=== PATIENT | male | born 1960 | race Hispanic/Latino ===

== ENCOUNTER 2017-11-09 09:59 | Inpatient (IN) | payer BC, MEDICARE ==
[2017-11-09] MEDS: Albuterol-Ipratrop 3 mg / 0.5 (3 ml) UD IH SCH ×3 (10:22→11:00)
--- NOTE | 2017-11-09 10:23 | ED PDOC ---
Arrival/HPI - General Chief Complaint: Shortness Of Breath Time Seen by Provider: 11/09/17 10:11 Historian: Patient, Family (brother) - History of Present Illness Narrative History of Present Illness (Text): 11/09/17 10:18 pt p/w + sob x 4-5 days, worse with exertion, currently sob at rest; + coughing without sputum production over the last few days; pt also noted worsening weight gain and increasing abd girth as well as lower ext swelling; pt states swelling to lower legs has been ongoing since 2 weeks ago; pt states his last alcohol drink was last week; pt states he is not making any noises with breathing, no wheezing; pt states no fever/chills/sweats, no cp/palpitations, mild diffuse abd pain, no n/v, no numbness/tingling, + b/l upper thigh burning/ pain; pt states no urinary/bowel changes, no rashes; no altered behavior is noted by brother; no fall/trauma/sick contact, no travel; pt is here for further eval; pt's without other complaints. 11/09/17 10:26 Time/Duration: < week Symptom Onset: Gradual Symptom Course: Worsening Quality: Tightness Severity Level: 8 Activities at Onset: Rest Context: Sitting, Walking Past Medical History - Provider Review Nursing Documentation Reviewed: Yes - Travel History Have you recently traveled outside [place] w/in the past 3 mons?: No - Infectious Disease Hx of Infectious Diseases: None - Tetanus Immunization Tetanus Immunization: Unknown - Cardiac Hx Cardiac Disorders: Yes Hx Peripheral Edema: Yes (ble +2) - Pulmonary Hx Respiratory Disorders: Yes Hx Asthma: Yes Hx Chronic Obstructive Pulmonary Disease (COPD): Yes Other/Comment: current smoker - Neurological Hx Neurological Disorder: Yes Other/Comment: nueropathy - HEENT Hx HEENT Disorder: Yes (wears eyeglassees) - Hematological/Oncological Hx Anemia: Yes Hx Cirrhosis: Yes - Integumentary Other/Comment: muiltiple healed leg wounds ble - Musculoskeletal/Rheumatological Hx Arthritis: Yes Hx Back Pain: Yes Hx Falls: No Hx Herniated Disk: Yes Hx Spinal Stenosis: Yes Hx Unsteady Gait: Yes (cane) - Gastrointestinal Hx Gastrointestinal Disorders: Yes (ascites; no paracentesis in the past) Hx Liver Failure: Yes - Genitourinary/Gynecological Hx Genitourinary Disorders: (swollen testicles) - Psychiatric Hx Anxiety: Yes Hx Depression: Yes Hx Physical Abuse: No Hx Substance Use: Yes (alcohol) Other/Comment: ETOH - Past Surgical History Past Surgical History: Non-Contributing - Anesthesia Hx Anesthesia: No - Suicidal Assessment Suicidal Thoughts: No Feels Threatened In Home Enviroment: No Family/Social History - Physician Review Nursing Documentation Reviewed: Yes Family/Social History: Unknown Family HX Smoking Status: Current Some Days Smoker Hx Alcohol Use: Yes Amount per day: 6 Hx Substance Use: No Allergies/Home Meds Allergies/Adverse Reactions: Allergies No Known Allergies Allergy (Verified 11/09/17 10:02) Home Medications: Home Meds Medication Instructions Recorded Confirmed Albuterol Sulfate [Proair 1 puff IH DAILY 11/09/17 11/09/17 Respiclick] Clonazepam [Klonopin] 0.5 mg PO BID 11/09/17 11/09/17 Fluticasone/Vilanterol [Breo 1 puff IH DAILY 11/09/17 11/09/17 Ellipta 100-25 Mcg INH] Folic Acid [Folic Acid] 1 mg PO DAILY 11/09/17 11/09/17 Furosemide [Lasix] 20 mg PO DAILY 11/09/17 11/09/17 Gabapentin [Neurontin] 600 mg PO BID 11/09/17 11/09/17 QUEtiapine [SEROquel] 200 mg PO DAILY 11/09/17 11/09/17 Tiotropium [place] [Spiriva 1 puff IH DAILY 11/09/17 11/09/17 Respimat] Review of Systems - Review of Systems Constitutional: Weight Change Eyes: Normal ENT: Normal Respiratory: SOB, Cough. absent: Sputum, Wheezing Cardiovascular: Normal Gastrointestinal: Abdominal Pain Genitourinary Male: Normal Musculoskeletal: Joint Swelling Skin: Normal Neurological: Dizziness Endocrine: Normal Hemo/Lymphatic: Normal Psychiatric: Normal Physical Exam Vital Signs Reviewed: Yes Vital Signs Temp Pulse Resp BP Pulse Ox 11/09/17 11:51 95 H 17 136/86 97 11/09/17 10:31 16 97 11/09/17 10:22 161/94 H 11/09/17 10:05 98.6 F 95 H 21 161/94 H 97 Temperature: Afebrile Blood Pressure: Hypertensive Pulse: Regular Respiratory Rate: Tachypneic Appearance: Positive for: Well-Appearing, Non-Toxic, Other (uncomfortable, moderate distress due to sob, alert/awake, resting in bed, cooperative) Pain Distress: None Mental Status: Positive for: Alert and Oriented X 3 - Systems Exam Head: Present: Atraumatic, Normocephalic Pupils: Present: PERRL, Other (no nystagmus, no photophobia, sclera slightly icteric, visual field intact b/l) Extroacular Muscles: Present: EOMI Ears: Present: Normal Mouth: Present: Dry, Other (fair dentitions, no drooling/stridor, no dysphonia, no exudate/lesions) Nose (External): Present: Atraumatic Neck: Present: Normal Range of Motion, Trachea Midline, Other (no meningeal signs noted). No: MIDLINE TENDERNESS Respiratory/Chest: Present: Other (no asymmetric breath sounds, decr breath sounds noted, mild tachypenia, no accessory muscle use noted, basiliar crackles noted, no gross wheezing/rales/rhonchi b/l). No: Respiratory Distress, Accessory Muscle Use Cardiovascular: Present: Regular Rate and Rhythm, Normal S1, S2, Tachycardic, Other (distant heart sound, +S1, +S2, + tachy, no murmur, no regurg). No: Murmurs Abdomen: Present: Normal Bowel Sounds, Other (well nourished/obese male, + distended abd, no focal tenderness, no fluid wave noted, no martínez's sign, no mcburney's point tenderness, no masses/rebound/guarding/rigidity). No: Tenderness, Distention, Peritoneal Signs Back: Present: Normal Inspection Upper Extremity: Present: Normal Inspection, Normal ROM, NORMAL PULSES, Neurovascularly Intact, Capillary Refill < 2s. No: Cyanosis, Edema Lower Extremity: Present: NORMAL PULSES, Swelling, Other (b/l lower ext swelling /pitting edema ~ +3-4/5 up to proximal knee region; dry skin, no ulcerations noted, no harsha's sign noted b/l, strength 5/5 grossly intact in all limbs, +2/ 2 distal pulses noted; slight dusky appearance of b/l foot/toes, warm to touch however). No: Edema, Harsha's Sign Neurological: Present: GCS=15, CN II-XII Intact, Speech Normal, Other (no facial asymmetries) Skin: Present: Warm, Dry. No: Rashes, Erythematous, Pale Psychiatric: Present: Alert, Oriented x 3, Normal Insight, Normal Concentration Medical Decision Making ED Course and Treatment: 11/09/17 10:27 Impression: sob/weight gain/leg swelling, abd distention i have consider all the differential diagnosis regarding pt's chief medical complaints/clinical findings, including but are not limited to: Differential Diagnosis included but are not limited to: likely worsening ascites , r/o cardiogenic cause, r/o pulm cause, r/o infection; unlikely encephalopathy A/P: weakness/weight changes/leg swelling/abd distention/sob - labs - iv - xray - u/s - ekg - observe - supportive care 11/09/17 13:15 12:30pm - I spoke with Dr Mackey, PCP [facility], made aware, agrees with ED mgt/ txt/dx and agrees with admission, would like Dr Sebastien Johnston consulted for possible IR procedure tomorrow and agrees with consult with PSYCH for alcohol detoxification pt is feeling improved, less sob pt is able to speak in full sentences i have addressed pt's concern/questions regarding his diagnosis/medical findings and possibility of paracentesis pt is made aware pt agrees with admission Re-evaluation Time: 10:29 Reassessment Condition: Improving,but remains with symptoms - Critical Care Critical Care Minutes: 45 minutes Critical Care Time: Excluding Proc Time Narrative Critical Care (Text): 11/09/17 10:36 critical care time: 45min, excluding procedure time, excluding time teaching residents/students/mid-level providers; including initial eval/diagnosis, diagnostic interpretation, re-eval, consultations, final disposition - Lab Interpretations Lab Results: 11/09/17 10:10 11/09/17 10:10 Lab Results 11/09/17 11:20: Urine Color Yellow, Urine Appearance Clear, Urine pH 7.0, Ur Specific [place] 1.010, Urine Protein Negative, Urine Glucose (UA) Negative, Urine Ketones Negative, Urine Blood Negative, Urine Nitrate Negative, Urine Bilirubin Negative, Urine Urobilinogen 0.2, Ur Leukocyte Esterase Negative 11/09/17 10:35: pO2 23 L, VBG pH 7.36, VBG pCO2 55.0, VBG HCO3 31.1 H, VBG Total CO2 32.8 H, VBG O2 Sat (Calc) 46.7, VBG Base Excess 4.2 H, VBG Potassium 4.0, Glucose 120 H, Lactate 1.8, FiO2 21.0, Sodium 140.0, Chloride 99.0, Venous Blood Potassium 4.0 11/09/17 10:10: Alcohol, Quantitative < 10 11/09/17 10:10: Ammonia < 9 L 11/09/17 10:10: Sodium 142, Potassium 3.8, Chloride 100, Carbon Dioxide 29, Anion Gap 17, BUN 9, Creatinine 0.9, Est GFR ( Amer) > 60, Est GFR (Non- Af Amer) > 60, Random Glucose 116 H, Calcium 9.7, Phosphorus 4.1, Magnesium 2.1 , Total Bilirubin 2.0 H, AST 38, ALT 32, Alkaline Phosphatase 115, Lactate Dehydrogenase 477, Total Creatine Kinase 95, Troponin I < 0.01, NT-Pro-B Natriuret Pep 1020 H, Total Protein 8.5 H, Albumin 4.5, Globulin 4.0, Albumin/ Globulin Ratio 1.1 11/09/17 10:10: PT 16.5 H, INR 1.49 H, APTT 33.6 11/09/17 10:10: WBC 6.1, RBC 5.30, Hgb 14.9, Hct 47.1, MCV 88.9, MCH 28.1, MCHC 31.6, RDW 14.5, Plt Count 151, MPV 10.8, Gran % 67.3, Lymph % (Auto) 16.3 L, [place] % (Auto) 13.2 H, Eos % (Auto) 2.5, Baso % (Auto) 0.7, Gran # 4.12, Lymph # 1.0 L, [place] # 0.8 H, Eos # 0.2, Baso # 0.04 elevated BNP, mildly elevated bili I have reviewed the lab results: Yes (elevated BNP) Interpretation: Abnormal lab values - RAD Interpretation Radiology Orders: 11/09/17 10:13 CHEST TWO VIEWS (PA/LAT) [RAD] Stat 11/09/17 10:14 DUPLEX LOWER EXTRM VEIN BILAT [US] Stat 11/09/17 10:16 ABDOMEN COMPLETE [US] Stat Cxr - poor insp effort right pleural atelectasis linear opacity noted to right lower lung horn vascular congestion noted 11/09/17 11:50 chest xray Creator : Chalino Tobar MD IMPRESSION: Right lower lobe infiltrate, atelectasis. These represent new findings compared to the prior study. Concordant results with the preliminary interpretation rendered by the emergency department physician\RADHA at the conclusion of the procedure. 11/09/17 11:57 US abdomen Creator : Chalino Tobar MD IMPRESSION: Hepatosplenomegaly without focal abnormality. Intra-abdominal ascites. Duplex u/s: prelim reading, NO DVT b/l Boilermaker Loftsman: ED Physician, Radiologist - EKG Interpretation EKG Interpretation (Text): 11/09/17 11:09 Sinus tach at 100 bpm, with PACs, normal axis, diffuse low voltage, non- specific st-t changes, ABNL EKG; unchanged compare with old ekg 03/201511/09/17 11:11 Interpreted by ED Physician: Yes Type: 12 lead EKG - Medication Orders Current Medication Orders: Discontinued Medications Albuterol/Ipratropium (Duoneb 3 Mg/0.5 Mg (3 Ml) Ud) 3 ml IH Q15M ITALIA Stop: 11/09/17 10:46 Last Admin: 11/09/17 11:00 Dose: 3 ml Furosemide (Lasix) 100 mg IVP STAT STA Stop: 11/09/17 10:15 Last Admin: 11/09/17 10:22 Dose: 100 mg MAR Blood Pressure Document 11/09/17 10:22 [facility] (Rec: 11/09/17 10:23 [facility] [id number]) Blood Pressure Blood Pressure (100/60-150/90) 161/94 IVP Administration Document 11/09/17 10:22 [facility] (Rec: 11/09/17 10:23 [facility] [id number]) Charges for Administration # of IVP Administrations 1 Disposition/Present on Arrival - Present on Arrival Any Indicators Present on Arrival: No History of DVT/PE: No History of Uncontrolled Diabetes: No Urinary Catheter: No History of Decub. Ulcer: No History Surgical Site Infection Following: None - Disposition Have Diagnosis and Disposition been Completed?: Yes Diagnosis: Ascites due to alcoholic cirrhosis, Shortness of breath, Leg edema Disposition: HOSPITALIZED Disposition Time: 11:18 Patient Plan: Admission Condition: STABLE
[2017-11-09 10:37] LABS: BASO # 0.04 K/mm3 (0.0-2.0); BASO % 0.7 % (0.0-3.0); EOS # 0.2 (0.0-0.7); EOS % 2.5 % (1.5-5.0); GRAN # 4.12 (1.4-6.5); GRAN % 67.3 % (50.0-68.0); HEMOGLOBIN 14.9 g/dL (14.0-18.0); LYMPH % 16.3 % (22.0-35.0); MEAN CELL VOLUME 88.9 fl (80.0-105.0); MEAN CORPUSCULAR HEMOGLOBIN 28.1 pg (25.0-35.0); MEAN CORPUSCULAR HGB CONC 31.6 g/dl (31.0-37.0); MEAN PLATELET VOLUME 10.8 fl (7.0-11.0); MONO # 0.8 (0.1-0.6); MONO % 13.2 % (1.0-6.0); RBC 5.3 10^6/uL (3.5-6.1); RED CELL DISTRIBUTION WIDTH 14.5 % (11.5-14.5); WHITE BLOOD COUNT 6.1 10^3/ul (4.5-11.0)
[2017-11-09 10:40] LABS: VENOUS BLOOD GAS BASE EXCESS 4.2 mmol/L (0.0-2.0); VENOUS BLOOD GAS PO2 23 mm/Hg (30-55); VENOUS BLOOD PH 7.36 (7.32-7.43)
[2017-11-09 10:43] LABS: ALB/GLOB RATIO 1.1 (1.1-1.8); ALBUMIN 4.5 g/dL (3.0-4.8); ALT/SGPT 32 U/L (7-56); AST/SGOT 38 U/L (17-59); BLOOD UREA NITROGEN 9 mg/dL (7-21); CALCIUM 9.7 mg/dL (8.4-10.5); GFR AFRICAN-AMERICAN > 60; GFR NON-AFRICAN AMERICAN > 60; MAGNESIUM 2.1 mg/dL (1.7-2.2)
[2017-11-09 10:47] LABS: INR 1.49 (0.93-1.08); PARTIAL THROMBOPLASTIN TIME 33.6 Seconds (25.1-36.5); PROTHROMBIN TIME 16.5 SECONDS (9.4-12.5)
[2017-11-09 10:54] LABS: B-TYPE NATRIURETIC PEPTIDE 1020 pg/mL (0-450); TROPONIN I < 0.01 ng/mL
[2017-11-09 11:47] LABS: URINE BILIRUBIN NEGATIVE (NEGATIVE); URINE BLOOD NEGATIVE (NEGATIVE); URINE GLUCOSE (UA) NEGATIVE (NEGATIVE); URINE LEUKOCYTE ESTERASE NEGATIVE Leu/uL (NEGATIVE); URINE NITRATE NEGATIVE (NEGATIVE); URINE PROTEIN NEGATIVE mg/dL (<30 mg/dL); URINE UROBILINOGEN 0.2 E.U./dL (<1 E.U./dL)
--- NOTE | 2017-11-09 11:48 | RAD ---
HISTORY: Shortness of breath. COMPARISON: 03/23/2015. TECHNIQUE: Chest PA and lateral FINDINGS: LUNGS: Mahesh lower lobe infiltrates/atelectasis. PLEURA: No significant pleural effusion identified. No pneumothorax apparent. CARDIOVASCULAR: Cardiomegaly. No evidence of acute, significant cardiovascular disease. OSSEOUS STRUCTURES: No significant abnormalities. VISUALIZED UPPER ABDOMEN: Normal. OTHER FINDINGS: None. IMPRESSION: Right lower lobe infiltrate, atelectasis. These represent new findings compared to the prior study. Concordant results with the preliminary interpretation rendered by the emergency department physician procedure.
[2017-11-09 11:51] LABS: URINE APPEARANCE CLEAR (CLEAR); URINE COLOR YELLOW (YELLOW)
--- NOTE | 2017-11-09 11:55 | US ---
HISTORY: severe abd swelling, likely ascites COMPARISON: 03/25/2015 TECHNIQUE: Sonographic evaluation of the abdomen. FINDINGS: LIVER: Measures 22.8 cm. Hepatopedal blood flow. Fatty infiltration manifest ultrasonographically as increased echogenicity of the liver parenchyma. No mass. No intrahepatic bile duct dilatation. GALLBLADDER: Unremarkable. No gallstones. COMMON BILE DUCT: Measures 6.5 mm. No stones. No dilatation. PANCREAS: Obscured by overlying bowel gas. Non diagnostic assessment of the pancreas RIGHT KIDNEY: Measures 6.4 x 14cm. Normal echogenicity. No calculus, mass, or hydronephrosis. LEFT KIDNEY: Measures 6.4 x 13.7cm. Normal echogenicity. No calculus, mass, or hydronephrosis. SPLEEN: Splenomegaly. Orthogonal measurements 9.4 x 13.8 cm. AORTA: Obscured by overlying bowel gas. Non diagnostic assessment of abdominal aorta IVC: Obscured by overlying bowel gas. Non diagnostic assessment of inferior vena cava OTHER FINDINGS: Intra-abdominal ascites difficult to quantify. IMPRESSION: Hepatosplenomegaly without focal abnormality. Intra-abdominal ascites.
[2017-11-09 15:06] VITALS: BMI 46.6
[2017-11-09] MEDS ORDERED: Pneumococcal 23-Valent Vaccine IM ONE (15:06)
[2017-11-09] MEDS ORDERED: Influenza Vaccine 60 mcg/0.5 mL SYR (4YR UP) IM ONE (15:06)
[2017-11-09] MEDS: HYDROmorphone 0.5 mg/0.5 ml ISec IVP PRN (16:41)
[2017-11-09] MEDS ORDERED: TIOTROPIUM BROMIDE IH SCH (16:45)
[2017-11-09 20:00] LABS: IRON 62 ug/dL (45-180)
[2017-11-09 20:14] LABS: % IRON SATURATION 16 % (20-55); TOTAL IRON BINDING CAPACITY 375 ug/dL (261-462)
[2017-11-09] MEDS: MethylPREDNISolone 40 mg Vial IVP SCH (21:51)
--- NOTE | 2017-11-10 00:38 | CON ---
DATE: 11/09/2017 PULMONARY CONSULTATION REFERRING PHYSICIAN: Dr. Mackey REASON FOR CONSULT: Sleep apnea syndrome, chronic lung disease. HISTORY OF PRESENT ILLNESS: This is a 57-year-old gentleman with past medical history significant for chronic obstructive lung disease, history of respiratory failure in the past, chronic leg edema, history of peripheral neuropathy, anemia, cirrhotic liver, ascites, degenerative joint disease, herniated disk, spinal stenosis, has a history of paracentesis in the past, decompensated liver, scrotal edema, anxiety, depression, history of suicidal ideation in the past, comes in the ER with shortness breath, cough, leg swelling, received diuretics, feels better. No hemoptysis. No hematemesis. No hematuria. No diarrhea reported. PAST MEDICAL HISTORY: As per history of present illness. FAMILY HISTORY: Significant cardiopulmonary disease is reported. SOCIAL HISTORY: Active smoker, drinks excessive alcohol use. ALLERGIES: NONE KNOWN. MEDICATIONS: He is on Dilaudid 0.25 mg q. 6 hours p.r.n., folic acid 1 mg daily, Klonopin 0.25 mg twice a day, Lasix 20 mg daily, Neurontin 600 mg twice a day, Seroquel 200 mg daily. REVIEW OF SYSTEMS: No headache or rhinitis. Has cough, shortness of breath, chest pain. No nausea, no vomiting. No diarrhea. Has increased abdominal girth, increased leg swelling. Admitted snoring, known sleep apnea syndrome. PHYSICAL EXAMINATION: GENERAL: [id number] distress. VITAL SIGNS: Temperature is 98, heart rate 101, respiratory rate is 20, blood pressure 141/91, pulse oximetry 98% on 2 liters nasal cannula. HEENT: Moist mucous membrane. Crowded airway. Mallampati score is 4. NECK; Supple. No JVD. LUNGS: Has scattered rhonchi and wheezing. HEART: S1 and S2. ABDOMEN: Has ascites, distended. EXTREMITIES: Has significant swelling. NEUROLOGIC: Awake and alert, follows simple commands. LABORATORY DATA: Shows hemoglobin 14.9, hematocrit 47.1, WBC 6.1, platelet count is 151. INR 1.49, PTT 34. Has a VBG done which shows pH 7.36, pCO2 55, O2 is 23. Sodium 142, potassium 3.8, chloride 100, bicarbonate 29, BUN 9, creatinine 0.9, glucose 116, calcium is 9.7, magnesium 2.1, phosphorus 4.1, total bili 2.0, AST 38, ALT 32, alk phos is 115, ammonia less than 19. ProBNP 1020, albumin 4.5. Troponin less than 0.01. Alcohol level less than 10. Has abdominal ultrasound done, shows hepatosplenomegaly without focal abnormality, intra-abdominal ascites. Chest x-ray done in ER shows right lower lobe infiltrate and atelectasis. IMPRESSION AND PLAN: Pneumonia, morbid obesity, sleep apnea syndrome, cirrhotic liver with ascites, obstructive pulmonary disease, history of pulmonary hypertension, history of anxiety, depression, history of suicidal ideation in the past. We will start antibiotics, IV and inhaled bronchodilators, pain management, diuretics. May benefit from therapeutic paracentesis. The patient has to stop smoking. We will place him on BiPAP while sleeping. Careful with sedation. Fall precautions. We will add thiamine. Thank you and we will follow with you. Juan Marie MD
[2017-11-10 07:05] LABS: HEMOGLOBIN 14.2 g/dL (14.0-18.0); MEAN CELL VOLUME 88.9 fl (80.0-105.0); MEAN CORPUSCULAR HEMOGLOBIN 27.6 pg (25.0-35.0); MEAN CORPUSCULAR HGB CONC 31.1 g/dl (31.0-37.0); MEAN PLATELET VOLUME 10.7 fl (7.0-11.0); RBC 5.14 10^6/uL (3.5-6.1); RED CELL DISTRIBUTION WIDTH 14.4 % (11.5-14.5); WHITE BLOOD COUNT 5.6 10^3/ul (4.5-11.0)
[2017-11-10 07:11] LABS: INR 1.52 (0.93-1.08); PROTHROMBIN TIME 16.9 SECONDS (9.4-12.5)
[2017-11-10 07:15] LABS: B-TYPE NATRIURETIC PEPTIDE 782 pg/mL (0-450)
[2017-11-10 07:20] LABS: LDL CHOLESTEROL 77 mg/dL (0-129)
[2017-11-10 07:30] LABS: ALB/GLOB RATIO 1.2 (1.1-1.8); ALBUMIN 4.1 g/dL (3.0-4.8); ALT/SGPT 32 U/L (7-56); AST/SGOT 39 U/L (17-59); BILIRUBIN,DIRECT 0.8 mg/dL (0.0-0.4); BLOOD UREA NITROGEN 11 mg/dL (7-21); CALCIUM 9.1 mg/dL (8.4-10.5); GFR AFRICAN-AMERICAN > 60; GFR NON-AFRICAN AMERICAN > 60; HDL CHOLESTEROL 41 mg/dL (29-60)
--- NOTE | 2017-11-10 08:58 | HP ---
CHIEF COMPLAINT: Shortness of breath. HISTORY OF PRESENT ILLNESS: Mr. Garth Kong is a 57-year-old male with history of ascites, feeling with shortness of breath 4 to 5 days, worse with reversion, currently shortness of breath at rest, coughing without sputum production over the last few days. The patient also noted worsening of weight gain and feeling abdominal tilt as well as lower extremities. The patient states that his last alcohol drink was last week. The patient states he is not making any noises with breathing, and no wheezing. The patient states no fever, chills, or sweats. No chest pain, palpitation, mild diffuse abdominal pain. No nausea or vomiting, diarrhea. No numbness or tingling. States no urinary or bowel changes. No rashes. No altered mental status. No fever. No chills. PAST MEDICAL HISTORY: Peripheral edema +2, asthma, COPD, current smoker, peripheral neuropathy, anemia, cirrhosis of the liver, multiple healed leg wound, arthritis, back pain, herniated disc, spinal stenosis, unsteady gait, history of ascites, no paracentesis in the past, liver failure, swollen testicles, anxiety, depression, and history of alcohol abuse. FAMILY HISTORY: Father and mother, noncontributory. HABITS: Smoking, active smoker. Alcohol, active drinking more per day 6; substance abuse, no. ALLERGIES: THE PATIENT IS ALLERGIC WITH ANY MEDICATION. HOME MEDICATIONS: Klonopin, Ventolin, folic acid, Lasix, Neurontin, Seroquel, and Spiriva. REVIEW OF SYSTEMS: The patient seen and EXAMINED on the bedside in the ER. was sitting in the ER also. He has weight gain, has shortness of breath, swelling of the legs, dizziness. No fever. No chills. No hematuria or hematochezia. PHYSICAL EXAMINATION: VITAL SIGNS: Temperature 98.6, pulse 95, respiratory rate 21, blood pressure 120/80 , and pulse oximetry 97. HEENT: Head is normocephalic and atraumatic. Eyes; PERRLA. Extraocular movements are intact. Conjunctivae clear. Nose patent. Mucous membrane moist. NECK: Supple. No carotid bruit, JVD or thyromegaly. CHEST: Bilaterally symmetrical. HEART: S1 and S2 positive. LUNGS: Clear to auscultation. ABDOMEN: Soft. Bowel sounds positive. No organomegaly. EXTREMITIES: Positive edema and pigmentation due to stasis dermatitis. NEUROLOGIC: Awake and alert. Moving all 4 extremities. Cranial nerves are II to XII are grossly intact. Obeying orders. LABORATORY DATA: White blood cells is 6.1, hemoglobin is 14.9, hematocrit is 47.1 and platelets are 151. Sodium 142, potassium 3.8, BUN 9, creatinine 0.9, and glucose of 116. ASSESSMENT AND PLAN: Mr. Garth Kong is a [id number] male came with shortness of breath, has pleural atelectasis, linear opacity noted in the right lower lung field, vascular congestion, right lower lobe infiltrates, hepatomegaly, obesity, ascites due to alcohol liver cirrhosis, history of ethanol abuse, history of smoking, peripheral edema, chronic obstructive pulmonary disease, peripheral neuropathy, multiple healed ulcer on the legs, and stasis dermatitis. Gastrointestinal and deep venous thrombosis prophylaxis. Repeat labs. Discussion done with ER physician. Consult called with Dr. Filiberto Johnston for paracentesis. We will follow up. Winsome Mackey MD MARIZA
[2017-11-10] MEDS: MethylPREDNISolone 40 mg Vial IVP SCH ×2 (09:39→22:21)
[2017-11-10] MEDS: ALBUTEROL SULFATE IH SCH (09:41)
[2017-11-10] MEDS: Tiotropium Bromide [Spiriva Respimat] IH SCH (09:41)
[2017-11-10] MEDS: HYDROmorphone 0.5 mg/0.5 ml ISec IVP PRN ×2 (09:41→20:30)
[2017-11-10] MEDS: Fluticasone/Vilanterol [Breo Ellipta 100-25 Mcg Inh] IH SCH (09:41)
[2017-11-10] MEDS ORDERED: Tiotropium 18 mcg Cap For Inhalation IH SCH (10:00)
[2017-11-10] MEDS ORDERED: cefTRIAXone 1 gm 1 GM/100 ML BAG IVPB SCH (10:00)
[2017-11-10 11:48] LABS: FOLATE > 20.0 ng/mL
--- NOTE | 2017-11-10 13:05 | PCM.SURG1 ---
Surgeon's Initial Post Op Note - Surgeon's Notes Surgeon: Drew Romero MD Construction Management Assistant: NONE Type of Anesthesia: Local Pre-Operative Diagnosis: Cirrhosis, ascites Operative Findings: US showed a large amount of ascites Post-Operative Diagnosis: Cirrhosis, ascites Operation Performed: US guided paracentesis. Specimen/Specimens Removed: 6500 cc of straw colored fluid Estimated Blood Loss: EBL {In ML}: 1 Blood Products Given: N/A Drains Used: No Drains Post-Op Condition: Fair Date of Surgery/Procedure: 11/10/17 Time of Surgery/Procedure: 12:45
--- NOTE | 2017-11-10 13:11 | US ---
HISTORY: Leg pain and swelling. Evaluate for DVT PHYSICIAN(S): Filiberto Johnston MD. TECHNIQUE: Duplex sonography and color-flow Doppler with graded compression were used to evaluate the deep venous systems of both lower extremities. The exam is limited by body habitus and edema. The tibial veins are not well seen FINDINGS: The visualized deep venous systems of both lower extremities are sonographically normal and compressible. Normal wave forms and augmentation are seen. There is no sonographic evidence for deep venous thrombosis in the visualized segments of both lower extremities. IMPRESSION: No sonographic evidence for deep venous thrombosis in the visualized segments of both lower extremities. Limited study
--- NOTE | 2017-11-10 13:40 | US ---
Date of Procedure: 11/10/2017 PROCEDURE: Ultrasound-guided paracentesis, CPT 56429 Medications: 7 cc 1% Lidocaine HISTORY: Ascites, abdominal pain, cirrhosis TECHNIQUE: Following informed consent , the patient was placed supine on the stretcher and the site was marked. A limited abdominal ultrasound was performed that showed a large amount of intra-abdominal fluid. Procedural time out was called and the Pt's abdomen was marked and prepped and draped in the usual sterile fashion. Ultrasound-guided large volume paracentesis performed. A total of 6.5 liters of straw colored fluid was removed without complication. IMPRESSION: Ultrasound-guided large volume paracentesis.
[2017-11-10 15:29] LABS: BODY FLUID TYPE PERITONEAL
[2017-11-10 15:41] LABS: BF GROSS APPEARANCE SL CLOUDY (CLEAR); BODY FLUID TOTAL COUNT 100 (0-0)
--- NOTE | 2017-11-10 17:31 | CARD ---
APPROVED REPORT EKG Measurement Heart [id number] [id number] [id number] <Conclusion> Sinus rhythm with premature atrial complexes Right superior axis deviation Pulmonary disease pattern Nonspecific T wave abnormality Abnormal ECG
--- NOTE | 2017-11-10 21:14 | PN ---
PULMONARY PROGRESS NOTE DATE: 11/10/2017 REFERRING PHYSICIAN: Winsome Mackey MD SUBJECTIVE: He is lying in the bed, feels better, tolerated BiPAP well, and generalized pain is better. Cough and shortness of breath is better, status post paracentesis. OBJECTIVE: GENERAL: In no acute distress. VITAL SIGNS: Temperature is 98, heart is 90, respiratory rate is 20, blood pressure is 113/54, and pulse ox is 98% 2 L nasal cannula. HEENT: Moist mucous membrane. Crowded airway. Mallampati score is IV. NECK: Supple. No JVD. LUNGS: Has a few scattered rhonchi. HEART: S1 and S2. ABDOMEN: Positive bowel sounds, much softer today. EXTREMITIES: There is significant edema. NEUROLOGIC: Awake and alert and follows simple commands. MEDICATIONS: He is on Dilaudid 0.25 mg IV q.6 hours p.r.n., folic acid 1 mg daily, also on Klonopin 0.25 mg twice a day, Lasix 40 mg twice a day, meropenem 1 g IV q.8 hours, gabapentin 600 mg twice a day, Seroquel 200 mg daily, Solu-Medrol mg q.12 hours, vitamin B1 100 mg daily, and Zithromax 500 mg daily. LABORATORY DATA: Shows hemoglobin of 14.2, hematocrit 45.7, WBC 5.6, and platelet is 162. INR 1.52. Sodium 142, potassium 4.7, chloride 100, bicarbonate is 11, creatinine is 0.9, glucose 134, calcium 9.1, AST 39, ALT 32, alk phos is 94, albumin is 4.1, triglyceride is 7.1, and cholesterol is 133. Folate greater than 20. B12 is 673. TSH is 3.20. Has a paracentesis done today, which shows a total 6.5 L of fluid was removed. IMPRESSION AND PLAN: Pneumonia, morbid obesity, sleep apnea syndrome, cirrhotic liver, ascites, obstructive pulmonary disease, pulmonary hypertension, anxiety disorder, depression, history of suicidal ideation in the past, status post volume paracentesis, and continue IV and inhaled bronchodilator. Continue antibiotics. BiPAP while sleeping. Follow up electrolytes closely and watch for prerenal status closely. Thank you and we will follow with you. Juan Marie MD
--- NOTE | 2017-11-10 21:49 | CP.PCM.PN ---
<Mary Grace Phillips - Last Filed: 11/11/17 01:09> Subjective - Date & Time of Evaluation Date of Evaluation: 11/10/17 Time of Evaluation: 09:30 - Subjective Subjective: 68 yr male w/ history of periperhal edema, asthma, COPD, peripheral neuropathy, anemia, cirrhosis of liver, multiple leg wound, DJD, arthritis, back pain, herniated disc, morbid obesity, spinal stenosis, unsteady gait, swollen testicles, anxiety, depression, & ETOH abuse. Pt resting in bed preparing for abdominal paracentesis for his ascites. He denies any stomach discomfort at this time. He states that his legs are painful and are always swollen. Denies any headaches, SOB, N/V, fevers, constipation, diarrhea, urinary changes or distress. Objective - Vital Signs/Intake and Output Vital Signs (last 24 hours): Temp Pulse Resp BP Pulse Ox 98.3 F 90 20 113/54 L 98 11/10/17 16:00 11/10/17 16:00 11/10/17 16:00 11/10/17 16:00 11/10/17 16:00 Intake and Output: 11/10/17 11/11/17 18:59 06:59 Intake Total 720 780 Balance 720 780 - Medications Medications: Current Medications Azithromycin (Zithromax) 500 mg PO DAILY [facility] PRN Reason: Protocol Last Admin: 11/10/17 09:40 Dose: 500 mg Clonazepam (Klonopin) 0.25 mg PO BID [facility] PRN Reason: Protocol Last Admin: 11/10/17 17:03 Dose: 0.25 mg Folic Acid (Folic Acid) 1 mg PO DAILY [facility] Last Admin: 11/10/17 09:40 Dose: 1 mg Furosemide (Lasix) 40 mg IVP Q12 [facility] Last Admin: 11/10/17 09:42 Dose: 40 mg Gabapentin (Neurontin) 600 mg PO BID [facility] PRN Reason: Protocol Last Admin: 11/10/17 17:03 Dose: 600 mg Home Med (Home Med) 1 unit IH DAILY [facility] Last Admin: 11/10/17 09:41 Dose: 1 unit Home Med (Home Med) 1 unit IH DAILY [facility] Last Admin: 11/10/17 09:41 Dose: 1 unit Home Med (Home Med) 1 unit IH DAILY [facility] Last Admin: 11/10/17 09:41 Dose: 1 unit Hydromorphone HCl (Dilaudid) 0.25 mg IVP Q6H PRN PRN Reason: Pain, severe (8-10) Last Admin: 11/10/17 20:30 Dose: 0.25 mg Meropenem (Merrem Iv 1 Gm Premix) 50 mls @ 100 mls/hr IVPB Q8 [facility] PRN Reason: Protocol Stop: 11/19/17 22:01 Methylprednisolone (Solu-Medrol) 30 mg IVP Q12 [facility] Last Admin: 11/10/17 09:39 Dose: 30 mg Quetiapine Fumarate (Seroquel) 200 mg PO DAILY [facility] Last Admin: 11/10/17 09:39 Dose: 200 mg Thiamine HCl (Vitamin B1 Tab) 100 mg PO DAILY [facility] Last Admin: 11/10/17 09:40 Dose: 100 mg - Labs Labs: 11/10/17 06:40 11/10/17 06:40 PT 16.9 SECONDS (9.4-12.5) H 11/10/17 06:40 INR 1.52 (0.93-1.08) H 11/10/17 06:40 APTT 33.6 Seconds (25.1-36.5) 11/09/17 10:10 - Constitutional Appears: Chronically Ill - Head Exam Head Exam: ATRAUMATIC, NORMAL INSPECTION, NORMOCEPHALIC - Eye Exam Eye Exam: EOMI, Normal appearance, PERRL - ENT Exam ENT Exam: Mucous Membranes Moist, Normal Exam - Neck Exam Neck Exam: Full ROM, Normal Inspection. absent: Lymphadenopathy - Respiratory Exam Respiratory Exam: Decreased Breath Sounds, Clear to Ausculation Bilateral, NORMAL BREATHING PATTERN - Cardiovascular Exam Cardiovascular Exam: REGULAR RHYTHM, +S1, +S2. absent: Murmur - GI/Abdominal Exam GI & Abdominal Exam: Distended, Firm Additional comments: ascites. morbidly obese. - Extremities Exam Extremities Exam: Joint Swelling, Tenderness Additional comments: BLE discoloration. warm. edematous +2 - Neurological Exam Neurological Exam: Alert, Awake, Oriented x3 - Psychiatric Exam Psychiatric exam: Depressed, Normal Affect - Skin Skin Exam: Dry, Intact, Normal Color, Warm Assessment and Plan (1) Hyperglycemia Status: Acute (2) Elevated LFTs Status: Acute (3) Pneumonia Status: Acute (4) Ascites due to alcoholic cirrhosis Status: Acute (5) Shortness of breath Status: Acute - Assessment and Plan (Free Text) Plan: IV meropenem/azithromycin. IV steroids. Bipap. Paracentesis done (650ml removed) . BLE discoloration, possible cellulitis podiatry evaluation pending. ETOH/ Depression psych evaluation pending. Consults: Surgery - Dr. Katya Johnston = ? GI - Dr. Garcias = ? Pulmonary - = IV abx azithromycin. IV and inhaled bronchodilators. therapeutic paracentesis recommended. smoking cessation, fall precautions, added thiamine. I.D. - Dr. Mccrary = EF 56%, IV abx meropenem, cultures (sputum, urine, peritoneal fluid), r/o legionella antigen in urine Podiatry - Dr. Cho = ? Psych - Dr. Doll = ? Reviewed: CXR = RLL infiltrate, atelectasis Bilateral leg doppler = (-) DVT US abd = hepatosplenomegaly w/o focal abnormality, intra-abdominal ascites ECG = ABNORMAL SR w. PAC, R superior axis deviation, pulmonary disease pattern, nonspecific T wave abn <Winsome Mackey - Last Filed: 11/11/17 17:43> Objective - Vital Signs/Intake and Output Vital Signs (last 24 hours): Temp Pulse Resp BP Pulse Ox 97.6 F 83 20 101/38 L 96 11/11/17 16:00 11/11/17 16:00 11/11/17 16:00 11/11/17 16:00 11/11/17 16:00 Intake and Output: 11/11/17 11/11/17 06:59 18:59 Intake Total 780 Balance 780 - Medications Medications: Current Medications Azithromycin (Zithromax) 500 mg PO DAILY [facility] PRN Reason: Protocol Last Admin: 11/11/17 09:22 Dose: 500 mg Betamethasone/Clotrimazole (Lotrisone) 0 gm TOP BID [facility] Last Admin: 11/11/17 17:24 Dose: 1 appful Clonazepam (Klonopin) 0.25 mg PO BID [facility] PRN Reason: Protocol Last Admin: 11/11/17 17:23 Dose: 0.25 mg Folic Acid (Folic Acid) 1 mg PO DAILY [facility] Last Admin: 11/11/17 09:21 Dose: 1 mg Furosemide (Lasix) 40 mg IVP Q12 [facility] Last Admin: 11/11/17 09:24 Dose: 40 mg Gabapentin (Neurontin) 600 mg PO BID [facility] PRN Reason: Protocol Last Admin: 11/11/17 17:23 Dose: 600 mg Home Med (Home Med) 1 unit IH DAILY [facility] Last Admin: 11/11/17 09:23 Dose: 1 unit Home Med (Home Med) 1 unit IH DAILY [facility] Last Admin: 11/11/17 09:23 Dose: 1 unit Home Med (Home Med) 1 unit IH DAILY [facility] Last Admin: 11/11/17 09:23 Dose: 1 unit Hydromorphone HCl (Dilaudid) 0.25 mg IVP Q6H PRN PRN Reason: Pain, severe (8-10) Last Admin: 11/11/17 12:31 Dose: 0.25 mg Meropenem (Merrem Iv 1 Gm Premix) 50 mls @ 100 mls/hr IVPB Q8 [facility] PRN Reason: Protocol Stop: 11/19/17 22:01 Last Admin: 11/11/17 13:59 Dose: 100 mls/hr Methylprednisolone (Solu-Medrol) 30 mg IVP Q12 [facility] Last Admin: 11/11/17 09:22 Dose: 30 mg Quetiapine Fumarate (Seroquel) 100 mg PO HS [facility] PRN Reason: Protocol Thiamine HCl (Vitamin B1 Tab) 100 mg PO DAILY [facility] Last Admin: 11/11/17 09:22 Dose: 100 mg - Labs Labs: 11/10/17 06:40 11/11/17 06:30 PT 16.9 SECONDS (9.4-12.5) H 11/10/17 06:40 INR 1.52 (0.93-1.08) H 11/10/17 06:40 APTT 33.6 Seconds (25.1-36.5) 11/09/17 10:10 Assessment and Plan - Assessment and Plan (Free Text) Plan: pt is seen ang examined at bed side , looking comfortable . agreed all above . no change of status . cont. present treatment , feeling better after paracentesis . sob decrease . will f/u
[2017-11-10] MEDS: Meropenem IV 1 gm in NS 50 ML IVPB SCH (22:22)
--- NOTE | 2017-11-10 23:43 | CP.PCM.CON ---
<Xavier Hunt - Last Filed: 11/10/17 23:36> History of Present Illness - History of Present Illness History of Present Illness: Podiatry Consult Note- Dr. Cho 57 y.o male seen at bedside with attending Dr. Cho for bilaterally leg edema. Patient is known to the podiatry service and to Dr. Cho. Patient is seen resting comfortably in bed, in NAD, and AA0x3. Denies any acute overnight events. Reports SOB. Patient also reports lower leg swelling and redness. Patient denies n/v/cp/chills/f or d. Past Patient History - Infectious Disease Hx of Infectious Diseases: None - Tetanus Immunizations Tetanus Immunization: Unknown - Past Social History Smoking Status: Current Some Days Smoker - CARDIAC Hx Cardiac Disorders: Yes Hx Circulatory Problems: Yes Hx Peripheral Edema: Yes - PULMONARY Hx Respiratory Disorders: Yes Hx Asthma: Yes Hx Chronic Obstructive Pulmonary Disease (COPD): Yes Other/Comment: current smoker - NEUROLOGICAL Hx Neurological Disorder: Yes Other/Comment: neuropathy - HEENT Hx HEENT Problems: Yes (wears eyeglassees) - HEMATOLOGICAL/ONCOLOGICAL Hx Blood Disorders: Yes Hx Anemia: Yes Hx Cirrhosis: Yes - INTEGUMENTARY Hx Dermatological Problems: Yes Other/Comment: muiltiple healed leg wounds ble,GROSS EDEMA,HAS ANASARCA, BILATERAL LE HAS THIN TO THICKENED SKIN FLAKES. EDEMA +4.ABDOMEN HAS ASCITES. - MUSCULOSKELETAL/RHEUMATOLOGICAL Hx Arthritis: Yes Hx Back Pain: Yes Hx Falls: No Hx Herniated Disk: Yes Hx Spinal Stenosis: Yes Hx Unsteady Gait: Yes (cane) - GASTROINTESTINAL Hx Gastrointestinal Disorders: Yes (ascites; no paracentesis in the past) Hx Liver Failure: Yes - GENITOURINARY/GYNECOLOGICAL Hx Genitourinary Disorders: Yes (swollen testicles) - PSYCHIATRIC Hx Psychophysiologic Disorder: Yes Hx Anxiety: Yes Hx Depression: Yes Hx Physical Abuse: No Hx Substance Use: No Other/Comment: ETOH - SURGICAL HISTORY Hx Surgeries: No - ANESTHESIA Hx Anesthesia: No Meds Allergies/Adverse Reactions: Allergies Allergy/AdvReac Type Severity Reaction Status Date / Time No Known Allergies Allergy Verified 11/09/17 13:58 - Medications Medications: Current Medications Azithromycin (Zithromax) 500 mg PO DAILY [facility] PRN Reason: Protocol Last Admin: 12/26/17 09:40 Dose: 500 mg Clonazepam (Klonopin) 0.25 mg PO BID [facility] PRN Reason: Protocol Last Admin: 11/10/17 17:03 Dose: 0.25 mg Folic Acid (Folic Acid) 1 mg PO DAILY [facility] Last Admin: 11/10/17 09:40 Dose: 1 mg Furosemide (Lasix) 40 mg IVP Q12 [facility] Last Admin: 11/10/17 22:15 Dose: 40 mg Gabapentin (Neurontin) 600 mg PO BID [facility] PRN Reason: Protocol Last Admin: 11/10/17 17:03 Dose: 600 mg Home Med (Home Med) 1 unit IH DAILY [facility] Last Admin: 11/10/17 09:41 Dose: 1 unit Home Med (Home Med) 1 unit IH DAILY [facility] Last Admin: 11/10/17 09:41 Dose: 1 unit Home Med (Home Med) 1 unit IH DAILY [facility] Last Admin: 11/10/17 09:41 Dose: 1 unit Hydromorphone HCl (Dilaudid) 0.25 mg IVP Q6H PRN PRN Reason: Pain, severe (8-10) Last Admin: 11/10/17 20:30 Dose: 0.25 mg Meropenem (Merrem Iv 1 Gm Premix) 50 mls @ 100 mls/hr IVPB Q8 [facility] PRN Reason: Protocol Stop: 11/19/17 22:01 Last Admin: 11/10/17 22:22 Dose: 100 mls/hr Methylprednisolone (Solu-Medrol) 30 mg IVP Q12 [facility] Last Admin: 11/10/17 22:21 Dose: 30 mg Quetiapine Fumarate (Seroquel) 200 mg PO DAILY [facility] Last Admin: 11/10/17 09:39 Dose: 200 mg Thiamine HCl (Vitamin B1 Tab) 100 mg PO DAILY [facility] Last Admin: 11/10/17 09:40 Dose: 100 mg Physical Exam - Constitutional Appears: Well, Non-toxic, No Acute Distress - Extremities Exam Additional comments: Vasc: DP and PT 2/4 bilaterally, CFT < 3 seconds to digits, temperature gradient WNL, pitting edema noted to the LE Ortho: tenderness with palpation to the LE, MM is 5/5 in all four compartments: dorsiflexion, plantarflexion, inversion, eversion Neuro: gross and protective sensation diminished Derm: erythema noted to the entire LE bilaterally, xerosis to the LE noted, no open lesions noted, no active drainage, no tunneling, no undermining no probe to bone Elongated, hypertrophic nails x10 with yellow discoloration and subungal debris noted - Neurological Exam Neurological exam: Alert, Oriented x3 - Psychiatric Exam Psychiatric exam: Normal Affect, Normal Mood Results - Vital Signs Recent Vital Signs: Last Vital Signs Temp 98.3 F 11/10/17 16:00 Pulse 98 H 11/10/17 23:06 Resp 20 11/10/17 16:00 BP 120/81 11/10/17 22:15 Pulse Ox 98 11/10/17 16:00 - Labs Result Diagrams: 11/10/17 06:40 11/10/17 06:40 Labs: Laboratory Results - last 24 hr 11/10/17 11/10/17 11/10/17 06:40 06:40 06:40 WBC 5.6 RBC 5.14 Hgb 14.2 Hct 45.7 MCV 88.9 MCH 27.6 MCHC 31.1 RDW 14.4 Plt Count 162 MPV 10.7 PT INR Sodium 142 Potassium 4.7 Chloride 100 Carbon Dioxide 33 Anion Gap 14 BUN 11 Creatinine 0.9 Est GFR ( Amer) > 60 Est GFR (Non-Af Amer) > 60 Random Glucose 134 H Calcium 9.1 Total Bilirubin 1.7 H Direct Bilirubin 0.8 H AST 39 ALT 32 Alkaline Phosphatase 94 NT-Pro-B Natriuret Pep 782 H Total Protein 7.6 Albumin 4.1 Globulin 3.5 Albumin/Globulin Ratio 1.2 Triglycerides 71 Cholesterol 133 LDL Cholesterol Direct 77 HDL Cholesterol 41 Vitamin B12 673 Folate > 20.0 TSH 3rd Generation 3.20 Fluid Source Fluid Appearance Fluid WBC Fluid RBC Fluid Tot Cell Count Fluid Neutrophils Fluid Lymphocytes Fld Monocyte/Macrophag Fluid Comment 11/10/17 11/10/17 06:40 12:20 WBC RBC Hgb Hct MCV MCH MCHC RDW Plt Count MPV PT 16.9 H INR 1.52 H Sodium Potassium Chloride Carbon Dioxide Anion Gap BUN Creatinine Est GFR ( Amer) Est GFR (Non-Af Amer) Random Glucose Calcium Total Bilirubin Direct Bilirubin AST ALT Alkaline Phosphatase NT-Pro-B Natriuret Pep Total Protein Albumin Globulin Albumin/Globulin Ratio Triglycerides Cholesterol LDL Cholesterol Direct HDL Cholesterol Vitamin B12 Folate TSH 3rd Generation Fluid Source Peritoneal Fluid Appearance Sl cloudy Fluid WBC 509.0 H Fluid RBC 2614.0 H Fluid Tot Cell Count 100 H Fluid Neutrophils 8.1 H Fluid Lymphocytes 91.9 H Fld Monocyte/Macrophag TEST NOT PERFORMED Fluid Comment TEST NOT PERFORMED Assessment & Plan - Assessment and Plan (Free Text) Assessment: 57 y.o male wit bilaterally leg erythema with swelling and onychomycosis Plan: Patient examined and evaluated at bedside with attending Dr. Cho Charts, labs, vitals reviewed (afebrile, WBC=5.6 absent leukocytosis) Discussed the plan in detail with attending LE is cleansed with saline solution and pat dry with gauze Lotrisone cream ordered- will apply daily to LE Will debride enlongated, hypertrophic nails tomorrow Podiatry will continue to follow while in house <Aziza Cho - Last Filed: 11/19/17 14:16> Results - Vital Signs Recent Vital Signs: Last Vital Signs Temp 98.5 F 11/17/17 15:51 Pulse 70 11/17/17 15:51 Resp 20 11/17/17 15:51 BP 134/82 11/17/17 15:51 Pulse Ox 96 11/17/17 15:51 - Labs Result Diagrams: 11/17/17 06:20 11/17/17 06:20 Attending/Attestation - Attestation I have personally seen and examined this patient.: Yes I have fully participated in the care of the patient.: Yes I have reviewed all pertinent clinical information: Yes
--- NOTE | 2017-11-11 00:02 | CON ---
DATE: 11/10/2017 Patient is seen on 561, bed 2. CHIEF COMPLAINT: Generalized weakness and shortness of breath and increased abdominal girth. HISTORY OF PRESENT ILLNESS: This is a 57-year-old morbidly obese male with a BMI of 46, history of spinal stenosis, degenerative joint disease, arthritis, disk disease, liver disease, cirrhosis of the liver from alcohol abuse, chronic obstructive lung disease from smoking, peripheral neuropathy, anxiety, depression, anemia who was admitted with shortness of breath. Patient states that he has increased abdominal girth and increased lower extremity edema. He had low grade fevers and occasional chills. He has no chest pain. No hemoptysis. No headaches or blurred vision. PAST MEDICAL HISTORY: Significant for morbid obesity, BMI of 46, spinal stenosis, arthritis, degenerative joint disease, disc disease, liver disease, chronic obstructive lung disease, depression, peripheral neuropathy, anxiety, anemia. PAST SURGICAL HISTORY: Noncontributory. ALLERGIES: PATIENT HAS NO KNOWN ALLERGIES. SOCIAL HISTORY: Patient is an alcohol abuser and smoker. PHYSICAL EXAMINATION: GENERAL: Patient is in bed, appearing uncomfortable due to his very large size. VITAL SIGNS: Temperature of 98, blood pressure is 120/70, respiratory rate of 27, heart rate of 76, it was up to 95 to 101. Blood pressure earlier was 113/50. HEENT: Unremarkable. NECK: Supple. LUNGS: Have decreased breath sounds. HEART: Normal S1, S2. ABDOMEN: Soft, nontender. Examination of the abdomen is distended. EXTREMITIES: Lower extremity edema. Laboratory examination reveals a white count of 6.1, hemoglobin of 14, platelets of 151, coagulation is noted. Chemistries are reviewed. Patient's BUN of 11, creatinine of 0.9 and BNP is 782,. Patient had peritoneal fluid evaluation which had over 509 WBCs and 8% neutrophils, 91% of lymphocytes. Laboratory reveals chest x-ray to be positive for an infiltrate. ASSESSMENT AND PLAN: This is a 57-year-old morbidly obese male with a BMI of 46 with spinal stenosis, arthritis, degenerative joint disease, disc disease, liver disease, depression, anxiety with cirrhosis of the liver, chronic obstructive lung disease, peripheral neuropathy, anemia, presenting with tachycardia, dyspnea. 1. Sepsis with spontaneous bacterial peritonitis with elevated WBCs in the peritoneal fluid with community-acquired pneumonia in a patient who has congestive heart failure with an elevated BNP and edema in a patient with a history of 56% ejection fraction, approximately 2 years ago with acute diastolic congestive heart failure on top of chronic congestive heart failure in this patient. We will treat the patient with meropenem and patient is already on azithromycin. Pending blood culture, urine cultures, sputum culture, urine for Legionella antigen and silverio culture results and because of his age, we will order an HIV test and peritoneal fluid culture and Gram stain pending. We will follow closely with you Raj Mccrary MD
--- NOTE | 2017-11-11 03:01 | CON ---
DATE: 11/10/2017 REASON FOR CONSULTATION: ascites, probably cirrhosis of the liver. HISTORY OF PRESENT ILLNESS: This 57-year-old patient with chronic liver disease and history of active alcohol use, was brought to the hospital for complaints of worsening of shortness of breath for 4 to 5 days. Also noticed to have increased swelling of the legs and abdominal distention. The patient was found to have a large ascites. The patient is admitted for large volume paracentesis, 6500 mL of ascitic fluid drained. The patient is feeling much better now. Denies any bleeding per rectum, vomiting blood. PAST MEDICAL HISTORY: Other past medical history is significant as above, history of cirrhosis, degenerative joint disease, history of inguinal hernias, and history of lower extremity cellulitis. ALLERGIES: NO KNOWN DRUG ALLERGY. SOCIAL HISTORY: Positive for active alcohol use. Positive for smoking. REVIEW OF SYSTEMS: Positive as above. Other systems reviewed negative. PHYSICAL EXAMINATION: GENERAL: The patient is lying on the bed, not in acute distress. VITAL SIGNS: Temperature is 98.3, blood pressure 113/54, pulse 90, and respirations 20. O2 saturation is 98%. HEENT: Atraumatic, anicteric. NECK: Supple. HEART: S1, S2 heard. LUNGS: Bilateral air entry present. ABDOMEN: Soft. There is no mass palpable. The ascites even now is slightly distended. EXTREMITIES: Bilateral edema present. NEUROLOGICAL: Alert, oriented, moves all the extremities. No obvious asterixis noticed. LABORATORY DATA: Hemoglobin 14.2, hematocrit 45.7, WBC 5.6, platelets 162,000. Chemistry showed total bilirubin 1.7, direct bilirubin 0.8, other labs are okay. The patient did have an ultrasound of the abdomen, which showed hepatosplenomegaly with ascites. Gallbladder normal. IMPRESSION: This is a 57-year-old patient with history of active alcohol use admitted with progressive shortness of breath, large ascites, probably decompensated cirrhosis. We would recommend: 1. The patient was strictly advised to avoid alcohol. 2. Would request for abdominal Doppler to evaluate the portal vein. 3. Management of COPD,ANA Pneumonia . Patient on steroid 4. Would also request for iron studies and transferrin saturation to rule out any hemochromatosis in addition would add abdominal Doppler to evaluate the portal vein. 5. We will slowly start the patient on diuretics and optimize and titrate the dose as per the clinical progress. 6. Continue antibiotics as per ID Thank you very much for allowing us to participate in the care of the patient. Cielo Garcias MD [email or web address]
[2017-11-11] MEDS: Meropenem IV 1 gm in NS 50 ML IVPB SCH ×4 (05:22→20:02)
[2017-11-11 07:55] LABS: ALB/GLOB RATIO 1.2 (1.1-1.8); ALT/SGPT 32 U/L (7-56); AST/SGOT 35 U/L (17-59); BLOOD UREA NITROGEN 15 mg/dL (7-21); CALCIUM 8.9 mg/dL (8.4-10.5); GFR AFRICAN-AMERICAN > 60; GFR NON-AFRICAN AMERICAN > 60
[2017-11-11] MEDS: MethylPREDNISolone 40 mg Vial IVP SCH ×3 (09:22→21:15)
[2017-11-11] MEDS: ALBUTEROL SULFATE IH SCH (09:23)
[2017-11-11] MEDS: Fluticasone/Vilanterol [Breo Ellipta 100-25 Mcg Inh] IH SCH (09:23)
[2017-11-11] MEDS: Tiotropium Bromide [Spiriva Respimat] IH SCH (09:23)
[2017-11-11] MEDS: Clotrimazole/Betamethasone Cream(15 gm) TOP SCH ×2 (10:24→17:24)
[2017-11-11] MEDS: HYDROmorphone 0.5 mg/0.5 ml ISec IVP PRN ×2 (12:31→20:37)
--- NOTE | 2017-11-11 18:13 | CP.PCM.PN ---
<Xavier Hunt - Last Filed: 11/11/17 18:10> Subjective - Date & Time of Evaluation Date of Evaluation: 11/11/17 Time of Evaluation: 18:10 - Subjective Subjective: Podiatry Progress Note- Dr. Cho 57 y.o male seen at bedside with attending Dr. Cho for bilaterally leg edema. Patient is seen resting comfortably in bed, in NAD, and AA0x3. Denies any acute overnight events. Patient is seen with compression stocking on at time of visitation. Patient complains of painful elongated nails x 10. Patient denies n/v/cp/chills/f or d. Patient reports the same SOB. Objective - Vital Signs/Intake and Output Vital Signs (last 24 hours): Temp Pulse Resp BP Pulse Ox 97.6 F 83 20 101/38 L 96 11/11/17 16:00 11/11/17 16:00 11/11/17 16:00 11/11/17 16:00 11/11/17 16:00 Intake and Output: 11/11/17 11/11/17 06:59 18:59 Intake Total 780 Balance 780 - Medications Medications: Current Medications Azithromycin (Zithromax) 500 mg PO DAILY [facility] PRN Reason: Protocol Last Admin: 11/11/17 09:22 Dose: 500 mg Betamethasone/Clotrimazole (Lotrisone) 0 gm TOP BID [facility] Last Admin: 11/11/17 17:24 Dose: 1 appful Clonazepam (Klonopin) 0.25 mg PO BID [facility] PRN Reason: Protocol Last Admin: 11/11/17 17:23 Dose: 0.25 mg Folic Acid (Folic Acid) 1 mg PO DAILY [facility] Last Admin: 11/11/17 09:21 Dose: 1 mg Furosemide (Lasix) 40 mg IVP Q12 [facility] Last Admin: 11/11/17 09:24 Dose: 40 mg Gabapentin (Neurontin) 600 mg PO BID [facility] PRN Reason: Protocol Last Admin: 11/11/17 17:23 Dose: 600 mg Home Med (Home Med) 1 unit IH DAILY [facility] Last Admin: 11/11/17 09:23 Dose: 1 unit Home Med (Home Med) 1 unit IH DAILY [facility] Last Admin: 11/11/17 09:23 Dose: 1 unit Home Med (Home Med) 1 unit IH DAILY [facility] Last Admin: 12/27/17 09:23 Dose: 1 unit Hydromorphone HCl (Dilaudid) 0.25 mg IVP Q6H PRN PRN Reason: Pain, severe (8-10) Last Admin: 11/11/17 12:31 Dose: 0.25 mg Meropenem (Merrem Iv 1 Gm Premix) 50 mls @ 100 mls/hr IVPB Q8 [facility] PRN Reason: Protocol Stop: 11/19/17 22:01 Last Admin: 11/11/17 13:59 Dose: 100 mls/hr Methylprednisolone (Solu-Medrol) 30 mg IVP Q12 [facility] Last Admin: 11/11/17 09:22 Dose: 30 mg Quetiapine Fumarate (Seroquel) 100 mg PO HS [facility] PRN Reason: Protocol Thiamine HCl (Vitamin B1 Tab) 100 mg PO DAILY [facility] Last Admin: 11/11/17 09:22 Dose: 100 mg - Labs Labs: 11/10/17 06:40 11/11/17 06:30 PT 16.9 SECONDS (9.4-12.5) H 11/10/17 06:40 INR 1.52 (0.93-1.08) H 11/10/17 06:40 APTT 33.6 Seconds (25.1-36.5) 11/09/17 10:10 - Constitutional Appears: Well, Non-toxic, No Acute Distress - Extremities Exam Additional comments: Vasc: DP and PT 2/4 bilaterally, CFT < 3 seconds to digits, temperature gradient WNL, pitting edema noted to the LE Ortho: tenderness with palpation to the LE, MM is 5/5 in all four compartments: dorsiflexion, plantarflexion, inversion, eversion Neuro: gross and protective sensation diminished Derm: erythema noted to the entire LE bilaterally, has diminished since yesterday, xerosis to the LE noted, no open lesions noted, no active drainage, no tunneling, no undermining no probe to bone Elongated, hypertrophic nails x10 with yellow discoloration and subungal debris noted - Neurological Exam Neurological Exam: Alert, Awake, Oriented x3 - Psychiatric Exam Psychiatric exam: Normal Affect, Normal Mood Assessment and Plan - Assessment and Plan (Free Text) Assessment: 57 y.o male wit bilaterally leg erythema with swelling and onychomycosis Plan: Patient examined and evaluated at bedside with attending Dr. Cho Charts, labs, vitals reviewed (afebrile, WBC=5.6 on 11/10/17 absent leukocytosis ) Discussed the plan in detail with attending LE is cleansed with saline solution and pat dry with gauze Lotrisone cream ordered- will apply daily to LE Patient's enlongated, mycotic dystrophic nails x10 were sharply debrided to normal thickness and length with a nail nipper without incident. Patient tolerated the procedure well. Podiatry will continue to follow while in house <Aziza Cho - Last Filed: 11/19/17 14:17> Objective - Vital Signs/Intake and Output Vital Signs (last 24 hours): Temp Pulse Resp BP Pulse Ox 98.5 F 70 20 134/82 96 11/17/17 15:51 11/17/17 15:51 11/17/17 15:51 11/17/17 15:51 11/17/17 15:51 - Labs Labs: 11/17/17 06:20 11/17/17 06:20 PT 16.9 SECONDS (9.4-12.5) H 11/10/17 06:40 INR 1.52 (0.93-1.08) H 11/10/17 06:40 APTT 33.6 Seconds (25.1-36.5) 11/09/17 10:10 Attending/Attestation - Attestation I have personally seen and examined this patient.: Yes I have fully participated in the care of the patient.: Yes I have reviewed all pertinent clinical information, including history, physical exam and plan: Yes
--- NOTE | 2017-11-11 19:15 | PN ---
PULMONARY PROGRESS NOTE DATE: 11/11/2017 REFERRING PHYSICIAN: Winsome Mackey MD SUBJECTIVE: He is lying in the bed. Night was unremarkable. Tolerated BiPAP well. Still has some cough and shortness of breath. No nausea. No vomiting. No diarrhea. Has a leg swelling. OBJECTIVE: GENERAL: In no acute distress. VITAL SIGNS: Temperature is 98, heart is 84, respiratory rate is 22, blood pressure is 122/74, and pulse ox is 96% on room air. HEENT: Moist mucous membrane. Crowded airway. Mallampati score is IV. NECK: Supple. No JVD. LUNGS: Has a scattered rhonchi. HEART: S1 and S2. ABDOMEN: Soft and nontender. EXTREMITIES: Still has edema and erythema. NEUROLOGIC: Awake and alert and follows simple commands. MEDICATIONS: He is on Dilaudid 0.25 mg IV q.6 hours p.r.n., folic acid 1 mg daily, he is also on Klonopin 0.25 mg twice a day, Lasix 40 mg twice a day, Lotrisone affected area twice a day, meropenem 1 g IV q.8 hours, Neurontin 600 mg twice a day, Seroquel 100 mg at bedtime, Solu-Medrol 30 mg q.12 hours, vitamin B1 100 mg daily, and Zithromax 500 mg daily. LABORATORY DATA: Shows sodium 143, potassium 4.1, chloride 102, and bicarbonate 30. BUN 15, creatinine is 0.8, glucose 138, calcium is 8.9, AST 35, ALT 32, alk phos is 88, and albumin is 4.0. IMPRESSION AND PLAN: Pneumonia, morbid obesity, sleep apnea syndrome, cirrhotic liver, ascites, obstructive pulmonary disease, pulmonary hypertension, anxiety disorder, depression, history of suicidal ideation in the past, and large ascites, status post volume paracentesis. Pulmonary point of view, doing well. Continue antibiotics and bronchodilator. Keep head at 45 degrees, BiPAP use, gastric prophylaxis, deep venous thrombosis prophylaxis, out of bed to chair, fall precaution, and follow up labs in the morning. Thank you and we will follow with you. Juan Marie MD
[2017-11-11] MEDS ORDERED: HYDROmorphone 0.5 mg/0.5 ml ISec IVP PRN (21:48)
--- NOTE | 2017-11-11 22:28 | PN ---
DATE: 11/11/2017 SUBJECTIVE: This patient was seen and evaluated earlier today. Appears much more comfortable. PHYSICAL EXAMINATION: VITAL SIGNS: Temperature is 97.6, pulse 83, blood pressure is 101/38, respirations 20. HEENT: Atraumatic. Anicteric. NECK: Supple. HEART: S1 and S2 heard. LUNGS: Bilateral air entry present. ABDOMEN: Soft, probably distended. EXTREMITIES: Edema present. NEUROLOGICAL: Alert, moves all the extremities. LABORATORY DATA: Electrolytes shows sodium 143, potassium 4.1, creatinine is 0.8. IMPRESSION: This 57-year-old patient with decompensated cirrhosis; ascites, status post large volume paracentesis. The patient has predominantly lymphocytosis in the ascitic fluid. His LFTs have improved. His hepatitis serologies done in the past was negative. The CHAITANYA screening was negative and autoimmune markers like antimitochondrial antibody and antismooth muscle antibodies were all negative. PLAN: We would recommend to start the patient on low dose Aldactone. The patient also would benefit from diuretics, Lasix. We will continue to closely follow up his care and suggest further management based on the clinical course. The patient's was at the bedside. The patient's family was at the bedside, they were strictly advised to avoid alcohol. Thank you very much for allowing us to participate in the care of the patient. Ceilo Garcias MD
--- NOTE | 2017-11-11 23:25 | PN ---
DATE: 11/11/2017 SUBJECTIVE: The patient is seen early this morning in room 561, bed 2. No fevers reported, uneventful night. PHYSICAL EXAMINATION VITAL SIGNS: Temperature of 97, blood pressure is 120/70 and respiratory rate of 22. HEENT: Unremarkable. NECK: Supple. LUNGS: Have decreased breath sounds. HEART: Normal S1 and S2. ABDOMEN: Soft, distended and mild tenderness. No rebound or guarding. LABORATORY EXAMINATION: Reveals a white count of 6.1, hemoglobin of 14 and platelets of 162. BUN of 15 and creatinine of 0.8. Urinalysis is noted. Peritoneal fluid shows 509 wbc's. HIV is nonreactive. Urine for Legionella antigen is negative. Microbiology reveals the peritoneal cultures have no growth and no organisms seen on the Gram stain. Sputum culture is pending. ASSESSMENT AND PLAN: A 57-year-old with morbid obesity with body mass index of 46, spinal stenosis, arthritis, degenerative joint disease, disk disease, liver disease, depression, anxiety, cirrhosis of the liver, chronic obstructive lung disease, peripheral neuropathy, anemia presenting with tachycardia and dyspnea: 1. Sepsis with spontaneous bacterial peritonitis with elevated wbc's in the peritoneal fluid associated with community-acquired pneumonia. The patient has congestive heart failure, elevated BNP and edema, and 56% ejection fraction approximately 2 years ago with acute diastolic congestive heart failure on top of chronic congestive heart failure. Currently on meropenem and Zithromax, day #2. We will follow closely with you. Raj Mccrary MD
--- NOTE | 2017-11-12 03:11 | PN ---
DATE: SUBJECTIVE: The patient is seen and examined at the bedside, looking comfortable. Night was unremarkable , tolerating BiPAP very well, status post paracentesis. Cough and shortness of breath is better, complaining about insomnia. No nausea, vomiting or diarrhea. Swelling of leg is better. No headache. No dizziness. PHYSICAL EXAMINATION VITAL SIGNS: Temperature 98, heart rate 84, respiratory rate 22, blood pressure 120/74, pulse oximetry 96% on room air. HEENT: Head: Normocephalic, atraumatic. Eyes: PERRLA. Extraocular muscles intact. Conjunctivae clear. Nose patent. Mucous membranes moist. NECK: Supple. No carotid bruits. No JVD or thyromegaly. LUNGS: Have scattered rhonchi. HEART: S1 and S2 positive. ABDOMEN: Soft, nontender. No organomegaly. EXTREMITIES: Still has trace edema, erythema and massive stasis dermatitis. NEUROLOGIC: The patient is awake and alert, follows simple command. MEDICATIONS: Dilaudid, folic acid, Klonopin, Lasix, Lotrisone, meropenem, Neurontin, Seroquel, Solu-Medrol, vitamins, Zithromax. LABORATORY DATA: Sodium 143, potassium 4.1, BUN 15, creatinine 0.8, glucose 138. AST 35, ALT 32, albumin of 4.0. ASSESSMENT AND PLAN: Mr. Dilan Liang is a 57-year-old male with pneumonia, morbid obesity, ascites, sleep apnea syndrome, cirrhotic liver, obstructive pulmonary disease, pulmonary hypertension, anxiety, depression, history of suicidal ideation in the past, large ascites. Dive Supervisor is on the case. Continue antibiotics, bronchodilators. History of ethanol abuse, urged to quit drinking. Gastric prophylaxis and deep venous thrombosis prophylaxis, out of bed, physical therapy. We will follow. Winsome Mackey MD MTDD
[2017-11-12] MEDS: Meropenem IV 1 gm in NS 50 ML IVPB SCH ×3 (06:43→21:12)
--- NOTE | 2017-11-12 08:15 | CON ---
DATE: 11/11/2017 He is being seen today for a consultation. PRESENTATION: The patient is a 57-year-old male, appearing older than his stated age. He is seen at the side of his hospital bed. He is very sedated. He is lying on his side. He has large abdominal ascites. He was admitted due to increasing girth, difficulty breathing, and lower extremity swelling. He continues to be dealing with this while in the hospital. He has a history of alcoholism. The patient indicates that he is uncomfortable currently physically. If he is very sedated, he evidently sees Dr. Frias privately for the last 2 years. He has been hospitalized one time on the Psychiatric Unit here at [facility] and Dr. Frias was his doctor at that time, so we continued with him afterwards. He indicated, he was on Klonopin and Seroquel from him and he has been well maintained in his opinion since then and he plans to continue with Dr. Frias. He was not pleased on her psychiatric consult indicates that he does not need that, he has good followup. He only sees Dr. Frias for management. He does not see anyone for therapy. He indicates, he is not depressed and has no other problems. 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 He has been having difficulty working due to bad back. He lives with his for 30 years and he indicates his marriage is stable, though, his is upset with him because she feels like his current medical condition is due to the fact that he was drinking a lot around the holidays. He has been an alcoholic. He indicated since he was 16 or 17 years old, he drinks at least 6 beers daily for the last 20 years. He denies any history of blackout, seizures, or DWIs. He denies any legal history, ever being to any drug or alcohol rehab. He has never used any illicit drugs, and he indicates few weeks ago but then he reiterates that he did have some drinks over the holiday last week. MENTAL STATUS EXAM: The patient is arousable and semi alert, though he is sluggish. He is oriented x3. He indicates, he likes the feeling of being sedated, then he feels like he is not crawling up the [place] and this is a good thing while he is in the hospital. His mood is blunted. His affect is constricted. He denies being suicidal or homicidal. Denies the presence of hallucinations, delusions, or paranoia. His focus and concentration appears to be adequate. His memory, both short and residential has some deficits. His appetite and his sleep, he indications are normal. DIAGNOSTIC IMPRESSION: Mood disorder unspecified, alcohol use disorder, chronic ongoing peripheral edema, asthma, chronic obstructive pulmonary disease, peripheral neuropathy, anemia, cirrhosis of the liver, multiple leg wounds, arthritis, back pain, herniated disk, morbid obesity, spinal stenosis, status post paracentesis yesterday. Current vital signs include temperature of 97.6, pulse rate of 83, blood pressure 101/38, respirations of 20 with an O2 saturation of 96. Review of cultures indicate at this point, no growth in blood cultures, body fluid culture, and sputum at this time. PLAN: The patient indicates that he is stable, does not want any psychiatric followup. MEDICATIONS: His current medications are Zithromax, Lotrisone, Klonopin 0.25 mg b.i.d., folic acid, furosemide, gabapentin 600 mg one p.o. b.i.d., Dilaudid, Seroquel 200 mg one daily. Seroquel traditionally is better given in the evening because it has a high sedative value; this patient is pretty sedated during the day and he is already unsteady on his feet, probably better idea would be to lower the dose from 200 mg daily to 100 mg one at bedtime which was done. Please call if there are any further problems or concerns of this patient. Beena Cabrera APN Bryan Wyatt MD MTD[place]
[2017-11-12] MEDS: MethylPREDNISolone 40 mg Vial IVP SCH ×2 (09:38→21:13)
--- NOTE | 2017-11-12 10:53 | CP.PCM.PN ---
Subjective - Date & Time of Evaluation Date of Evaluation: 11/12/17 Time of Evaluation: 10:49 - Subjective Subjective: Podiatry Progress Note- Dr. Cho 57 y.o male seen and evaluated at bedside with attending Dr. Cho for bilaterally leg edema. Patient is seen resting comfortably in bed, in NAD, and AA0x3. Patient is seen without compression stockings on during visitation. 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 Patient denies any overnight acute events. Patient mentions upper right thigh pain. He describes the pain as numbness and tingling with intermittent shotting. Patient denies n/v/cp/chills/f or d. Patient reports the same SOB. Objective - Vital Signs/Intake and Output Vital Signs (last 24 hours): Temp Pulse Resp BP Pulse Ox 97.8 F 62 25 H 122/83 99 11/12/17 07:30 11/12/17 07:30 11/12/17 07:30 11/12/17 07:30 11/12/17 07:30 Intake and Output: 11/12/17 11/12/17 06:59 18:59 Intake Total 1050 Balance 1050 - Medications Medications: Current Medications Azithromycin (Zithromax) 500 mg PO DAILY [facility] PRN Reason: Protocol Last Admin: 11/12/17 09:38 Dose: 500 mg Betamethasone/Clotrimazole (Lotrisone) 0 gm TOP BID [facility] Last Admin: 11/11/17 17:24 Dose: 1 appful Clonazepam (Klonopin) 0.25 mg PO BID [facility] PRN Reason: Protocol Last Admin: 11/12/17 09:39 Dose: 0.25 mg Folic Acid (Folic Acid) 1 mg PO DAILY [facility] Last Admin: 11/12/17 09:40 Dose: 1 mg Furosemide (Lasix) 40 mg IVP Q12H [facility] Last Admin: 11/12/17 06:44 Dose: 40 mg Gabapentin (Neurontin) 600 mg PO BID [facility] PRN Reason: Protocol Last Admin: 11/12/17 09:40 Dose: 600 mg Home Med (Home Med) 1 unit IH DAILY [facility] Last Admin: 11/11/17 09:23 Dose: 1 unit Home Med (Home Med) 1 unit IH DAILY [facility] Last Admin: 11/11/17 09:23 Dose: 1 unit Home Med (Home Med) 1 unit IH DAILY [facility] Last Admin: 11/11/17 09:23 Dose: 1 unit Hydromorphone HCl (Dilaudid) 0.25 mg IVP BID PRN PRN Reason: Pain, severe (8-10) Last Admin: 11/12/17 09:37 Dose: 0.25 mg Meropenem (Merrem Iv 1 Gm Premix) 50 mls @ 100 mls/hr IVPB Q8 [facility] PRN Reason: Protocol Stop: 11/19/17 22:01 Last Admin: 11/12/17 06:43 Dose: 100 mls/hr Lactic Acid (Lac-Hydrin 12% Lotion (225 G)) 0 gm EXT DAILY [facility] Methylprednisolone (Solu-Medrol) 20 mg IVP Q12 [facility] Last Admin: 11/12/17 09:38 Dose: 20 mg Quetiapine Fumarate (Seroquel) 100 mg PO HS [facility] PRN Reason: Protocol Spironolactone (Aldactone) 50 mg PO DAILY [facility] Last Admin: 11/12/17 09:40 Dose: 50 mg Thiamine HCl (Vitamin B1 Tab) 100 mg PO DAILY [facility] Last Admin: 11/12/17 09:39 Dose: 100 mg - Labs Labs: 11/10/17 06:40 11/11/17 06:30 PT 16.9 SECONDS (9.4-12.5) H 11/10/17 06:40 INR 1.52 (0.93-1.08) H 11/10/17 06:40 APTT 33.6 Seconds (25.1-36.5) 11/09/17 10:10 - Constitutional Appears: Well, Non-toxic, No Acute Distress - Extremities Exam Additional comments: Vasc: DP and PT 2/4 bilaterally, CFT < 3 seconds to digits, temperature gradient WNL, pitting edema noted to the LE Ortho: tenderness with palpation to the LE, MM is 5/5 in all four compartments: dorsiflexion, plantarflexion, inversion, eversion Neuro: gross and protective sensation diminished Derm: erythema noted to the entire LE bilaterally, has diminished since yesterday, xerosis to the LE noted, no open lesions noted, no active drainage, no tunneling, no undermining no probe to bone, no open lesions to the LE - Neurological Exam Neurological Exam: Alert, Awake, Oriented x3 - Psychiatric Exam Psychiatric exam: Normal Affect, Normal Mood
[2017-11-12] MEDS: Ammonium Lactate 12% Lotion (225 g) EXT SCH (12:09)
[2017-11-12] MEDS: Fluticasone/Vilanterol [Breo Ellipta 100-25 Mcg Inh] IH SCH (12:11)
[2017-11-12] MEDS: ALBUTEROL SULFATE IH SCH (12:11)
[2017-11-12] MEDS: Tiotropium Bromide [Spiriva Respimat] IH SCH (12:11)
[2017-11-12] MEDS: Clotrimazole/Betamethasone Cream(15 gm) TOP SCH (13:28)
[2017-11-12] MEDS: oxyCODONE 10 mg Immediate Release Tab PO PRN ×2 (14:39→21:12)
--- NOTE | 2017-11-12 18:55 | PN ---
DATE: 11/12/2017 SUBJECTIVE: The patient is in bed in no acute distress, nontoxic. OBJECTIVE: VITAL SIGNS: Temperature is 97, blood pressure is 120/70, respiratory rate is 22, and heart rate of 102. HEENT: Unremarkable. NECK: Supple. LUNGS: Have decreased breath sounds. HEART: Normal S1 and S2. ABDOMEN: Soft and nontender. LABORATORY DATA: Reveals the peritoneal fluid cultures are negative. Blood cultures are negative. Sputum cultures are pending. White count of 5.6, BUN of 15, and creatinine of 0.8. The patient's coagulation reveals the patient's INR is 1.52. The patient had Dopplers of lower extremities are negative for DVT in both lower extremities. ASSESSMENT AND PLAN: This is a 57-year-old male with morbid obesity, body mass index of 46, spinal stenosis, arthritis, degenerative joint disease, disk disease, liver disease, depression, anxiety, cirrhosis of the liver, chronic obstructive lung disease, peripheral neuropathy, and anemia, presenting on this admission: 1. Sepsis with spontaneous bacterial peritonitis with over 500 WBCs in the peritoneal fluid and associated with a community-acquired pneumonia, congestive heart failure and with acute diastolic congestive heart failure on top of chronic congestive heart failure, on meropenem and Zithromax day #3. Meropenem is active and azithromycin. Raj Mccrary MD
--- NOTE | 2017-11-12 18:59 | CON ---
DATE: 11/12/2017 NEUROLOGY CONSULTATION CHIEF COMPLAINT: Right thigh burning pain and numbness and tingling. HISTORY OF PRESENT ILLNESS: This is a 57-year-old man with past medical history of COPD, history of respiratory failure in the past, chronic leg edema, history of peripheral neuropathy, anemia, cirrhotic liver, ascites, degenerative joint disease, herniated disks, spinal stenosis, history of left paracentesis of the liver, and history of scrotal edema, who presents with shortness of breath, cough, leg swelling, and bilateral lower extremity edema which is being treated, was consulted due to right thigh lateral aspect burning pain and numbness and tingling. He mentioned that after he stretched one day he started to develop this right thigh numbness and tingling and small burning pain. Currently, he is walking around without any difficulty. He is on gabapentin 600 mg p.o. b.i.d. and Klonopin for anxiety. PAST MEDICAL HISTORY: History of sleep apnea, cirrhotic liver with ascites, obstructive pulmonary disease, pulmonary hypertension, anxiety, depression, bilateral chronic lower extremity edema. SOCIAL HISTORY: No illicit drug use, smoking, or EtOH use at this time. ALLERGIES: NO KNOWN DRUG ALLERGIES. MEDICATIONS: Reviewed by nurse's reconciliation sheet. REVIEW OF SYSTEMS: A 14-point review of systems is negative except as in the HPI. PHYSICAL EXAMINATION GENERAL: The patient is sitting up in bed, in no acute distress. VITAL SIGNS: Temperature 97.8, pulse rate , blood pressure 122/83, respiratory rate of 22 and oxygen saturation of 99% by room air. HEENT: Head is atraumatic and normocephalic. PERRLA. Extraocular muscles intact. NECK: Supple. No JVD. No adenopathy noted. LUNGS: Decreased breath sounds bilaterally. ABDOMEN: Soft, nontender and nondistended. Bowel sounds are present. EXTREMITIES: Trace edema in the lower extremities and stasis dermatitis in the lower extremities as well. NEUROLOGIC: The patient is alert and oriented to time, person, place, month and year. Speech is fluent without any errors. Cranial nerves II through XII are intact. Poor attention span and slow thought process. Flat affect. Motor exam: Moves all extremities equally. No pronator drift seen. Sensory exam: Decreased light touch, pinprick, and proprioception up to the calves bilaterally. Decreased vibration of the toes and knees. DTRs are 2+ throughout, 1 at both knees and absent at the ankles. Coordination: Kmeynj-bv-iiio intact. Gait is slightly wide based. LABORATORY DATA: Sodium 143, potassium 4.1, chloride of 102, carbon dioxide of 30, BUN of 15, creatinine 0.8, random glucose of 138. ASSESSMENT AND PLAN: This is a 57-year-old man with past medical history of morbid obesity, pneumonia, ascites, sleep apnea syndrome, cirrhotic liver, obstructive pulmonary disease, pulmonary hypertension, anxiety, depression, and history of suicidal ideation, who came in for shortness of breath and bilateral worsening lower extremity edema, which is being evaluated, was consulted for right thigh burning pain with some paresthesia in the right thigh area, and he mentioned that it happened after he did extreme stretching over a week ago. At this time, his right thigh paresthesia and pain is likely secondary to right meralgia paresthetica which is affecting the lateral femoral cutaneous nerve of the thigh. At this time, recommend: 1. Continue with gabapentin 600 mg p.o. b.i.d. and we will add Cymbalta 20 mg p.o. at bedtime for neuropathic relief. 2. Will need physical therapy, likely subacute rehab in terms of hamstring stretching as well as thigh exercises to relieve pressure over the lateral femoral cutaneous nerve and therapeutic exercises. 3. Continue with management for underlying COPD and bilateral chronic lower extremity edema. 4. Continue to monitor electrolytes and correct accordingly. Once again, thank you for this consult. Dav Marte MD
--- NOTE | 2017-11-12 21:44 | PN ---
DATE: The patient is 57-year-old male. SUBJECTIVE: The patient is seen and examined at the bedside. Looking comfortable. No nausea, vomiting, or diarrhea. No hematuria or hematochezia. No fever. No chills. Still having big abdomen and complaining about back pain and sciatica. PHYSICAL EXAMINATION: VITAL SIGNS: Temperature 97.8, pulse 62, blood pressure 123/85, and respiratory rate is 25. HEENT: Head normocephalic and atraumatic. Eyes: PERRLA. Extraocular muscles intact. Conjunctivae clear. Nose patent. Mucous membranes are moist. NECK: Supple. No carotid bruits, no JVD or thyromegaly. CHEST: Bilaterally symmetrical. HEART: S1 and S2 positive. LUNGS: Clear to auscultation. ABDOMEN: Soft. Bowel sounds positive. No organomegaly. EXTREMITIES: Trace edema and redness. Podiatry is on the case. NEUROLOGIC: The patient is awake and alert. Moving all four extremities. No focal deficits. MEDICATIONS: Aldactone, Cymbalta, folic acid, Klonopin, lactic acid, Lasix, Lotrisone, meropenem, Neurontin, oxycodone, Seroquel, methylprednisolone, thiamine, Zithromax. LABORATORY DATA: White blood cell 5.3, hemoglobin 14.2, hematocrit 45.7, and platelets 152. Sodium 143, potassium 4.1, BUN 15, creatinine 0.8, glucose 138. ASSESSMENT AND PLAN: Mr. Dilan Liang is a 57-year-old male with hyperglycemia, abnormal liver function test, cellulitis of the leg, history of stasis dermatitis, ascites, status post paracentesis, cirrhosis of the liver, comorbid obesity, body mass index is 46, spinal stenosis, arthritis, degenerative joint disease, disc disease, depression, anxiety, chronic obstructive lung disease, peripheral neuropathy, sepsis, shortness of breath, bacterial peritonitis with over 500 white blood cells in the peritoneal fluid and associated with community-acquired pneumonia, acute diastolic congestive heart failure on the top of chronic congestive heart failure, on meropenem and Zithromax, before meropenem is active and azithromycin.. I reviewed Dr. Mccrary's notes, appreciate it. Seen by Dr. Dav Marte and Dr. Marie also. History of sleep apnea. Pulmonary hypertension. We will continue gabapentin, Cymbalta at bedtime for peripheral neuropathy. The patient needs physical therapy, needs subacute rehab in terms of hamstring strengthening as well as high exercise relieve pressure over the lateral femoral cutaneous nerve and therapeutic exercises. Continue treatment of chronic obstructive pulmonary disease. Gastrointestinal and deep vein thrombosis prophylaxis. Repeat labs. We will follow up. Winsome Mackey MD
--- NOTE | 2017-11-13 00:15 | PN ---
DATE: 11/12/2017 REFERRING PHYSICIAN: Dr. Mackey. SUBJECTIVE: He is ambulating in the room, still every night has cough and sputum production. No nausea. No vomiting. No diarrhea. Decreased abdominal girth. Decreased leg swelling, has some erythema. PHYSICAL EXAMINATION: GENERAL: In no acute distress. VITAL SIGNS: Temperature 98, heart rate 62, respiratory rate is 22, blood pressure 123/85, pulse ox 99% on room air. HEENT: Moist mucous membranes. Crowded airway. NECK: Supple. No JVD. LUNGS: Has scattered rhonchi. HEART: S1 and S2. ABDOMEN: Soft, still distended, has ascites. EXTREMITIES: Decreased edema, still has some erythema. NEUROLOGIC: Awake, alert, follow simple commands. MEDICATIONS: Aldactone 50 mg daily, Cymbalta 50 mg daily, folic acid 1 mg daily, Klonopin is 0.25 mg twice a day, Lasix 40 mg q. 12 hours, Lotrisone to affected area twice a day, meropenem 1 g IV q. 8 hours, Neurontin 600 mg twice a day, nasal saline each nostril, oxycodone immediate release 10 mg q. 6 hours p.r.n., Seroquel 100 mg at bedtime, Solu-Medrol 20 mg q. 12 hours, vitamin D 100 mg daily, Zithromax 500 mg daily. LABORATORY DATA: Reviewed. No new lab is available since yesterday. IMPRESSION AND PLAN: Morbid obesity, sleep apnea syndrome, chronic liver disease, ascites, obstructive pulmonary disease, pulmonary hypertension, anxiety disorder, depression, history of suicidal ideation in the remote past, large ascites, lumbar radiculopathy, status post volume paracentesis, still have cough and shortness of breath. Continue antibiotics. Keep head at 45 degrees. Add Singulair 10 mg daily, fall precaution, continue diuretics. Follow up in the morning. Thank you and we will follow with you. Juan Marie MD
--- NOTE | 2017-11-13 00:30 | PN ---
DATE: 11/12/2017 SUBJECTIVE: This patient was seen and evaluated earlier today. PHYSICAL EXAMINATION: VITAL SIGNS: Temperature is 97.8, pulse 62 and blood pressure 123/85. HEENT: Atraumatic. Anicteric. NECK: Supple. HEART: S1 and S2 heard. LUNGS: Bilateral air entry present. ABDOMEN: Distended. EXTREMITIES: Edema present. IMPRESSION AND PLAN: This 57-year-old patient with cirrhosis probably secondary to alcohol use, decompensated, has status post large volume paracentesis about 6.5 L of fluid removed. The patient has been on Lasix iv 40 mg b.i.d. The patient is being started also on Aldactone 50 mg daily. The patient has paracentesis ascitic fluid has relave lymphocytosis. We will recommend to follow up the electrolytes. The patient was strictly advised to avoid alcohol. Thank you very much for allowing us to participate in the care of the patient. Cielo Garcias MD [facility]
[2017-11-13] MEDS: Meropenem IV 1 gm in NS 50 ML IVPB SCH (06:05)
[2017-11-13 07:30] LABS: ALB/GLOB RATIO 1.2 (1.1-1.8); ALBUMIN 4.3 g/dL (3.0-4.8); ALT/SGPT 54 U/L (7-56); AST/SGOT 63 U/L (17-59); BLOOD UREA NITROGEN 19 mg/dL (7-21); CALCIUM 8.9 mg/dL (8.4-10.5); GFR AFRICAN-AMERICAN > 60; GFR NON-AFRICAN AMERICAN > 60
[2017-11-13] MEDS: Ammonium Lactate 12% Lotion (225 g) EXT SCH (10:08)
[2017-11-13] MEDS: Tiotropium Bromide [Spiriva Respimat] IH SCH (10:09)
[2017-11-13] MEDS: Fluticasone/Vilanterol [Breo Ellipta 100-25 Mcg Inh] IH SCH (10:10)
[2017-11-13] MEDS: MethylPREDNISolone 40 mg Vial IVP SCH ×2 (10:15→21:11)
[2017-11-13] MEDS: oxyCODONE 10 mg Immediate Release Tab PO PRN ×3 (10:32→23:15)
[2017-11-13] MEDS: ALBUTEROL SULFATE IH SCH (10:46)
[2017-11-13] MEDS: Clotrimazole/Betamethasone Cream(15 gm) TOP SCH (10:46)
--- NOTE | 2017-11-13 11:36 | CP.PCM.PN ---
<Xavier Hunt - Last Filed: 11/13/17 11:31> Subjective - Date & Time of Evaluation Date of Evaluation: 11/13/17 Time of Evaluation: 11:31 - Subjective Subjective: Podiatry Progress Note- Dr. Cho/ 57 y.o male seen and evaluated at bedside for lower extremity edema and erythema. Patient is seen resting comfortably in bed, in NAD, and AA0x3. Patient denies any acute overnight events. Patient denies n/v/cp/chills/f or d. Patient reports SOB which he reports improves. No pedal complaints at this time. Objective - Vital Signs/Intake and Output Vital Signs (last 24 hours): Temp Pulse Resp BP Pulse Ox 97.8 F 74 18 151/78 H 95 11/13/17 07:30 11/13/17 07:30 11/13/17 07:30 11/13/17 07:30 11/13/17 07:30 Intake and Output: 11/13/17 11/13/17 06:59 18:59 Intake Total 1020 Balance 1020 - Medications Medications: Current Medications Azithromycin (Zithromax) 500 mg PO DAILY [facility] PRN Reason: Protocol Last Admin: 11/13/17 10:07 Dose: 500 mg Betamethasone/Clotrimazole (Lotrisone) 0 gm TOP BID [facility] Last Admin: 11/13/17 10:46 Dose: 1 appful Clonazepam (Klonopin) 0.25 mg PO BID [facility] PRN Reason: Protocol Last Admin: 11/13/17 10:08 Dose: 0.25 mg Duloxetine HCl (Cymbalta) 20 mg PO HS [facility] Last Admin: 11/12/17 21:12 Dose: 20 mg Folic Acid (Folic Acid) 1 mg PO DAILY [facility] Last Admin: 11/13/17 10:08 Dose: 1 mg Furosemide (Lasix) 40 mg IVP Q12H [facility] Last Admin: 11/13/17 06:04 Dose: 40 mg Gabapentin (Neurontin) 600 mg PO BID [facility] PRN Reason: Protocol Last Admin: 11/13/17 10:07 Dose: 600 mg Home Med (Home Med) 1 unit IH DAILY [facility] Last Admin: 11/13/17 10:46 Dose: 1 unit Home Med (Home Med) 1 unit IH DAILY [facility] Last Admin: 11/13/17 10:10 Dose: 1 unit Home Med (Home Med) 1 unit IH DAILY [facility] Last Admin: 11/13/17 10:09 Dose: Not Given Meropenem 1 gm/ Sodium (Chloride) 100 mls @ 100 mls/hr IVPB Q8 [facility] Stop: 11/19/17 22:01 Lactic Acid (Lac-Hydrin 12% Lotion (225 G)) 0 gm EXT DAILY [facility] Last Admin: 11/13/17 10:08 Dose: 1 unit Methylprednisolone (Solu-Medrol) 20 mg IVP Q12 [facility] Last Admin: 11/13/17 10:15 Dose: 20 mg Oxycodone HCl (Oxycodone Immediate Release Tab) 10 mg PO Q6H PRN PRN Reason: Pain, severe (8-10) Last Admin: 11/13/17 10:32 Dose: 10 mg Quetiapine Fumarate (Seroquel) 100 mg PO HS [facility] PRN Reason: Protocol Last Admin: 11/12/17 21:13 Dose: 100 mg Sodium Chloride ([place] Nasal [place]) 0 ml NS DAILY PRN PRN Reason: Nasal congestion Last Admin: 11/12/17 14:49 Dose: 1 sprays Spironolactone (Aldactone) 50 mg PO DAILY [facility] Last Admin: 11/13/17 10:08 Dose: 50 mg Thiamine HCl (Vitamin B1 Tab) 100 mg PO DAILY [facility] Last Admin: 11/13/17 10:08 Dose: 100 mg - Labs Labs: 11/10/17 06:40 11/13/17 06:30 PT 16.9 SECONDS (9.4-12.5) H 11/10/17 06:40 INR 1.52 (0.93-1.08) H 11/10/17 06:40 APTT 33.6 Seconds (25.1-36.5) 11/09/17 10:10 - Constitutional Appears: Well, Non-toxic, No Acute Distress - Extremities Exam Additional comments: Vasc: DP and PT 2/4 bilaterally, CFT < 3 seconds to digits, temperature gradient WNL, pitting edema noted to the LE Ortho: tenderness with palpation to the LE, MM is 5/5 in all four compartments: dorsiflexion, plantarflexion, inversion, eversion Neuro: gross and protective sensation diminished Derm: erythema noted to the entire LE bilaterally, has diminished since yesterday, xerosis to the LE noted, no open lesions noted, no active drainage, no tunneling, no undermining no probe to bone, no open lesions to the LE - Neurological Exam Neurological Exam: Alert, Awake, Oriented x3 - Psychiatric Exam Psychiatric exam: Normal Affect, Normal Mood Assessment and Plan - Assessment and Plan (Free Text) Assessment: 57 y.o male wit bilaterally lower extremity edema with redness Plan: Patient examined and evaluated at bedside with attending Dr. Thomas Charts, labs, vitals reviewed (afebrile, WBC=5.6 on 11/10/17 absent leukocytosis ) Discussed the plan in detail with attending Lotrisone cream applied to LE, followed by Dimethicone Skin Protectant Podiatry will continue to follow while in house <Kannan Thomas - Last Filed: 11/14/17 08:41> Objective - Vital Signs/Intake and Output Vital Signs (last 24 hours): Temp Pulse Resp BP Pulse Ox 97.8 F 68 17 121/80 97 11/14/17 08:13 11/14/17 08:13 11/14/17 08:13 11/14/17 08:13 11/14/17 08:13 Intake and Output: 11/14/17 11/14/17 06:59 18:59 Intake Total 240 Balance 240 - Medications Medications: Current Medications Azithromycin (Zithromax) 500 mg PO DAILY [facility] PRN Reason: Protocol Last Admin: 11/13/17 10:07 Dose: 500 mg Betamethasone/Clotrimazole (Lotrisone) 0 gm TOP BID [facility] Last Admin: 11/13/17 10:46 Dose: 1 appful Clonazepam (Klonopin) 0.25 mg PO BID [facility] PRN Reason: Protocol Last Admin: 11/13/17 17:03 Dose: 0.25 mg Duloxetine HCl (Cymbalta) 20 mg PO HS [facility] Last Admin: 11/13/17 21:10 Dose: 20 mg Folic Acid (Folic Acid) 1 mg PO DAILY [facility] Last Admin: 11/13/17 10:08 Dose: 1 mg Furosemide (Lasix) 40 mg IVP Q12H [facility] Last Admin: 11/14/17 05:41 Dose: 40 mg Gabapentin (Neurontin) 600 mg PO BID [facility] PRN Reason: Protocol Last Admin: 11/13/17 17:02 Dose: 600 mg Home Med (Home Med) 1 unit IH DAILY [facility] Last Admin: 11/13/17 10:46 Dose: 1 unit Home Med (Home Med) 1 unit IH DAILY [facility] Last Admin: 11/13/17 10:10 Dose: 1 unit Home Med (Home Med) 1 unit IH DAILY [facility] Last Admin: 11/13/17 10:09 Dose: Not Given Meropenem 1 gm/ Sodium (Chloride) 100 mls @ 100 mls/hr IVPB Q8 [facility] Stop: 11/19/17 22:01 Last Admin: 11/14/17 05:41 Dose: 100 mls/hr Lactic Acid (Lac-Hydrin 12% Lotion (225 G)) 0 gm EXT DAILY [facility] Last Admin: 11/13/17 10:08 Dose: 1 unit Methylprednisolone (Solu-Medrol) 20 mg IVP Q12 [facility] Last Admin: 11/13/17 21:11 Dose: 20 mg Oxycodone HCl (Oxycodone Immediate Release Tab) 10 mg PO Q6H PRN PRN Reason: Pain, severe (8-10) Last Admin: 11/14/17 06:51 Dose: 10 mg Quetiapine Fumarate (Seroquel) 200 mg PO HS [facility] PRN Reason: Protocol Last Admin: 11/13/17 21:11 Dose: 200 mg Sodium Chloride ([place] Nasal [place]) 0 ml NS DAILY PRN PRN Reason: Nasal congestion Last Admin: 11/12/17 14:49 Dose: 1 sprays Spironolactone (Aldactone) 50 mg PO DAILY [facility] Last Admin: 11/13/17 10:08 Dose: 50 mg Thiamine HCl (Vitamin B1 Tab) 100 mg PO DAILY [facility] Last Admin: 11/13/17 10:08 Dose: 100 mg - Labs Labs: 11/10/17 06:40 11/13/17 06:30 PT 16.9 SECONDS (9.4-12.5) H 11/10/17 06:40 INR 1.52 (0.93-1.08) H 11/10/17 06:40 APTT 33.6 Seconds (25.1-36.5) 11/09/17 10:10 Attending/Attestation - Attestation I have personally seen and examined this patient.: Yes I have fully participated in the care of the patient.: Yes I have reviewed all pertinent clinical information, including history, physical exam and plan: Yes
[2017-11-13] MEDS: Meropenem 1 GM in Sodium Chloride 0.9% 100 ML IVPB SCH ×2 (14:27→21:10)
--- NOTE | 2017-11-13 14:33 | PN ---
DATE: 11/13/2017 He is being seen today for a followup consultation. PRESENTATION: The patient is a 57-year-old white male, appearing older than his stated age. He is seen at his bedside. He carries a diagnosis of cirrhosis and abdominal ascites. He continues to have a large girth. The patient was originally seen for followup because he has a history of psychiatric difficulties. He did not want to be followed. He sees Dr. Frias in the community and feels he is well managed and wants to continue with him; however, when seen, the patient was very sedated and in further exploration of his medication, it turns out that he was on his home dose of Seroquel, but it was being given at 10 a.m. and causing him to be quite lethargic during the day, so I decreased the dosage and moved it to bedtime, so we are following up with him today to see how he tolerated that. He greets me by saying "what are you doing back here again" and then he starts laughing which I reminded him that I had changed his medication and asked him, how it went, and he said he felt much better, thank you, but he did not want to be followed any further. He effectively is improved and appears to be in good spirits. MENTAL STATUS EXAM: The patient is alert and oriented x3. His eye contact is good. His behavior is cooperative. His speech rate and volume are within normal limits. Mood is euthymic. Affect is full. Thoughts are goal directed. He denies being suicidal or homicidal. He denies presence of hallucinations, delusions or paranoia. His concentration and focus, he indicates are normal. His memory both short-term and long-term appears to be adequate. Appetite is good and he indicates he is sleeping well at night. Current labs include sputum, blood and peritoneal fluid all have no growth after 48 hours. Gram stain is still pending on the blood and the peritoneal fluid. PHYSICAL EXAMINATION: CURRENT VITAL SIGNS: Temperature of 97.8, pulse rate of 74, his blood pressure is 151/78, respirations are 18 and with an O2 saturation of 95 today. PLAN: The patient appears to be stable. Psychiatrically, he is clear. He denies being suicidal or homicidal and appears in no imminent danger of hurting himself or others. He is tolerating medication change well, so we will sign off on the patient. CURRENT MEDICATIONS: Zithromax, Lotrisone, Klonopin 0.25 mg one p.o. b.i.d., Cymbalta 20 mg one at bedtime, folic acid, Lasix, gabapentin 600 mg one p.o. b.i.d. He has some home medications, lactic acid, Solu-Medrol, oxycodone for severe pain as needed and the Seroquel is now 100 mg at bedtime and that is working out for him. He additionally is on Aldactone and vitamin B1. Please call if there are any further concerns for this patient, followup is with Dr. Frias in the community. Beena Cabrera APN Bryan Wyatt MD MTDD
--- NOTE | 2017-11-13 15:07 | CP.PCM.PN ---
Subjective - Date & Time of Evaluation Date of Evaluation: 11/13/17 Time of Evaluation: 10:55 - Subjective Subjective: NEUROLOGY CONSULTATION CHIEF COMPLAINT: Right thigh burning pain and numbness and tingling. SUBJECTIVE: Currently, he is walking around without any difficulty. He is on gabapentin 600 mg p.o. b.i.d. and Klonopin for anxiety. PAST MEDICAL HISTORY: History of sleep apnea, cirrhotic liver with ascites, obstructive pulmonary disease, pulmonary hypertension, anxiety, depression, bilateral chronic lower extremity edema. SOCIAL HISTORY: No illicit drug use, smoking, or EtOH use at this time. ALLERGIES: NO KNOWN DRUG ALLERGIES. MEDICATIONS: Reviewed by nurse's reconciliation sheet. REVIEW OF SYSTEMS: A 14-point review of systems is negative except as in the HPI. PHYSICAL EXAMINATION GENERAL: The patient is sitting up in bed, in no acute distress. VITAL SIGNS: REVIEWED. HEENT: Head is atraumatic and normocephalic. PERRLA. Extraocular muscles intact. NECK: Supple. No JVD. No adenopathy noted. LUNGS: Decreased breath sounds bilaterally. ABDOMEN: Soft, nontender and nondistended. Bowel sounds are present. EXTREMITIES: Trace edema in the lower extremities and stasis dermatitis in the lower extremities as well. NEUROLOGIC: The patient is alert and oriented to time, person, place, month and year. Speech is fluent without any errors. Cranial nerves II through XII are intact. Poor attention span and slow thought process. Flat affect. Motor exam: Moves all extremities equally. No pronator drift seen. Sensory exam: Decreased light touch, pinprick, and proprioception up to the calves bilaterally. Decreased vibration of the toes and knees. DTRs are 2+ throughout, 1 at both knees and absent at the ankles. Coordination: [id number] intact. Gait is slightly wide based. LABORATORY DATA: REVIEWED. ASSESSMENT AND PLAN: This is a 57-year-old man with past medical history of morbid obesity, pneumonia, ascites, sleep apnea syndrome, cirrhotic liver, obstructive pulmonary disease, pulmonary hypertension, anxiety, depression, and history of suicidal ideation, who came in for shortness of breath and bilateral worsening lower extremity edema, which is being evaluated, was consulted for right thigh burning pain with some paresthesia in the right thigh area, and he mentioned that it happened after he did extreme stretching over a week ago. At this time, his right thigh paresthesia and pain is likely secondary to right meralgia paresthetica which is affecting the lateral femoral cutaneous nerve of the thigh. At this time, recommend: 1. Continue with gabapentin 600 mg p.o. b.i.d. and Cymbalta 20 mg p.o. at bedtime for neuropathic relief. 2. Will need physical therapy, likely subacute rehab in terms of hamstring stretching as well as thigh exercises to relieve pressure over the lateral femoral cutaneous nerve and therapeutic exercises. 3. Continue with management for underlying COPD and bilateral chronic lower extremity edema. 4. Continue to monitor electrolytes and correct accordingly. THANK YOU Dav Marte MD Objective - Vital Signs/Intake and Output Vital Signs (last 24 hours): Temp Pulse Resp BP Pulse Ox 97.8 F 74 18 151/78 H 95 11/13/17 07:30 11/13/17 07:30 11/13/17 07:30 11/13/17 07:30 11/13/17 07:30 Intake and Output: 11/13/17 11/13/17 06:59 18:59 Intake Total 1020 840 Balance 1020 840 - Medications Medications: Current Medications Azithromycin (Zithromax) 500 mg PO DAILY [facility] PRN Reason: Protocol Last Admin: 11/13/17 10:07 Dose: 500 mg Betamethasone/Clotrimazole (Lotrisone) 0 gm TOP BID [facility] Last Admin: 11/13/17 10:46 Dose: 1 appful Clonazepam (Klonopin) 0.25 mg PO BID [facility] PRN Reason: Protocol Last Admin: 11/13/17 10:08 Dose: 0.25 mg Duloxetine HCl (Cymbalta) 20 mg PO HS [facility] Last Admin: 11/12/17 21:12 Dose: 20 mg Folic Acid (Folic Acid) 1 mg PO DAILY [facility] Last Admin: 11/13/17 10:08 Dose: 1 mg Furosemide (Lasix) 40 mg IVP Q12H [facility] Last Admin: 11/13/17 06:04 Dose: 40 mg Gabapentin (Neurontin) 600 mg PO BID [facility] PRN Reason: Protocol Last Admin: 11/13/17 10:07 Dose: 600 mg Home Med (Home Med) 1 unit IH DAILY [facility] Last Admin: 11/13/17 10:46 Dose: 1 unit Home Med (Home Med) 1 unit IH DAILY [facility] Last Admin: 11/13/17 10:10 Dose: 1 unit Home Med (Home Med) 1 unit IH DAILY [facility] Last Admin: 11/13/17 10:09 Dose: Not Given Meropenem 1 gm/ Sodium (Chloride) 100 mls @ 100 mls/hr IVPB Q8 [facility] Stop: 11/19/17 22:01 Last Admin: 11/13/17 14:27 Dose: 100 mls/hr Lactic Acid (Lac-Hydrin 12% Lotion (225 G)) 0 gm EXT DAILY [facility] Last Admin: 11/13/17 10:08 Dose: 1 unit Methylprednisolone (Solu-Medrol) 20 mg IVP Q12 [facility] Last Admin: 11/13/17 10:15 Dose: 20 mg Oxycodone HCl (Oxycodone Immediate Release Tab) 10 mg PO Q6H PRN PRN Reason: Pain, severe (8-10) Last Admin: 11/13/17 10:32 Dose: 10 mg Quetiapine Fumarate (Seroquel) 100 mg PO HS [facility] PRN Reason: Protocol Last Admin: 11/12/17 21:13 Dose: 100 mg Sodium Chloride (Andrew Nasal [place]) 0 ml NS DAILY PRN PRN Reason: Nasal congestion Last Admin: 11/12/17 14:49 Dose: 1 sprays Spironolactone (Aldactone) 50 mg PO DAILY [facility] Last Admin: 11/13/17 10:08 Dose: 50 mg Thiamine HCl (Vitamin B1 Tab) 100 mg PO DAILY [facility] Last Admin: 11/13/17 10:08 Dose: 100 mg - Labs Labs: 11/10/17 06:40 11/13/17 06:30 PT 16.9 SECONDS (9.4-12.5) H 11/10/17 06:40 INR 1.52 (0.93-1.08) H 11/10/17 06:40 APTT 33.6 Seconds (25.1-36.5) 11/09/17 10:10
--- NOTE | 2017-11-13 15:15 | PN ---
DATE OF SERVICE: 11/13/2017 SUBJECTIVE: The patient is in bed, in no acute distress, nontoxic. No fever or chills. The patient is seen early this morning in room #561, bed #2. OBJECTIVE: VITAL SIGNS: On exam, temperature is 98, blood pressure is 120/70, and respiratory rate is 16. HEENT: Unremarkable. NECK: Supple. LUNGS: Decreased breath sounds. HEART: Normal S1 and S2. ABDOMEN: Soft, nontender. LABORATORY DATA: Examination reveals the white count is 5.6, hemoglobin of 14, BUN of 19, and creatinine of 0.9. Urinalysis is noted and HIV is negative. Urine for Legionella antigen is negative. Blood cultures are negative. Peritoneal fluid cultures are negative. Sputum cultures are negative. Dr. Marie's note is reviewed. Dr. Marte's consultation is appreciated. ASSESSMENT AND PLAN: This is a 57-year-old male with morbid obesity, body mass index of 46, spinal stenosis, arthritis, degenerative joint disease, liver disease, depression, anxiety, cirrhosis of the liver, chronic obstructive lung disease, peripheral neuropathy, anemia, presented with sepsis, spontaneous bacterial peritonitis with over 500 white blood cells in the peritoneal fluid associated with community-acquired pneumonia, congestive heart failure with acute diastolic congestive heart failure on top of chronic congestive heart failure, on meropenem and Zithromax, day #4 of meropenem and Zithromax, maybe able to switch to oral antibiotics upon discharge, may change the meropenem to Augmentin and complete the Zithromax therapy, currently on Solu-Medrol. The patient is with pulmonary hypertension. Overall prognosis is poor. Raj Mccrary MD
--- NOTE | 2017-11-13 21:16 | PN ---
DATE: 11/13/2017 SUBJECTIVE: This patient appears to be much more comfortable. PHYSICAL EXAMINATION VITAL SIGNS: Temperature is 97.1, pulse is 74, blood pressure is 117/87. HEENT: Atraumatic, anicteric. NECK: Supple. HEART: S1 and S2 heard. LUNGS: Bilateral air entry present, slightly reduced in the base. ABDOMEN: Softly distended. EXTREMITIES: Edema significantly improved. LABORATORY DATA: Chemistry shows sodium 143, potassium 4.3, BUN 19, creatinine 0.8, AST 63, ALT 64. IMPRESSION AND PLAN: This 57-year-old patient with decompensated cirrhosis, probably secondary to active alcohol use, history of pulmonary hypertension, chronic obstructive pulmonary disease, morbid obesity, anxiety, depression, had admitted with ascitis, status post large volume paracentesis done, has relative lymphocytosis in the ascitic fluid. Patient has been on antibiotics, now possible pneumonia, chronic obstructive pulmonary disease. The concern is about the ascitic fluid, neutrophil count is less than 250, but is predominantly lymphocytosis. We will discuss also with ID regarding this. Continue the antibiotics as per ID. We will continue to closely follow up his care and suggest further management based on the clinical course. Cielo Garcias MD MTDD
--- NOTE | 2017-11-13 21:33 | CP.PCM.PN ---
<Mary Grace Phillips - Last Filed: 11/15/17 12:55> Subjective - Date & Time of Evaluation Date of Evaluation: 11/13/17 Time of Evaluation: 18:00 - Subjective Subjective: 68 yr male w/ history of periperhal edema, asthma, COPD, peripheral neuropathy, anemia, cirrhosis of liver, multiple leg wound, DJD, arthritis, back pain, herniated disc, morbid obesity, spinal stenosis, unsteady gait, swollen testicles, anxiety, depression, & ETOH abuse. Pt is sitting up in chair at bedside. He denies any stomach discomfort at this time. He says, "I have a hard time sleeping because I always took 200mg of seroquel. Please put back my home medication dose." Denies any headaches, SOB, N/V, fevers, constipation, diarrhea, urinary changes or distress. Objective - Vital Signs/Intake and Output Vital Signs (last 24 hours): Temp Pulse Resp BP Pulse Ox 97.1 F L 74 18 117/87 95 11/13/17 16:13 11/13/17 16:13 11/13/17 16:13 11/13/17 17:04 11/13/17 16:13 Intake and Output: 11/13/17 11/14/17 18:59 06:59 Intake Total 940 Balance 940 - Medications Medications: Current Medications Azithromycin (Zithromax) 500 mg PO DAILY [facility] PRN Reason: Protocol Last Admin: 11/13/17 10:07 Dose: 500 mg Betamethasone/Clotrimazole (Lotrisone) 0 gm TOP BID [facility] Last Admin: 11/13/17 10:46 Dose: 1 appful Clonazepam (Klonopin) 0.25 mg PO BID [facility] PRN Reason: Protocol Last Admin: 11/13/17 17:03 Dose: 0.25 mg Duloxetine HCl (Cymbalta) 20 mg PO HS [facility] Last Admin: 11/13/17 21:10 Dose: 20 mg Folic Acid (Folic Acid) 1 mg PO DAILY [facility] Last Admin: 11/13/17 10:08 Dose: 1 mg Furosemide (Lasix) 40 mg IVP Q12H [facility] Last Admin: 11/13/17 17:04 Dose: 40 mg Gabapentin (Neurontin) 600 mg PO BID [facility] PRN Reason: Protocol Last Admin: 11/13/17 17:02 Dose: 600 mg Home Med (Home Med) 1 unit IH DAILY [facility] Last Admin: 11/13/17 10:46 Dose: 1 unit Home Med (Home Med) 1 unit IH DAILY [facility] Last Admin: 11/13/17 10:10 Dose: 1 unit Home Med (Home Med) 1 unit IH DAILY [facility] Last Admin: 11/13/17 10:09 Dose: Not Given Meropenem 1 gm/ Sodium (Chloride) 100 mls @ 100 mls/hr IVPB Q8 [facility] Stop: 11/19/17 22:01 Last Admin: 11/13/17 21:10 Dose: 100 mls/hr Lactic Acid (Lac-Hydrin 12% Lotion (225 G)) 0 gm EXT DAILY [facility] Last Admin: 11/13/17 10:08 Dose: 1 unit Methylprednisolone (Solu-Medrol) 20 mg IVP Q12 [facility] Last Admin: 11/13/17 21:11 Dose: 20 mg Oxycodone HCl (Oxycodone Immediate Release Tab) 10 mg PO Q6H PRN PRN Reason: Pain, severe (8-10) Last Admin: 11/13/17 17:03 Dose: 10 mg Quetiapine Fumarate (Seroquel) 200 mg PO HS [facility] PRN Reason: Protocol Last Admin: 11/13/17 21:11 Dose: 200 mg Sodium Chloride (Aurelia Nasal [place]) 0 ml NS DAILY PRN PRN Reason: Nasal congestion Last Admin: 11/12/17 14:49 Dose: 1 sprays Spironolactone (Aldactone) 50 mg PO DAILY [facility] Last Admin: 11/13/17 10:08 Dose: 50 mg Thiamine HCl (Vitamin B1 Tab) 100 mg PO DAILY [facility] Last Admin: 11/13/17 10:08 Dose: 100 mg - Labs Labs: 11/10/17 06:40 11/13/17 06:30 PT 16.9 SECONDS (9.4-12.5) H 11/10/17 06:40 INR 1.52 (0.93-1.08) H 11/10/17 06:40 APTT 33.6 Seconds (25.1-36.5) 11/09/17 10:10 - Constitutional Appears: No Acute Distress, Chronically Ill - Head Exam Head Exam: ATRAUMATIC, NORMAL INSPECTION, NORMOCEPHALIC Additional comments: face appears reddened. fragile skin noted. - Eye Exam Eye Exam: EOMI, Normal appearance, PERRL - ENT Exam ENT Exam: Mucous Membranes Moist, Normal Exam - Respiratory Exam Respiratory Exam: Clear to Ausculation Bilateral, NORMAL BREATHING PATTERN - Cardiovascular Exam Cardiovascular Exam: REGULAR RHYTHM, +S1, +S2. absent: Murmur - GI/Abdominal Exam Additional comments: obese, excessive adipose tissue in stomach, large panniculus - Extremities Exam Extremities Exam: Full ROM, Normal Capillary Refill - Back Exam Back Exam: NORMAL INSPECTION - Neurological Exam Neurological Exam: Alert, Awake, CN II-XII Intact, Normal Gait, Oriented x3 - Psychiatric Exam Psychiatric exam: Normal Affect, Normal Mood - Skin Skin Exam: Dry, Erythema, Intact, Warm Assessment and Plan (1) Hyperglycemia Status: Acute (2) Elevated LFTs Status: Acute (3) Pneumonia Status: Acute (4) Ascites due to alcoholic cirrhosis Status: Acute (5) Shortness of breath Status: Acute - Assessment and Plan (Free Text) Assessment: IV meropenem/azithromycin. IV steroids. Bipap. Paracentesis done (650ml removed) . BLE discoloration/xerosis tx w. lotrisone & dimethicone. ETOH/Depression stable, increased seroquel to 200mg per patient home med reconciliation. Consults: Surgery - Dr. Katya Johnston = s/p paracentesis GI - Dr. Garcias = asictic fluid, neutrophil count less than 250ml, predominantly lymphocytosis Pulmonary - = IV abx azithromycin. IV and inhaled bronchodilators. elevate lower extremities. smoking cessation, fall precautions, added thiamine. I.D. - Dr. Mccrary = spontaneous bacterial peritonitis w over 500 WBC w/ CAP , IV meropenem and zithromax may switch to oral antibiotics (agumentin) upon D/ C home, EF 56% Podiatry - Dr. Cho/Dr. Thomas = lotrisone cream LE & dimethicone skin protectant Psych - Dr. Doll/NP. Cabrera = f/u w/ [facility] in community Neuro - Dr. Marte = Gabapentin, cymbalta, P.T., JIMMIE of hamstring/thigh w/ stretches (R thigh paresthesia & pain s/t R meralgia paresthetica affecting lateral femoral cutaneous nerve of the thigh) Reviewed: Cytology = Ascitic fluid. negative malignant cells. meothelial cells and blood. Paracentesis Ultrasound = 6.5 liters of straw colored fluid was removed through ultrasound guided large volume paracentesis. CXR = RLL infiltrate, atelectasis Bilateral leg doppler = (-) DVT US abd = hepatosplenomegaly w/o focal abnormality, intra-abdominal ascites ECG = ABNORMAL SR w. PAC, R superior axis deviation, pulmonary disease pattern, nonspecific T wave abn <Winsome Mackey - Last Filed: 11/16/17 18:03> Objective - Vital Signs/Intake and Output Vital Signs (last 24 hours): Temp Pulse Resp BP Pulse Ox 98.8 F 69 20 138/90 95 11/16/17 16:26 11/16/17 16:26 11/16/17 16:26 11/16/17 16:26 11/16/17 16:26 Intake and Output: 11/16/17 11/16/17 06:59 18:59 Intake Total 1260 Output Total 800 Balance 460 - Medications Medications: Current Medications Amoxicillin/Clavulanate Potassium (Augmentin 875 Mg-125 Mg Tab) 1 tab PO Q12 [facility] PRN Reason: Protocol Stop: 11/21/17 22:01 Last Admin: 11/16/17 09:35 Dose: 1 tab Azithromycin (Zithromax) 500 mg PO DAILY [facility] PRN Reason: Protocol Last Admin: 11/16/17 09:37 Dose: 500 mg Betamethasone/Clotrimazole (Lotrisone) 0 gm TOP BID [facility] Last Admin: 11/16/17 09:32 Dose: 1 appful Clonazepam (Klonopin) 0.25 mg PO BID [facility] PRN Reason: Protocol Last Admin: 11/16/17 09:34 Dose: 0.25 mg Duloxetine HCl (Cymbalta) 20 mg PO HS [facility] Last Admin: 11/15/17 22:04 Dose: 20 mg Folic Acid (Folic Acid) 1 mg PO DAILY [facility] Last Admin: 11/16/17 09:37 Dose: 1 mg Furosemide (Lasix) 40 mg IVP Q12H [facility] Last Admin: 11/16/17 06:36 Dose: 40 mg Gabapentin (Neurontin) 600 mg PO BID [facility] PRN Reason: Protocol Last Admin: 11/16/17 09:37 Dose: 600 mg Home Med (Home Med) 1 unit IH DAILY [facility] Last Admin: 11/15/17 10:59 Dose: Not Given Home Med (Home Med) 1 unit IH DAILY [facility] Last Admin: 11/16/17 09:33 Dose: 1 unit Home Med (Home Med) 1 unit IH DAILY [facility] Last Admin: 11/16/17 09:33 Dose: 1 unit Lactic Acid (Lac-Hydrin 12% Lotion (225 G)) 0 gm EXT DAILY [facility] Last Admin: 11/16/17 09:31 Dose: 1 unit Methylprednisolone (Solu-Medrol) 20 mg IVP Q12 [facility] Last Admin: 11/16/17 09:38 Dose: 20 mg Nicotine (Nicoderm Cq) 1 patch TD DAILY [facility] Last Admin: 11/16/17 09:37 Dose: 1 patch Oxycodone HCl (Oxycodone Immediate Release Tab) 10 mg PO Q6H PRN PRN Reason: Pain, severe (8-10) Last Admin: 11/16/17 12:36 Dose: 10 mg Quetiapine Fumarate (Seroquel) 200 mg PO [facility] PRN Reason: Protocol Last Admin: 11/15/17 22:03 Dose: 200 mg Sodium Chloride (Aurelia Nasal [place]) 0 ml NS DAILY PRN PRN Reason: Nasal congestion Last Admin: 11/12/17 14:49 Dose: 1 sprays Spironolactone (Aldactone) 100 mg PO DAILY [facility] Thiamine HCl (Vitamin B1 Tab) 100 mg PO DAILY [facility] Last Admin: 11/16/17 09:37 Dose: 100 mg - Labs Labs: 11/15/17 07:00 11/15/17 07:00 PT 16.9 SECONDS (9.4-12.5) H 11/10/17 06:40 INR 1.52 (0.93-1.08) H 11/10/17 06:40 APTT 33.6 Seconds (25.1-36.5) 11/09/17 10:10 Assessment and Plan - Assessment and Plan (Free Text) Assessment: pt is seen and examined at bed side , looking comfortable , h/o ethnol , liver disease , h/o paracentesis, copd . ch . back pain . getting pain meds . agreed all above . cont. present treatment . will f/u
--- NOTE | 2017-11-14 01:52 | PN ---
DATE: 11/13/2017 PULMONARY PROGRESS NOTE REFERRING PHYSICIAN: Dr. Mackey. SUBJECTIVE: He is ambulating in the hallway, feels better, still every night has cough. No shortness of breath. No chest pain. No nausea. Again recurrent ascites. Decreased leg swelling. OBJECTIVE: GENERAL: In no acute distress. VITAL SIGNS: Temperature 98, heart rate 74, respiratory rate 18, blood pressure 117/87, pulse ox 95% on room air. HEENT: Moist mucous membranes. Crowded airway. NECK: Supple. No JVD. Nasal mucosa moist, erythematous. LUNGS: Has a fair airflow with rhonchi. HEART: S1 and S2. ABDOMEN: Distended, has ascites. EXTREMITIES: Decreased edema. NEUROLOGIC: Awake, alert, follow simple commands. MEDICATIONS: Aldactone 50 mg daily, Cymbalta 20 mg at bedtime, folic acid 1 mg daily, Klonopin 0.25 mg twice a day, Lasix 40 mg IV twice a day, Lotrisone to affected area twice a day, meropenem 1 g IV q. 8 hours, Neurontin 600 mg twice a day, oxycodone immediate release 10 mg q. 6 hours p.r.n., Seroquel 200 mg at bedtime, Solu-Medrol 20 mg q. 12 hours, vitamin B1 100 mg daily, Zithromax 500 mg daily. LABORATORY DATA: Reviewed, noted sodium 147, potassium 4.3, chloride 100, bicarbonate 33, BUN 19, creatinine 0.8, glucose 106, calcium 8.9, total bilirubin 1.0, AST 63, ALT 54, alk phos 89, albumin 4.3. Microbiology: Blood culture and sputum culture, there is no growth. IMPRESSION AND PLAN: Morbid obesity, sleep apnea syndrome, chronic liver disease, ascites, obstructive pulmonary disease, pulmonary hypertension, anxiety disorder, depression, history of suicidal ideation in the past, large ascites, status post volume , lumbar radiculopathy. From pulmonary point of view, doing okay. Continue IV and inhaled bronchodilator. Continue antibiotics. Continue diuretics, elevate lower extremity. Thank you and we will follow with you. Juan Marie MD
[2017-11-14] MEDS: Meropenem 1 GM in Sodium Chloride 0.9% 100 ML IVPB SCH ×3 (05:41→21:07)
[2017-11-14] MEDS: oxyCODONE 10 mg Immediate Release Tab PO PRN ×3 (06:51→18:51)
--- NOTE | 2017-11-14 09:58 | CP.PCM.PN ---
<Xavier Hunt - Last Filed: 11/14/17 09:55> Subjective - Date & Time of Evaluation Date of Evaluation: 11/14/17 Time of Evaluation: 09:55 - Subjective Subjective: Podiatry Progress Note- Dr. Cho/ 57 y.o male seen and evaluated at bedside for lower extremity edema and erythema. Patient is seen resting comfortably at bedside in NAD, and AA0x3. Patient denies any acute overnight events. Patient was not wearing compression stockings at the time of visitation. Patient reports that he is feeling better and has been ambulating around more the hospital. Patient denies n/v/cp/chills/ f or d. Patient reports his breathing has improved. No other pedal complaints at this time. Objective - Vital Signs/Intake and Output Vital Signs (last 24 hours): Temp Pulse Resp BP Pulse Ox 97.8 F 68 17 121/80 97 11/14/17 08:13 11/14/17 08:13 11/14/17 08:13 11/14/17 08:13 11/14/17 08:13 Intake and Output: 11/14/17 11/14/17 06:59 18:59 Intake Total 240 Balance 240 - Medications Medications: Current Medications Azithromycin (Zithromax) 500 mg PO DAILY [facility] PRN Reason: Protocol Last Admin: 11/13/17 10:07 Dose: 500 mg Betamethasone/Clotrimazole (Lotrisone) 0 gm TOP BID [facility] Last Admin: 11/13/17 10:46 Dose: 1 appful Clonazepam (Klonopin) 0.25 mg PO BID [facility] PRN Reason: Protocol Last Admin: 11/13/17 17:03 Dose: 0.25 mg Duloxetine HCl (Cymbalta) 20 mg PO HS [facility] Last Admin: 11/13/17 21:10 Dose: 20 mg Folic Acid (Folic Acid) 1 mg PO DAILY [facility] Last Admin: 11/13/17 10:08 Dose: 1 mg Furosemide (Lasix) 40 mg IVP Q12H [facility] Last Admin: 11/14/17 05:41 Dose: 40 mg Gabapentin (Neurontin) 600 mg PO BID [facility] PRN Reason: Protocol Last Admin: 11/13/17 17:02 Dose: 600 mg Home Med (Home Med) 1 unit IH DAILY [facility] Last Admin: 11/13/17 10:46 Dose: 1 unit Home Med (Home Med) 1 unit IH DAILY [facility] Last Admin: 11/13/17 10:10 Dose: 1 unit Home Med (Home Med) 1 unit IH DAILY [facility] Last Admin: 11/13/17 10:09 Dose: Not Given Meropenem 1 gm/ Sodium (Chloride) 100 mls @ 100 mls/hr IVPB Q8 [facility] Stop: 11/19/17 22:01 Last Admin: 11/14/17 05:41 Dose: 100 mls/hr Lactic Acid (Lac-Hydrin 12% Lotion (225 G)) 0 gm EXT DAILY [facility] Last Admin: 11/13/17 10:08 Dose: 1 unit Methylprednisolone (Solu-Medrol) 20 mg IVP Q12 [facility] Last Admin: 11/13/17 21:11 Dose: 20 mg Oxycodone HCl (Oxycodone Immediate Release Tab) 10 mg PO Q6H PRN PRN Reason: Pain, severe (8-10) Last Admin: 11/14/17 06:51 Dose: 10 mg Quetiapine Fumarate (Seroquel) 200 mg PO HS [facility] PRN Reason: Protocol Last Admin: 11/13/17 21:11 Dose: 200 mg Sodium Chloride ([place] Nasal [place]) 0 ml NS DAILY PRN PRN Reason: Nasal congestion Last Admin: 11/12/17 14:49 Dose: 1 sprays Spironolactone (Aldactone) 50 mg PO DAILY [facility] Last Admin: 11/13/17 10:08 Dose: 50 mg Thiamine HCl (Vitamin B1 Tab) 100 mg PO DAILY [facility] Last Admin: 11/13/17 10:08 Dose: 100 mg - Labs Labs: 11/10/17 06:40 11/13/17 06:30 PT 16.9 SECONDS (9.4-12.5) H 11/10/17 06:40 INR 1.52 (0.93-1.08) H 11/10/17 06:40 APTT 33.6 Seconds (25.1-36.5) 11/09/17 10:10 - Constitutional Appears: Well, Non-toxic, No Acute Distress - Extremities Exam Additional comments: Vasc: DP and PT 2/4 bilaterally, CFT < 3 seconds to digits, temperature gradient WNL, pitting edema noted to the LE Ortho: tenderness with palpation to the LE, MM is 5/5 in all four compartments: dorsiflexion, plantarflexion, inversion, eversion Neuro: gross and protective sensation diminished Derm: reduced erythema noted to the entire LE bilaterally, mild xerosis to the LE noted- has improved significantly, no open lesions noted, no active drainage , no tunneling, no undermining no probe to bone, no open lesions to the LE - Neurological Exam Neurological Exam: Alert, Awake, Oriented x3 - Psychiatric Exam Psychiatric exam: Normal Affect, Normal Mood Assessment and Plan - Assessment and Plan (Free Text) Assessment: 57 y.o male wit bilaterally lower extremity edema with redness- improving Plan: Patient examined and evaluated at bedside with attending Dr. Thomas Charts, labs, vitals reviewed (afebrile, WBC=5.6 on 11/10/17 absent leukocytosis ) Discussed the plan in detail with attending Lotrisone cream applied to LE, followed by Gómez Instructed on the importance of wearing compression stockings. Reports that patient has to wear compression stockings when ambulating May take off at night when in bed Patient is stable per podiatry standpoint Podiatry will continue to follow while in house <Kannan Thomas - Last Filed: 11/17/17 10:52> Objective - Vital Signs/Intake and Output Vital Signs (last 24 hours): Temp Pulse Resp BP Pulse Ox 97.7 F 52 L 20 102/64 96 11/17/17 07:00 11/17/17 07:00 11/17/17 07:00 11/17/17 07:00 11/17/17 07:00 Intake and Output: 11/17/17 11/17/17 06:59 18:59 Intake Total 420 Balance 420 - Medications Medications: Current Medications Albuterol Sulfate (Albuterol 0.042% Inhal Jena (1.25mg/3ml) Ud) 1.25 mg IH [id number] [facility] Stop: 11/17/17 20:00 Last Admin: 11/17/17 07:28 Dose: 1.25 mg Amoxicillin/Clavulanate Potassium (Augmentin 875 Mg-125 Mg Tab) 1 tab PO Q12 [facility] PRN Reason: Protocol Stop: 11/21/17 22:01 Last Admin: 11/17/17 10:14 Dose: 1 tab Azithromycin (Zithromax) 500 mg PO DAILY [facility] PRN Reason: Protocol Last Admin: 11/17/17 10:14 Dose: 500 mg Betamethasone/Clotrimazole (Lotrisone) 0 gm TOP BID [facility] Last Admin: 11/17/17 10:14 Dose: 1 appful Clonazepam (Klonopin) 0.25 mg PO BID [facility] PRN Reason: Protocol Last Admin: 11/17/17 10:14 Dose: 0.25 mg Duloxetine HCl (Cymbalta) 20 mg PO HS [facility] Last Admin: 11/16/17 22:02 Dose: 20 mg Folic Acid (Folic Acid) 1 mg PO DAILY [facility] Last Admin: 11/17/17 10:16 Dose: 1 mg Furosemide (Lasix) 40 mg IVP Q12H [facility] Last Admin: 11/17/17 05:30 Dose: 40 mg Gabapentin (Neurontin) 600 mg PO BID [facility] PRN Reason: Protocol Last Admin: 11/17/17 10:16 Dose: 600 mg Home Med (Home Med) 1 unit IH DAILY [facility] Last Admin: 11/17/17 10:18 Dose: Not Given Home Med (Home Med) 1 unit IH DAILY [facility] Last Admin: 11/17/17 10:17 Dose: 1 unit Home Med (Home Med) 1 unit IH DAILY [facility] Last Admin: 11/17/17 10:17 Dose: 1 unit Lactic Acid (Lac-Hydrin 12% Lotion (225 G)) 0 gm EXT DAILY [facility] Last Admin: 11/17/17 10:17 Dose: 1 unit Methylprednisolone (Solu-Medrol) 20 mg IVP Q12 [facility] Last Admin: 11/17/17 10:13 Dose: 20 mg Nicotine (Nicoderm Cq) 1 patch TD DAILY [facility] Last Admin: 11/17/17 10:18 Dose: 1 patch Oxycodone HCl (Oxycodone Immediate Release Tab) 10 mg PO Q6H PRN PRN Reason: Pain, severe (8-10) Last Admin: 11/17/17 05:33 Dose: 10 mg Quetiapine Fumarate (Seroquel) 200 mg PO HS [facility] PRN Reason: Protocol Last Admin: 11/16/17 22:02 Dose: 200 mg Sodium Chloride ([place] Nasal [place]) 0 ml NS DAILY PRN PRN Reason: Nasal congestion Last Admin: 11/12/17 14:49 Dose: 1 sprays Spironolactone (Aldactone) 100 mg PO DAILY [facility] Last Admin: 11/17/17 10:14 Dose: 100 mg Thiamine HCl (Vitamin B1 Tab) 100 mg PO DAILY [facility] Last Admin: 11/17/17 10:14 Dose: 100 mg - Labs Labs: 11/17/17 06:20 11/17/17 06:20 PT 16.9 SECONDS (9.4-12.5) H 11/10/17 06:40 INR 1.52 (0.93-1.08) H 11/10/17 06:40 APTT 33.6 Seconds (25.1-36.5) 11/09/17 10:10 Attending/Attestation - Attestation I have personally seen and examined this patient.: Yes I have fully participated in the care of the patient.: Yes I have reviewed all pertinent clinical information, including history, physical exam and plan: Yes
[2017-11-14] MEDS: MethylPREDNISolone 40 mg Vial IVP SCH ×2 (10:14→21:07)
[2017-11-14] MEDS: ALBUTEROL SULFATE IH SCH (10:17)
[2017-11-14] MEDS: Tiotropium Bromide [Spiriva Respimat] IH SCH ×2 (10:18→13:02)
[2017-11-14] MEDS: Fluticasone/Vilanterol [Breo Ellipta 100-25 Mcg Inh] IH SCH (10:18)
[2017-11-14] MEDS: Clotrimazole/Betamethasone Cream(15 gm) TOP SCH ×3 (10:19→17:34)
[2017-11-14] MEDS: Ammonium Lactate 12% Lotion (225 g) EXT SCH (10:19)
--- NOTE | 2017-11-14 19:37 | PN ---
DATE: SUBJECTIVE: The patient is 57-year-old male. The patient is seen and examined on the bedside, looking comfortable, sitting on the chair. Swelling of the leg is getting better, oriented x3. Pain is under control. Shortness of breath is better, having compression stockings at the legs. He is ambulating, doing rounds on the floor in the hospital. No chills. No fever. No nausea, vomiting, or diarrhea. No coughing. No other pedal complaints at that time. PHYSICAL EXAMINATION: VITAL SIGNS: Temperature 97.8, pulse 68, respiratory rate 17, blood pressure 120/80, pulse oximetry 97%. HEENT: Head normocephalic and atraumatic. Eyes: PERRLA. Extraocular muscles intact. Conjunctivae clear. Nose patent. NECK: Supple. No carotid bruits. No JVD or thyromegaly. CHEST: Bilaterally symmetrical. HEART: S1 and S2 positive. LUNGS: Clear to auscultation. ABDOMEN: Soft. Bowel sounds positive. No organomegaly. EXTREMITIES: No edema. No cyanosis. NEUROLOGIC: The patient is awake and alert. Moving all four extremities. No focal deficits. MEDICATIONS: Azithromycin, Lotrisone, Klonopin, Cymbalta, Lasix, Neurontin, Lac-Hydrin, Solu-Medrol, oxycodone, Seroquel, Aldactone, Thiamine. LABORATORY DATA: White blood cell 5.6, hemoglobin 14.2, hematocrit 45.7, and platelets 152. Sodium 147, potassium 4.3, BUN 19, creatinine 0.8, glucose 106. ASSESSMENT AND PLAN: Mr. Dilan Liang is 57-years old male with bilateral lower extremity edema with redness improving. Podiatry is on the case. Dr. Thomas, saw the patient. Getting Lotrisone cream on the legs, compression stocking, obesity, cirrhotic liver, sleep apnea syndrome, ascites, obstructive pulmonary disease, pulmonary hypertension, anxiety, depression, history of suicidal ideation in the past, large ascites, status post paracentesis, lumbar radiculopathy, history of herniated disk in the back. Dr. Jerome Gutierrez is his Pain Management. We will continue IV inhaled bronchodilators. Continue diuretics. Dr. Marte saw the patient. Dr. Garcias also saw the patient. Dr. Mccrary is on the case. Gastrointestinal and deep vein thrombosis prophylaxis. Repeat labs. We will follow with you. Winsome Mackey MD
--- NOTE | 2017-11-14 19:42 | PN ---
DATE: 11/14/2017 PULMONARY PROGRESS NOTE REFERRING PHYSICIAN: Dr. Mackey. SUBJECTIVE: He is out of bed to chair. Feels better. Decreased cough, decreased shortness of breath. No nausea or vomiting. No abdominal pain. Decreased leg swelling. OBJECTIVE: GENERAL: In no acute distress. VITAL SIGNS: Temperature is 98, heart rate is 67, respiratory rate is 20, blood pressure is 139/69 and pulse oximetry 93% on 2 liters nasal cannula. HEENT: Moist mucous membranes. No ulcer or thrush noted. NECK: Supple. No JVD. LUNGS: Has a scattered rhonchi. HEART: S1 and S2. ABDOMEN: Soft and nontender. Distended. EXTREMITIES: There is no edema. NEUROLOGIC: Awake, alert and follows simple commands. MEDICATIONS: He is on Aldactone 50 mg daily, Cymbalta 20 mg at bedtime, folic acid 1 mg daily, also on clonazepam 0.25 mg twice a day, Lasix 40 mg twice a day, Lotrisone twice a day, meropenem 1 g IV q. 8 hours, Neurontin 600 mg twice a day, oxycodone 10 mg q. 6 hours p.r.n., Seroquel 200 mg at bedtime, Solu-Medrol 20 mg q. 12 hours, vitamin B1 100 mg daily, Zithromax 500 mg daily. LABORATORY DATA: Reviewed and noted no new lab is available since yesterday. IMPRESSION AND PLAN: Morbid obesity, sleep apnea syndrome, chronic lung disease, ascites, obstructive pulmonary disease, pulmonary hypertension, anxiety disorder, depression, history of suicidal ideation in the past, largest ascites status post volume paracentesis, lumbar radiculopathy. Pulmonary point of view, doing okay. Continue IV and inhaled bronchodilator, antibiotics, diuretics, gastric prophylaxis, DVT prophylaxis, fall precautions, encourage BiPAP use while sleeping. Thank you and we will follow with you. Juan Marie MD
--- NOTE | 2017-11-14 22:27 | PN ---
DATE: 11/14/2017 SUBJECTIVE: Patient is in bed, in no acute distress, nontoxic. PHYSICAL EXAMINATION VITAL SIGNS: Temperature is 98, blood pressure is 120/70, respiratory rate of 16. HEENT: Unremarkable. NECK: Supple. LUNGS: Have decreased breath sounds. HEART: Normal S1, S2. ABDOMEN: Soft, nontender. LABORATORY EXAMINATION: Reveals the patient's white count to be 5.6, hemoglobin of 14, platelets 162. Chemistries reveals BUN of 19, creatinine of 0.8. Urinalysis is noted. WBC is 509 in ascitic fluid. Urine Legionella is negative. HIV is negative. Microbiology reveals cultures are negative including sputum culture, blood cultures, and peritoneal fluid culture. Dr. Weiss's note is reviewed from today. IMPRESSION AND PLAN: This 57-year-old male with morbid obesity, BMI of 46, spinal stenosis, arthritis, degenerative joint disease, liver disease, depression, anxiety, cirrhosis of liver, chronic obstructive lung disease, peripheral neuropathy, anemia, presented with sepsis, spontaneous bacterial peritonitis, peritoneal fluid over 500, and completed meropenem therapy. Currently on Cymbalta, p.o. Zithromax, we will change the meropenem to p.o. Augmentin and complete p.o. Zithromax both for 5 to 7 days. Raj Mccrary MD
[2017-11-14] MEDS: Amoxicillin-Clav 875-125 mg Tab PO SCH (23:00)
[2017-11-15] MEDS: Amoxicillin-Clav 875-125 mg Tab PO SCH ×3 (02:17→22:03)
[2017-11-15] MEDS: oxyCODONE 10 mg Immediate Release Tab PO PRN ×3 (07:25→18:43)
[2017-11-15 07:40] LABS: HEMOGLOBIN 14.3 g/dL (14.0-18.0); MEAN CELL VOLUME 88.5 fl (80.0-105.0); MEAN CORPUSCULAR HEMOGLOBIN 27.4 pg (25.0-35.0); MEAN PLATELET VOLUME 10.7 fl (7.0-11.0); RBC 5.21 10^6/uL (3.5-6.1); RED CELL DISTRIBUTION WIDTH 14.1 % (11.5-14.5); WHITE BLOOD COUNT 6.8 10^3/ul (4.5-11.0)
[2017-11-15 07:52] LABS: ALB/GLOB RATIO 1.3 (1.1-1.8); ALT/SGPT 62 U/L (7-56); AST/SGOT 53 U/L (17-59); BLOOD UREA NITROGEN 24 mg/dL (7-21); CALCIUM 8.9 mg/dL (8.4-10.5); GFR AFRICAN-AMERICAN > 60; GFR NON-AFRICAN AMERICAN > 60
[2017-11-15] MEDS: MethylPREDNISolone 40 mg Vial IVP SCH ×2 (09:11→22:04)
[2017-11-15] MEDS: Fluticasone/Vilanterol [Breo Ellipta 100-25 Mcg Inh] IH SCH (10:59)
[2017-11-15] MEDS: ALBUTEROL SULFATE IH SCH (10:59)
[2017-11-15] MEDS: Tiotropium Bromide [Spiriva Respimat] IH SCH ×2 (11:00→12:23)
[2017-11-15] MEDS: Ammonium Lactate 12% Lotion (225 g) EXT SCH ×2 (11:01→18:53)
[2017-11-15] MEDS: Clotrimazole/Betamethasone Cream(15 gm) TOP SCH ×3 (11:01→18:05)
--- NOTE | 2017-11-15 12:58 | CP.PCM.PN ---
<Xavier Hunt - Last Filed: 11/15/17 12:54> Subjective - Date & Time of Evaluation Date of Evaluation: 11/15/17 Time of Evaluation: 12:54 - Subjective Subjective: Podiatry Progress Note- Dr. Cho/ 57 y.o male seen and evaluated at bedside for lower extremity edema and erythema. Patient is seen resting comfortably at bedside in NAD, and AA0x3. Patient denies any acute overnight events. Nursing was at bedside putting compression stockings on. Patient denies n/v/cp/chills/f or d. Patient reports he is feeling much better. He can breathe. No other pedal complaints at this time. Objective - Vital Signs/Intake and Output Vital Signs (last 24 hours): Temp Pulse Resp BP Pulse Ox 98.6 F 69 20 139/90 97 11/15/17 07:36 11/15/17 07:36 11/15/17 07:36 11/15/17 07:36 11/15/17 07:36 Intake and Output: 11/15/17 11/15/17 06:59 18:59 Intake Total 1020 Balance 1020 - Medications Medications: Current Medications Amoxicillin/Clavulanate Potassium (Augmentin 875 Mg-125 Mg Tab) 1 tab PO Q12 [facility] PRN Reason: Protocol Stop: 11/21/17 22:01 Last Admin: 11/15/17 09:11 Dose: 1 tab Azithromycin (Zithromax) 500 mg PO DAILY [facility] PRN Reason: Protocol Last Admin: 11/15/17 09:13 Dose: 500 mg Betamethasone/Clotrimazole (Lotrisone) 0 gm TOP BID [facility] Last Admin: 11/15/17 11:01 Dose: Not Given Clonazepam (Klonopin) 0.25 mg PO BID [facility] PRN Reason: Protocol Last Admin: 11/15/17 09:12 Dose: 0.25 mg Duloxetine HCl (Cymbalta) 20 mg PO HS [facility] Last Admin: 11/14/17 21:07 Dose: 20 mg Folic Acid (Folic Acid) 1 mg PO DAILY [facility] Last Admin: 11/15/17 09:13 Dose: 1 mg Furosemide (Lasix) 40 mg IVP Q12H [facility] Last Admin: 11/15/17 05:44 Dose: 40 mg Gabapentin (Neurontin) 600 mg PO BID [facility] PRN Reason: Protocol Last Admin: 11/15/17 09:12 Dose: 600 mg Home Med (Home Med) 1 unit IH DAILY [facility] Last Admin: 11/15/17 10:59 Dose: Not Given Home Med (Home Med) 1 unit IH DAILY [facility] Last Admin: 11/15/17 10:59 Dose: 1 unit Home Med (Home Med) 1 unit IH DAILY [facility] Last Admin: 11/15/17 12:23 Dose: 1 unit Lactic Acid (Lac-Hydrin 12% Lotion (225 G)) 0 gm EXT DAILY [facility] Last Admin: 11/15/17 11:01 Dose: Not Given Methylprednisolone (Solu-Medrol) 20 mg IVP Q12 [facility] Last Admin: 11/15/17 09:11 Dose: 20 mg Oxycodone HCl (Oxycodone Immediate Release Tab) 10 mg PO Q6H PRN PRN Reason: Pain, severe (8-10) Last Admin: 11/15/17 07:25 Dose: 10 mg Quetiapine Fumarate (Seroquel) 200 mg PO HS [facility] PRN Reason: Protocol Last Admin: 11/14/17 21:06 Dose: 200 mg Sodium Chloride ([place] Nasal [place]) 0 ml NS DAILY PRN PRN Reason: Nasal congestion Last Admin: 11/12/17 14:49 Dose: 1 sprays Spironolactone (Aldactone) 50 mg PO DAILY [facility] Last Admin: 11/15/17 09:11 Dose: 50 mg Thiamine HCl (Vitamin B1 Tab) 100 mg PO DAILY [facility] Last Admin: 11/15/17 09:11 Dose: 100 mg - Labs Labs: 11/15/17 07:00 11/15/17 07:00 PT 16.9 SECONDS (9.4-12.5) H 11/10/17 06:40 INR 1.52 (0.93-1.08) H 11/10/17 06:40 APTT 33.6 Seconds (25.1-36.5) 11/09/17 10:10 - Constitutional Appears: Well, Non-toxic, No Acute Distress - Extremities Exam Additional comments: Vasc: DP and PT 2/4 bilaterally, CFT < 3 seconds to digits, temperature gradient WNL, pitting edema noted to the LE Ortho: tenderness with palpation to the LE, MM is 5/5 in all four compartments: dorsiflexion, plantarflexion, inversion, eversion Neuro: gross and protective sensation diminished Derm: reduced erythema noted to the entire LE bilaterally, mild xerosis to the LE noted- has improved significantly, no open lesions noted, no active drainage , no tunneling, no undermining no probe to bone, no open lesions to the LE - Neurological Exam Neurological Exam: Alert, Oriented x3 - Psychiatric Exam Psychiatric exam: Normal Affect, Normal Mood Assessment and Plan - Assessment and Plan (Free Text) Assessment: 57 y.o male wit bilaterally lower extremity edema with redness- improving Plan: Patient examined and evaluated at bedside with attending Dr. Thomas Charts, labs, vitals reviewed (afebrile, WBC=6.8 on 11/15/17 absent leukocytosis ) Discussed the plan in detail with attending Lotrisone cream will be applied to LE, followed by Lac-Hydrin later today by nursing Instructed on the importance of wearing compression stockings. Reports that patient has to wear compression stockings when ambulating May take off at night when in bed Patient is stable per podiatry standpoint Podiatry will continue to follow while in house Upon discharge, patient will followup with Dr. Cho in office within 1 week Upon discharge, patient is to apply Lotrison cream and Lac-Hydrin cream. C/w with compression. LE Elevation. <Kannan Thomas - Last Filed: 11/17/17 10:53> Objective - Vital Signs/Intake and Output Vital Signs (last 24 hours): Temp Pulse Resp BP Pulse Ox 97.7 F 52 L 20 102/64 96 11/17/17 07:00 11/17/17 07:00 11/17/17 07:00 11/17/17 07:00 11/17/17 07:00 Intake and Output: 11/17/17 11/17/17 06:59 18:59 Intake Total 420 Balance 420 - Medications Medications: Current Medications Albuterol Sulfate (Albuterol 0.042% Inhal Jena (1.25mg/3ml) Ud) 1.25 mg IH [id number] [facility] Stop: 11/17/17 20:00 Last Admin: 11/17/17 07:28 Dose: 1.25 mg Amoxicillin/Clavulanate Potassium (Augmentin 875 Mg-125 Mg Tab) 1 tab PO Q12 [facility] PRN Reason: Protocol Stop: 11/21/17 22:01 Last Admin: 11/17/17 10:14 Dose: 1 tab Azithromycin (Zithromax) 500 mg PO DAILY [facility] PRN Reason: Protocol Last Admin: 11/17/17 10:14 Dose: 500 mg Betamethasone/Clotrimazole (Lotrisone) 0 gm TOP BID [facility] Last Admin: 11/17/17 10:14 Dose: 1 appful Clonazepam (Klonopin) 0.25 mg PO BID [facility] PRN Reason: Protocol Last Admin: 11/17/17 10:14 Dose: 0.25 mg Duloxetine HCl (Cymbalta) 20 mg PO HS [facility] Last Admin: 11/16/17 22:02 Dose: 20 mg Folic Acid (Folic Acid) 1 mg PO DAILY [facility] Last Admin: 11/17/17 10:16 Dose: 1 mg Furosemide (Lasix) 40 mg IVP Q12H [facility] Last Admin: 11/17/17 05:30 Dose: 40 mg Gabapentin (Neurontin) 600 mg PO BID [facility] PRN Reason: Protocol Last Admin: 11/17/17 10:16 Dose: 600 mg Home Med (Home Med) 1 unit IH DAILY [facility] Last Admin: 11/17/17 10:18 Dose: Not Given Home Med (Home Med) 1 unit IH DAILY [facility] Last Admin: 11/17/17 10:17 Dose: 1 unit Home Med (Home Med) 1 unit IH DAILY [facility] Last Admin: 11/17/17 10:17 Dose: 1 unit Lactic Acid (Lac-Hydrin 12% Lotion (225 G)) 0 gm EXT DAILY [facility] Last Admin: 11/17/17 10:17 Dose: 1 unit Methylprednisolone (Solu-Medrol) 20 mg IVP Q12 [facility] Last Admin: 11/17/17 10:13 Dose: 20 mg Nicotine (Nicoderm Cq) 1 patch TD DAILY [facility] Last Admin: 11/17/17 10:18 Dose: 1 patch Oxycodone HCl (Oxycodone Immediate Release Tab) 10 mg PO Q6H PRN PRN Reason: Pain, severe (8-10) Last Admin: 11/17/17 05:33 Dose: 10 mg Quetiapine Fumarate (Seroquel) 200 mg PO HS [facility] PRN Reason: Protocol Last Admin: 11/16/17 22:02 Dose: 200 mg Sodium Chloride ([place] Nasal [place]) 0 ml NS DAILY PRN PRN Reason: Nasal congestion Last Admin: 11/12/17 14:49 Dose: 1 sprays Spironolactone (Aldactone) 100 mg PO DAILY [facility] Last Admin: 11/17/17 10:14 Dose: 100 mg Thiamine HCl (Vitamin B1 Tab) 100 mg PO DAILY [facility] Last Admin: 11/17/17 10:14 Dose: 100 mg - Labs Labs: 11/17/17 06:20 11/17/17 06:20 PT 16.9 SECONDS (9.4-12.5) H 11/10/17 06:40 INR 1.52 (0.93-1.08) H 11/10/17 06:40 APTT 33.6 Seconds (25.1-36.5) 11/09/17 10:10 Attending/Attestation - Attestation I have personally seen and examined this patient.: Yes I have fully participated in the care of the patient.: Yes I have reviewed all pertinent clinical information, including history, physical exam and plan: Yes
--- NOTE | 2017-11-15 18:51 | PN ---
DATE: 11/15/2017 SUBJECTIVE: Patient is in bed, in no acute distress, nontoxic. PHYSICAL EXAMINATION: VITAL SIGNS: Temperature is 98, blood pressure is 130/90, respiratory rate of 20. HEENT: Unremarkable. NECK: Supple. LUNGS: Have decreased breath sounds. HEART: Normal S1, S2. ABDOMEN: Soft, nontender. LABORATORY EXAMINATION: Reveals a white count of 6.8, hemoglobin of 14, platelets of 132. Chemistries reveal a BUN of 24, creatinine of 0.7. Urinalysis is noted. Peritoneal fluid is noted. Patient is currently on p.o. Augmentin and p.o. Zithromax. ASSESSMENT AND PLAN: This is a 57-year-old male with morbid obesity, body mass index of 46, spinal stenosis, arthritis, degenerative joint disease, liver disease, depression, anxiety, cirrhosis of liver, chronic obstructive lung disease, peripheral neuropathy, presented with, 1. Sepsis with spontaneous bacterial peritonitis with peritoneal fluid WBC count of over 500. Had completed meropenem. Currently on p.o. Zithromax and p.o. Augmentin; complete 5 to 7 days of antibiotics. Raj Mccrary MD
--- NOTE | 2017-11-15 23:36 | PN ---
DATE: 11/15/2017 SUBJECTIVE: This patient was seen and evaluated earlier, appears comfortable and tolerating diet. PHYSICAL EXAMINATION VITAL SIGNS: Temperature is 98.5, pulse 55, and blood pressure is 149/93. HEENT: Atraumatic and anicteric. NECK: Supple. HEART: S1 and S2 heard. LUNGS: Bilateral air entry present. ABDOMEN: Distended. Soft. EXTREMITIES: Edema present much improved. LABORATORY DATA: Hemoglobin 14.3, hematocrit 46.1, WBC 6.8, and platelets 132. Chemistry is BUN 24, creatinine 0.7, ALT of 62, and alkaline phosphatase is 73. IMPRESSION AND PLAN: This 57-year-old patient with a decompensated cirrhosis probably secondary to active alcohol use, history of pulmonary hypertension, chronic obstructive pulmonary disease, morbid obesity, anxiety, and depression admitted with ascites and shortness of breath. The patient was on p.o. Zithromax and meropenem has been changed to Augmentin. The patient's ascitic fluid showed relative lymphocytosis, neutrophil count is normal. I will speak with Dr. Mccrary, Infectious Disease regarding these antibiotics. The patient is presently on Lasix 40 mg IV q.12 hourly and Aldactone 50 mg daily. We will increase the dose of the Aldactone to 100 mg and we can able to reduce the dose of the Lasix to 40-60mg eventually. This importance of electrolytes follow up in this patient was stressed with diuretics therapy. The patient clearly understood the importance of close medical followup especially when he is on this diuretics regimen. The patient was strictly advised to avoid alcohol and stop smoking. Cielo Garcias MD [facility]
--- NOTE | 2017-11-16 01:12 | PN ---
PULMONARY PROGRESS NOTE DATE: 11/15/2017 REFERRING PHYSICIAN: Winsome Mackey MD SUBJECTIVE: He is ambulating in the room, feels better, still have cough, sputum production. No nausea, no vomiting, no diarrhea. Increased abdominal girth. Leg swelling is better. OBJECTIVE GENERAL: No acute distress. VITAL SIGNS: Temperature is 98, heart rate 55, respiratory rate is 20, blood pressure 136/88 and pulse of 98% room air. HEENT: Moist mucous membrane. Crowded airway. Mallampati score is IV. NECK: Supple. No JVD. LUNGS: Has fair airflow with rhonchi. HEART: S1 and S2. ABDOMEN: Soft. Distended. Positive bowel sounds. No tenderness. EXTREMITIES: Decreased edema. NEUROLOGIC: Awake, alert and follows simple command. MEDICATIONS: He is on Aldactone 50 mg daily, Augmentin 875 one tablet twice a day, Cymbalta 20 mg daily, folic acid 1 mg daily, Klonopin 0.25 mg twice a day, lactate at affected area twice a day, Lasix 40 mg twice a day, Lotrisone topically twice a day, Neurontin 600 mg twice a day, Nicoderm patch daily, nasal saline q.6 hour, oxycodone immediate release 10 mg q.6 hours p.r.n., Seroquel 200 mg at bedtime, Solu-Medrol 20 mg q. 12 hour, vitamin B 100 mg daily and Zithromax 500 mg daily. LABORATORY DATA: Shows hemoglobin 14.3, hematocrit 46.1, WBC 6.8 and platelet is 132. Sodium 141, potassium 4.2, chloride 100, bicarbonate 31, BUN 24, creatinine 0.7, glucose 111, calcium is 8.9, AST 53, ALT 62 and alk phos is 73. Albumin is 4.0. Microbiology; blood culture has been negative. IMPRESSION AND PLAN: Morbid obesity, sleep apnea syndrome, chronic obstructive lung disease, ascites, pulmonary hypertension, anxiety disorder, depression, history of suicidal ideation in the past, large ascites, status post volume thoracentesis, lumbar radiculopathy. Pulmonary point of view doing okay. Continue p.o. and inhaled bronchodilator, antibiotics, fall precaution, diuretics. Thank you and we will follow with you Juan Marie MD [facility] # [id number]
[2017-11-16] MEDS: oxyCODONE 10 mg Immediate Release Tab PO PRN ×4 (06:37→23:58)
[2017-11-16] MEDS: Ammonium Lactate 12% Lotion (225 g) EXT SCH (09:31)
[2017-11-16] MEDS: Clotrimazole/Betamethasone Cream(15 gm) TOP SCH ×2 (09:32→18:21)
[2017-11-16] MEDS: Tiotropium Bromide [Spiriva Respimat] IH SCH (09:33)
[2017-11-16] MEDS: Fluticasone/Vilanterol [Breo Ellipta 100-25 Mcg Inh] IH SCH (09:33)
[2017-11-16] MEDS: Amoxicillin-Clav 875-125 mg Tab PO SCH ×2 (09:35→22:01)
[2017-11-16] MEDS: MethylPREDNISolone 40 mg Vial IVP SCH ×2 (09:38→22:01)
--- NOTE | 2017-11-16 11:54 | CP.PCM.PN ---
<Xavier Hunt - Last Filed: 11/16/17 11:49> Subjective - Date & Time of Evaluation Date of Evaluation: 11/16/17 Time of Evaluation: 11:49 - Subjective Subjective: Podiatry Progress Note for Dr. Cho 57 y.o male seen at bedside for lower extremity lower extremity swelling and edema. Patient is seen resting comfortably at bedside, in NAD, and AA0X3. Patient denies acute overnight events. Patient reports that he is feeling stronger today and his shortness of breath continues to improve. Patient denies n/v/sob/cp/chills/f or calf pain. No new pedal complaints. Objective - Vital Signs/Intake and Output Vital Signs (last 24 hours): Temp Pulse Resp BP Pulse Ox 97.8 F 61 20 115/79 99 11/16/17 07:30 11/16/17 07:30 11/16/17 07:30 11/16/17 07:30 11/16/17 07:30 Intake and Output: 11/16/17 11/16/17 06:59 18:59 Intake Total 1260 Output Total 800 Balance 460 - Medications Medications: Current Medications Amoxicillin/Clavulanate Potassium (Augmentin 875 Mg-125 Mg Tab) 1 tab PO Q12 [place] PRN Reason: Protocol Stop: 11/21/17 22:01 Last Admin: 11/16/17 09:35 Dose: 1 tab Azithromycin (Zithromax) 500 mg PO DAILY [place] PRN Reason: Protocol Last Admin: 11/16/17 09:37 Dose: 500 mg Betamethasone/Clotrimazole (Lotrisone) 0 gm TOP BID [facility] Last Admin: 11/16/17 09:32 Dose: 1 appful Clonazepam (Klonopin) 0.25 mg PO BID [place] PRN Reason: Protocol Last Admin: 11/16/17 09:34 Dose: 0.25 mg Duloxetine HCl (Cymbalta) 20 mg PO HS [facility] Last Admin: 11/15/17 22:04 Dose: 20 mg Folic Acid (Folic Acid) 1 mg PO DAILY [facility] Last Admin: 11/16/17 09:37 Dose: 1 mg Furosemide (Lasix) 40 mg IVP Q12H [place] Last Admin: 11/16/17 06:36 Dose: 40 mg Gabapentin (Neurontin) 600 mg PO BID [place] PRN Reason: Protocol Last Admin: 11/16/17 09:37 Dose: 600 mg Home Med (Home Med) 1 unit IH DAILY [facility] Last Admin: 11/15/17 10:59 Dose: Not Given Home Med (Home Med) 1 unit IH DAILY [facility] Last Admin: 11/16/17 09:33 Dose: 1 unit Home Med (Home Med) 1 unit IH DAILY [facility] Last Admin: 11/16/17 09:33 Dose: 1 unit Lactic Acid (Lac-Hydrin 12% Lotion (225 G)) 0 gm EXT DAILY [facility] Last Admin: 11/16/17 09:31 Dose: 1 unit Methylprednisolone (Solu-Medrol) 20 mg IVP Q12 [facility] Last Admin: 11/16/17 09:38 Dose: 20 mg Nicotine (Nicoderm Cq) 1 patch TD DAILY [facility] Last Admin: 11/16/17 09:37 Dose: 1 patch Oxycodone HCl (Oxycodone Immediate Release Tab) 10 mg PO Q6H PRN PRN Reason: Pain, severe (8-10) Last Admin: 11/16/17 06:37 Dose: 10 mg Quetiapine Fumarate (Seroquel) 200 mg PO HS [facility] PRN Reason: Protocol Last Admin: 11/15/17 22:03 Dose: 200 mg Sodium Chloride ([place] Nasal [place]) 0 ml NS DAILY PRN PRN Reason: Nasal congestion Last Admin: 11/12/17 14:49 Dose: 1 sprays Spironolactone (Aldactone) 50 mg PO DAILY [facility] Last Admin: 11/16/17 09:34 Dose: 50 mg Thiamine HCl (Vitamin B1 Tab) 100 mg PO DAILY [facility] Last Admin: 11/16/17 09:37 Dose: 100 mg - Labs Labs: 11/15/17 07:00 11/15/17 07:00 PT 16.9 SECONDS (9.4-12.5) H 11/10/17 06:40 INR 1.52 (0.93-1.08) H 11/10/17 06:40 APTT 33.6 Seconds (25.1-36.5) 11/09/17 10:10 - Constitutional Appears: Well, Non-toxic, No Acute Distress - Extremities Exam Additional comments: Lower extremities focused examination: Vasc: DP and PT 2/4 bilaterally, CFT < 3 seconds to digits, temperature gradient WNL, pitting edema noted to the LE Ortho: no pain with palpation to the lower extremity, no pain with calf squeeze , MM is 5/5 in all four compartments: dorsiflexion, plantarflexion, inversion, eversion Neuro: gross and protective sensation diminished Derm: reduced erythema noted to the entire LE bilaterally, mild xerosis to the LE noted, more prominent to the anterior ankles b/l, has improved significantly , no open lesions noted, no active drainage, no tunneling, no undermining no probe to bone, no open lesions to the LE, hyperpigmentation noted to the entire anterior LE b/l. - Neurological Exam Neurological Exam: Alert, Awake, Oriented x3 - Psychiatric Exam Psychiatric exam: Normal Affect, Normal Mood Assessment and Plan - Assessment and Plan (Free Text) Assessment: 57 y.o male wit bilaterally lower extremity edema with erythema and xerosis - improving Plan: Patient examined and evaluated at bedside Charts, labs, vitals reviewed (afebrile, WBC=6.8 on 11/15/17 absent leukocytosis ) Discussed the plan in detail with attending Lotrisone cream applied to LE, followed by Gómez Ordered new lotrisone cream Instructed on the importance of wearing compression stockings, especially during ambulating Compression stockings may be removed in PM prior to sleeping Patient is stable per podiatry standpoint Podiatry will continue to follow while in house Upon discharge, will f/u in office with Dr. Cho <Aziza Cho - Last Filed: 11/19/17 14:24> Objective - Vital Signs/Intake and Output Vital Signs (last 24 hours): Temp Pulse Resp BP Pulse Ox 98.5 F 70 20 134/82 96 11/17/17 15:51 11/17/17 15:51 11/17/17 15:51 11/17/17 15:51 11/17/17 15:51 - Labs Labs: 11/17/17 06:20 11/17/17 06:20 PT 16.9 SECONDS (9.4-12.5) H 11/10/17 06:40 INR 1.52 (0.93-1.08) H 11/10/17 06:40 APTT 33.6 Seconds (25.1-36.5) 11/09/17 10:10 Attending/Attestation - Attestation I have personally seen and examined this patient.: Yes I have fully participated in the care of the patient.: Yes I have reviewed all pertinent clinical information, including history, physical exam and plan: Yes
--- NOTE | 2017-11-16 13:56 | PN ---
DATE: SUBJECTIVE: The patient is in bed, in no acute distress, nontoxic. PHYSICAL EXAMINATION: VITAL SIGNS: On exam, temperature is 97, blood pressure is 115/70, respiratory rate of 20, heart rate of 55. HEENT: Unremarkable. NECK: Supple. LUNGS: Have decreased breath sounds. HEART: Normal S1, S2. ABDOMEN: Soft, nontender. LABORATORY EXAMINATION: Reveals a white count of 6.8, hemoglobin of 14, platelets of 132. Chemistries reveal a BUN of 24, creatinine of 0.7. Review of medications reveals the patient to be on Augmentin and azithromycin. ASSESSMENT AND PLAN: A 57-year-old male with morbid obesity, body mass index of 46, spinal stenosis, arthritis, degenerative joint disease, liver disease, depression, anxiety, cirrhosis of the liver, chronic obstructive lung disease, peripheral neuropathy, presented with sepsis with spontaneous bacterial peritonitis with peritoneal fluid over 500 white blood cells and completed meropenem. Currently on p.o. Augmentin and p.o. Zithromax to complete 5-7 days. After that is completed, the patient may be on spontaneous bacterial peritonitis, prophylaxis of Cipro 750 mg once weekly. The patient's QTC on EKG is 398. Raj Mccrary MD
[2017-11-16] MEDS: ALBUTEROL SULFATE IH SCH (18:20)
[2017-11-16] MEDS: Albuterol 0.042% Inhal Sol (1.25 mg/3 mL) UD IH SCH (20:11)
--- NOTE | 2017-11-16 21:24 | PN ---
DATE: 11/16/2017 SUBJECTIVE: The patient is feeling much better. PHYSICAL EXAMINATION VITAL SIGNS: Temperature is afebrile, blood pressure 138/90, pulse 69. HEENT: Atraumatic, anicteric. NECK: Supple. HEART: S1 and S2 heard. LUNGS: Bilateral air entry present. ABDOMEN: Softly distended. Bowel sounds present. EXTREMITIES: Edema present. NEUROLOGICAL: Alert and oriented. Moves all the extremities. LABORATORY DATA: There are no recent labs today. IMPRESSION: 1. This 57-year-old patient admitted with decompensated cirrhosis, ascites, status post large volume paracentesis, had a paracentesis, which showed peritoneal fluid mainly lymphocytosis. On p.o. antibiotics. 2. History of chronic obstructive lung disease. 3. Morbid obesity. 4. Depression. PLAN: The patient is presently on Aldactone 50 mg daily and Lasix 40 mg q. 12 hourly. We will check the electrolytes tomorrow, then adjust the dose of the Aldactone to 100 mg. The patient was strictly advised also to avoid alcohol and also smoking. Thank you very much for allowing us to participate in the care the patient. Cielo Garcias MD
--- NOTE | 2017-11-16 23:18 | PN ---
DATE: 11/16/2017 REFERRING PHYSICIAN: Winsome Mackey MD SUBJECTIVE: He is ambulating in the room, feels better. Still has some cough and sputum production. No nausea, no vomiting, no diarrhea. Still have increased abdominal girth. Leg swelling is better. OBJECTIVE: GENERAL: In no acute distress. VITAL SIGNS: Temperature is 98, heart rate is 69, respiratory rate is 20, blood pressure is 124/85, pulse oximetry is 95% on room air. HEENT: Moist mucous membranes. No ulcer or thrush noted. NECK: Supple. No JVD. LUNGS: Have a fair airflow with rhonchi. HEART: S1 and S2. ABDOMEN: Distended, soft. EXTREMITIES: There is decreased edema. NEUROLOGIC: Awake, alert, follows simple commands. MEDICATIONS: He is on albuterol nebulizer q.6 hours; Aldactone mg daily; Augmentin 875 one tablet twice a day; Cymbalta 20 mg h.s.; folic acid 1 mg daily; Klonopin 0.25 mg twice a day; Lasix 40 mg q. 12 hour; Lotrisone to affected area twice a day; gabapentin 600 mg twice a day; Nicoderm patch daily; nasal saline p.r.n. basis; oxycodone immediate release 10 mg q.6 hours p.r.n.; Seroquel 200 mg h.s.; Solu-Medrol 20 mg q. 12 hours; vitamin B 100 mg daily; Zithromax 500 mg daily. LABORATORY DATA: Reviewed. No new lab is available since yesterday. Microbiology: Blood culture, peritoneal fluid and sputum, there is no growth. IMPRESSION AND PLAN: Morbid obesity, sleep apnea syndrome, chronic obstructive lung disease, ascites, pulmonary hypertension, anxiety disorder, depression, history of suicidal ideation in the past, ascites, status post volume paracentesis, lumbar radiculopathy. From pulmonary point of view, doing okay. Sleep apnea precaution. Encourage CPAP use. Urge the patient to stop smoking. Taper off steroids next 4 to 5 days. Discharge planning. Thank you and we will follow with you. Juan Marie MD [facility] # [id number]
--- NOTE | 2017-11-17 00:16 | PN ---
DATE: The patient is 57-year-old male. SUBJECTIVE: The patient is examined on the bedside, sitting on the chair, feeling congested, coughing. Explaining that he is wheezing. The patient denies any overnight events. No nausea, vomiting or diarrhea. Swelling of the leg is improving. PHYSICAL EXAMINATION: VITAL SIGNS: Temperature is 97.8, pulse 51, respiratory rate 20, blood pressure 115/79 and pulse oximetry 99. HEENT: Head normocephalic and atraumatic. Eyes: PERRLA. Extraocular muscles intact. Conjunctivae clear. Nose patent. Mucous membrane moist. NECK: Supple. No carotid bruits. No JVD or thyromegaly. CHEST: Bilaterally symmetrical. HEART: S1 and S2 positive. LUNGS: Clear to auscultation. ABDOMEN: Soft. Bowel sounds positive. No organomegaly. EXTREMITIES: Trace edema. No cyanosis. NEUROLOGIC: The patient is awake and alert. Moving all 4 extremities. No focal deficits. MEDICATIONS: Augmentin, Zithromax, Lotrisone, Klonopin, Cymbalta, folic acid, Lasix, Neurontin, oxycodone, Seroquel, normal saline and Aldactone. LABORATORY DATA: White blood cell is 6.8, hemoglobin 14.3, hematocrit 46.1 and platelets 132. Sodium 141, potassium 4.2, BUN 24, creatinine 0.7 and glucose 111. ASSESSMENT AND PLAN: Mr. Garth Kong is a 57-year-old male with renal insufficiency, hyperglycemia, has bilateral lower extremities edema with xerosis improving, history of obesity, cirrhosis of the liver, ascites status post paracentesis, chronic back pain, stenosis of the back, chronic obstructive pulmonary disease, obstructive sleep apnea syndrome, pulmonary hypertension, anxiety disorder, depression, history of suicidal ideation in the past, lumbar radiculopathy. We will continue inhaled bronchodilators. Fall precautions. The patient was taking nebulizer treatment p.r.n., I will make round the clock for 24 hours. Gastrointestinal and deep vein thrombosis prophylaxis. Repeat labs. We will follow up. Winsome Mackey MD
[2017-11-17] MEDS: Albuterol 0.042% Inhal Sol (1.25 mg/3 mL) UD IH SCH ×3 (01:36→13:47)
[2017-11-17] MEDS: oxyCODONE 10 mg Immediate Release Tab PO PRN ×3 (05:33→18:30)
[2017-11-17 06:53] LABS: BASO # 0.01 K/mm3 (0.0-2.0); BASO % 0.1 % (0.0-3.0); EOS % 0.3 % (1.5-5.0); GRAN # 5.64 (1.4-6.5); GRAN % 77.8 % (50.0-68.0); HEMOGLOBIN 14.5 g/dL (14.0-18.0); LYMPH # 0.7 (1.2-3.4); MEAN CELL VOLUME 88.7 fl (80.0-105.0); MEAN CORPUSCULAR HEMOGLOBIN 28.2 pg (25.0-35.0); MEAN CORPUSCULAR HGB CONC 31.7 g/dl (31.0-37.0); MEAN PLATELET VOLUME 11.3 fl (7.0-11.0); MONO # 0.9 (0.1-0.6); MONO % 12.8 % (1.0-6.0); RBC 5.15 10^6/uL (3.5-6.1); WHITE BLOOD COUNT 7.3 10^3/ul (4.5-11.0)
[2017-11-17 07:00] LABS: ALB/GLOB RATIO 1.3 (1.1-1.8); ALBUMIN 4.2 g/dL (3.0-4.8); ALT/SGPT 61 U/L (7-56); AST/SGOT 46 U/L (17-59); BLOOD UREA NITROGEN 23 mg/dL (7-21); CALCIUM 9.2 mg/dL (8.4-10.5); GFR AFRICAN-AMERICAN > 60; GFR NON-AFRICAN AMERICAN > 60
--- NOTE | 2017-11-17 09:31 | PN ---
DATE: 11/15/2017 SUBJECTIVE: The patient is a 57-year-old male. The patient is seen and examined at the bedside sitting on the chair, looking comfortable, doing physical therapy. No nausea, vomiting, or diarrhea. No hematuria or hematochezia. Leg swelling is better. No headache. No dizziness. PHYSICAL EXAMINATION: VITAL SIGNS: Temperature 98.5, pulse 55, blood pressure 149/93, and respiratory 20. HEENT: Head; normocephalic and atraumatic. Eyes; PERRLA. Extraocular muscles intact. Conjunctivae clear. Nose patent. Mucous membranes moist. NECK: Supple. No carotid bruits. No JVD or thyromegaly. CHEST: Bilaterally symmetrical. HEART: S1 and S2 positive. LUNGS: Clear to auscultation. ABDOMEN: Soft. Bowel sounds positive. No organomegaly. EXTREMITIES: No edema. No cyanosis. NEUROLOGIC: The patient is awake and alert. Moving all four extremities. No focal deficits. MEDICATIONS: Aldactone, Augmentin, Cymbalta, folic acid, clonazepam, Lac-Hydrin, Lasix, Lotrisone, Neurontin, Nicoderm, oxycodone, Seroquel, Solu-Medrol, thiamine, Zithromax. LABORATORY DATA: White blood cell 6.8, hemoglobin 14.3, hematocrit 46.1, and platelets 132. Sodium 141, potassium 4.2, BUN 24, creatinine 0.7, glucose 111. ASSESSMENT AND PLAN: Mr. Garth Kong is a 57-year-old male with renal insufficiency, hyperglycemia, abnormal liver function test, have human immunodeficiency virus 1, 2, and 4 duration negative[address] Seen by Dr. Mccrary, infectious disease. History of ethanol abuse came with cirrhosis of the liver, morbid obesity, body mass index of 46, spinal stenosis, arthritis, degenerative joint disease, depression, anxiety, chronic obstructive pulmonary disease, peripheral neuropathy, sepsis, spontaneous bacterial peritonitis, peritoneal fluid over 500, completed meropenem therapy, currently on Cymbalta and Zithromax. Dr. Mccrary change meropenem to Augmentin and complete p.o. Zithromax for 5 to 7 days. 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 Dermatitis of the leg is improving. History of suicidal ideation in the past, but right now he is comfortable. Continue inhaled bronchodilators, diuretics, gastric and deep venous thrombosis prophylaxis, encourage BiPAP use while sleeping. Repeat labs. We will followup. Winsome Mackey MD
[2017-11-17 09:58] VITALS: RESP 20; O2SAT 96
[2017-11-17] MEDS: MethylPREDNISolone 40 mg Vial IVP SCH (10:13)
[2017-11-17] MEDS: Clotrimazole/Betamethasone Cream(15 gm) TOP SCH ×2 (10:14→18:45)
[2017-11-17] MEDS: Amoxicillin-Clav 875-125 mg Tab PO SCH (10:14)
--- NOTE | 2017-11-17 10:16 | PN ---
DATE: 11/14/2017 SUBJECTIVE: This patient was seen and elevated earlier today. The patient appears much more comfortable. Tolerating diet. No complaints of any abdominal pain, ambulating. PHYSICAL EXAMINATION: VITAL SIGNS: Temperature is 97.8, pulse is 68, blood pressure is 121/80. HEENT: Atraumatic and anicteric. NECK: Supple. HEART: S1 and S2 heard. LUNGS: Bilateral air entry present. ABDOMEN: Soft, distended. EXTREMITIES: Edema present. Erythema has significantly improved. LABORATORY DATA: No labs today. IMPRESSION: This is a 57-year-old patient with decompensated cirrhosis, ascites had status post large volume paracentesis done. The ascites fluid analysis showed mainly relative lymphocytosis. The neutrophil count is less than 250. We will discuss with ID regarding this and antibiotic coverage. The patient has history of active chronic obstructive pulmonary disease, pulmonary hypertension, morbid obesity and history of active EtOH use. The patient's other comorbidities include anxiety and depression. PLAN AND RECOMMENDATIONS: 1. The patient is presently on IV Lasix 40 mg q. 12 hourly and also Aldactone 50 mg. We will slowly titrate the dose of Aldactone up and reduce the Lasix down based on the electrolytes. 2. The patient was strictly advised to avoid alcohol. 3. The patient is on antibiotics Zithromax and also on meropenem. The patient is also on prednisolone. Thank you very much for allowing us to participate in the care of the patient. Cielo Garcias MD
[2017-11-17] MEDS: Ammonium Lactate 12% Lotion (225 g) EXT SCH (10:17)
[2017-11-17] MEDS: Tiotropium Bromide [Spiriva Respimat] IH SCH (10:17)
[2017-11-17] MEDS: Fluticasone/Vilanterol [Breo Ellipta 100-25 Mcg Inh] IH SCH (10:17)
[2017-11-17] MEDS: ALBUTEROL SULFATE IH SCH (10:18)
[2017-11-17 15:51] VITALS: BP 134/82; PULSE 70; TEMP 98.5
--- NOTE | 2017-11-17 16:03 | CP.PCM.PN ---
<Gregory Henson - Last Filed: 11/17/17 15:58> Subjective - Date & Time of Evaluation Date of Evaluation: 11/17/17 Time of Evaluation: 15:58 - Subjective Subjective: Podiatry Progress Note for Dr. Thomas 57 y.o male seen at bedside for lower extremity edema. Patient is seen resting comfortably at bedside, in NAD, and AA0X3. Patient denies acute overnight events. Patient reports that he is feeling stronger today and his shortness of breath continues to improve. States that he has been walking laps around the floor without problem. Patient denies n/v/sob/cp/chills/f or calf pain. No new pedal complaints. Patient states he is to be discharged home today Objective - Vital Signs/Intake and Output Vital Signs (last 24 hours): Temp Pulse Resp BP Pulse Ox 98.5 F 70 20 134/82 96 11/17/17 15:51 11/17/17 15:51 11/17/17 15:51 11/17/17 15:51 11/17/17 15:51 Intake and Output: 11/17/17 11/17/17 06:59 18:59 Intake Total 420 Balance 420 - Medications Medications: Current Medications Albuterol Sulfate (Albuterol 0.042% Inhal [place] (1.25mg/3ml) Ud) 1.25 mg IH [id number] [place] Stop: 11/17/17 20:00 Last Admin: 11/17/17 13:47 Dose: 1.25 mg Amoxicillin/Clavulanate Potassium (Augmentin 875 Mg-125 Mg Tab) 1 tab PO Q12 [place] PRN Reason: Protocol Stop: 11/21/17 22:01 Last Admin: 11/17/17 10:14 Dose: 1 tab Azithromycin (Zithromax) 500 mg PO DAILY [facility] PRN Reason: Protocol Last Admin: 11/17/17 10:14 Dose: 500 mg Betamethasone/Clotrimazole (Lotrisone) 0 gm TOP BID [facility] Last Admin: 11/17/17 10:14 Dose: 1 appful Clonazepam (Klonopin) 0.25 mg PO BID [place] PRN Reason: Protocol Last Admin: 11/17/17 10:14 Dose: 0.25 mg Duloxetine HCl (Cymbalta) 20 mg PO HS [facility] Last Admin: 11/16/17 22:02 Dose: 20 mg Folic Acid (Folic Acid) 1 mg PO DAILY [facility] Last Admin: 11/17/17 10:16 Dose: 1 mg Furosemide (Lasix) 40 mg IVP Q12H [facility] Last Admin: 11/17/17 05:30 Dose: 40 mg Gabapentin (Neurontin) 600 mg PO BID [facility] PRN Reason: Protocol Last Admin: 11/17/17 10:16 Dose: 600 mg Home Med (Home Med) 1 unit IH DAILY [facility] Last Admin: 11/17/17 10:18 Dose: Not Given Home Med (Home Med) 1 unit IH DAILY [facility] Last Admin: 11/17/17 10:17 Dose: 1 unit Home Med (Home Med) 1 unit IH DAILY [facility] Last Admin: 11/17/17 10:17 Dose: 1 unit Lactic Acid (Lac-Hydrin 12% Lotion (225 G)) 0 gm EXT DAILY [facility] Last Admin: 11/17/17 10:17 Dose: 1 unit Methylprednisolone (Solu-Medrol) 20 mg IVP Q12 [facility] Last Admin: 11/17/17 10:13 Dose: 20 mg Nicotine (Nicoderm Cq) 1 patch TD DAILY [facility] Last Admin: 11/17/17 10:18 Dose: 1 patch Oxycodone HCl (Oxycodone Immediate Release Tab) 10 mg PO Q6H PRN PRN Reason: Pain, severe (8-10) Last Admin: 11/17/17 11:56 Dose: 10 mg Quetiapine Fumarate (Seroquel) 200 mg PO HS [facility] PRN Reason: Protocol Last Admin: 11/16/17 22:02 Dose: 200 mg Sodium Chloride ([place] Nasal [place]) 0 ml NS DAILY PRN PRN Reason: Nasal congestion Last Admin: 11/12/17 14:49 Dose: 1 sprays Spironolactone (Aldactone) 100 mg PO DAILY [facility] Last Admin: 11/17/17 10:14 Dose: 100 mg Thiamine HCl (Vitamin B1 Tab) 100 mg PO DAILY [facility] Last Admin: 11/17/17 10:14 Dose: 100 mg - Labs Labs: 11/17/17 06:20 11/17/17 06:20 PT 16.9 SECONDS (9.4-12.5) H 11/10/17 06:40 INR 1.52 (0.93-1.08) H 11/10/17 06:40 APTT 33.6 Seconds (25.1-36.5) 11/09/17 10:10 - Constitutional Appears: Well, Non-toxic, No Acute Distress - Extremities Exam Additional comments: Lower extremities focused examination: Vasc: DP and PT 2/4 bilaterally, CFT < 3 seconds to digits, temperature gradient WNL, pitting edema noted to the LE Ortho: no pain with palpation to the lower extremity, no pain with calf squeeze , MM is 5/5 in all four compartments: dorsiflexion, plantarflexion, inversion, eversion Neuro: gross and protective sensation diminished Derm: reduced erythema noted to the entire LE bilaterally, mild xerosis to the LE noted, more prominent to the anterior ankles b/l, has improved significantly , no open lesions noted, no active drainage, no tunneling, no undermining no probe to bone, no open lesions to the LE, hyperpigmentation noted to the entire anterior LE b/l. - Neurological Exam Neurological Exam: Alert, Awake, Oriented x3 - Psychiatric Exam Psychiatric exam: Normal Affect, Normal Mood Assessment and Plan - Assessment and Plan (Free Text) Assessment: 57 y.o male wit bilaterally lower extremity edema with erythema and xerosis - improving Plan: Patient seen and evaluated at bedside Plan discussed with attending Dr. Thomas Afebrile, absent leukocytosis LE US 11/09- No evidence of DVT b/l Continue IV abx per ID Applied Lotrisone and Lac Hydrin to b/l LE Applied compressive socks to b/l LE Advised patient to f/u with Dr. Cho as an outpatient following DC <Kannan Thomas - Last Filed: 11/18/17 11:15> Objective - Vital Signs/Intake and Output Vital Signs (last 24 hours): Temp Pulse Resp BP Pulse Ox 98.5 F 70 20 134/82 96 11/17/17 15:51 11/17/17 15:51 11/17/17 15:51 11/17/17 15:51 11/17/17 15:51 - Labs Labs: 11/17/17 06:20 11/17/17 06:20 PT 16.9 SECONDS (9.4-12.5) H 11/10/17 06:40 INR 1.52 (0.93-1.08) H 11/10/17 06:40 APTT 33.6 Seconds (25.1-36.5) 11/09/17 10:10 Attending/Attestation - Attestation I have personally seen and examined this patient.: Yes I have fully participated in the care of the patient.: Yes I have reviewed all pertinent clinical information, including history, physical exam and plan: Yes
--- NOTE | 2017-11-17 19:13 | CP.PCM.PN ---
Subjective - Date & Time of Evaluation Date of Evaluation: 11/17/17 Time of Evaluation: 11:45 - Subjective Subjective: Comfortable, no abdominal pain. No fevers. Objective - Vital Signs/Intake and Output Vital Signs (last 24 hours): Temp Pulse Resp BP Pulse Ox 98.5 F 70 20 134/82 96 11/17/17 15:51 11/17/17 15:51 11/17/17 15:51 11/17/17 15:51 11/17/17 15:51 - Medications Medications: Current Medications Albuterol Sulfate (Albuterol 0.042% Inhal [place] (1.25mg/3ml) Ud) 1.25 mg IH [id number] [facility] Stop: 11/17/17 20:00 Last Admin: 11/17/17 13:47 Dose: 1.25 mg Amoxicillin/Clavulanate Potassium (Augmentin 875 Mg-125 Mg Tab) 1 tab PO Q12 [place] PRN Reason: Protocol Stop: 11/21/17 22:01 Last Admin: 11/17/17 10:14 Dose: 1 tab Azithromycin (Zithromax) 500 mg PO DAILY [facility] PRN Reason: Protocol Last Admin: 11/17/17 10:14 Dose: 500 mg Betamethasone/Clotrimazole (Lotrisone) 0 gm TOP BID [facility] Last Admin: 11/17/17 18:45 Dose: 1 appful Clonazepam (Klonopin) 0.25 mg PO BID [facility] PRN Reason: Protocol Last Admin: 11/17/17 18:45 Dose: Not Given Duloxetine HCl (Cymbalta) 20 mg PO HS [facility] Last Admin: 11/16/17 22:02 Dose: 20 mg Folic Acid (Folic Acid) 1 mg PO DAILY [facility] Last Admin: 11/17/17 10:16 Dose: 1 mg Furosemide (Lasix) 40 mg IVP Q12H [facility] Last Admin: 11/17/17 18:45 Dose: Not Given Gabapentin (Neurontin) 600 mg PO BID [facility] PRN Reason: Protocol Last Admin: 11/17/17 18:44 Dose: Not Given Home Med (Home Med) 1 unit IH DAILY [facility] Last Admin: 11/17/17 10:18 Dose: Not Given Home Med (Home Med) 1 unit IH DAILY [facility] Last Admin: 11/17/17 10:17 Dose: 1 unit Home Med (Home Med) 1 unit IH DAILY [facility] Last Admin: 11/17/17 10:17 Dose: 1 unit Lactic Acid (Lac-Hydrin 12% Lotion (225 G)) 0 gm EXT DAILY [facility] Last Admin: 11/17/17 10:17 Dose: 1 unit Methylprednisolone (Solu-Medrol) 20 mg IVP Q12 [facility] Last Admin: 11/17/17 10:13 Dose: 20 mg Nicotine (Nicoderm Cq) 1 patch TD DAILY [facility] Last Admin: 11/17/17 10:18 Dose: 1 patch Oxycodone HCl (Oxycodone Immediate Release Tab) 10 mg PO Q6H PRN PRN Reason: Pain, severe (8-10) Last Admin: 11/17/17 18:30 Dose: 10 mg Quetiapine Fumarate (Seroquel) 200 mg PO HS [facility] PRN Reason: Protocol Last Admin: 11/16/17 22:02 Dose: 200 mg Sodium Chloride ([place] Nasal [place]) 0 ml NS DAILY PRN PRN Reason: Nasal congestion Last Admin: 11/12/17 14:49 Dose: 1 sprays Spironolactone (Aldactone) 100 mg PO DAILY [facility] Last Admin: 11/17/17 10:14 Dose: 100 mg Thiamine HCl (Vitamin B1 Tab) 100 mg PO DAILY [facility] Last Admin: 11/17/17 10:14 Dose: 100 mg - Labs Labs: 11/17/17 06:20 11/17/17 06:20 PT 16.9 SECONDS (9.4-12.5) H 11/10/17 06:40 INR 1.52 (0.93-1.08) H 11/10/17 06:40 APTT 33.6 Seconds (25.1-36.5) 11/09/17 10:10 - Constitutional Appears: Non-toxic, No Acute Distress - Head Exam Head Exam: NORMAL INSPECTION - ENT Exam ENT Exam: Mucous Membranes Moist - Neck Exam Neck Exam: absent: Meningismus - Respiratory Exam Respiratory Exam: Decreased Breath Sounds - Cardiovascular Exam Cardiovascular Exam: +S1, +S2 - GI/Abdominal Exam GI & Abdominal Exam: Soft. absent: Tenderness Assessment and Plan - Assessment and Plan (Free Text) Plan: Assessment Sepsis due to spontaneous bacterial peritonitis morbid obesity with BMI 46 liver cirrhosis degenerative joint disease COPD peripheral neuropathy depression and anxiety Plan Continue Augmentin for 4-6 more days, then switch to PO Cipro qweekly for prophylaxis
--- NOTE | 2017-11-17 22:33 | PN ---
PULMONARY PROGRESS NOTE DATE: 11/17/2017 REFERRING PHYSICIAN: Winsome Mackey MD SUBJECTIVE: The patient is out of bed to chair. Night was unremarkable. Feels much better. Tolerating BiPAP well. Cough has improved. No nausea, no vomiting, no diarrhea. Leg swelling has improved. OBJECTIVE: GENERAL: In no acute distress. VITAL SIGNS: Temperature is 98, heart rate is 70, respiratory rate is 20, blood pressure is 134/82, pulse oximetry is 96% on room air. HEENT: Moist mucous membranes. Crowded airway. Mallampati score is IV. NECK: Supple. No JVD. LUNGS: Have a fair airflow with few rhonchi. HEART: S1 and S2. ABDOMEN: Soft and nontender. No organomegaly. EXTREMITIES: Decreased edema. NEUROLOGIC: Awake, alert and follows simple commands. MEDICATIONS: He is on albuterol inhaled q.6 hours, Aldactone 100 mg daily, Augmentin 875/125 one tablet q.12 hours, Cymbalta 20 mg h.s., folic acid 1 mg daily, Klonopin 0.25 mg twice a day, Lasix 40 mg q. 12 hour, Lotrisone twice a day, gabapentin 600 mg twice a day, Nicoderm patch weekly, oxycodone immediate release 10 mg q.6 hours p.r.n., Seroquel 200 mg h.s., Solu-Medrol 20 mg IV q.12 hours, vitamin B 100 mg daily, Zithromax 500 mg daily. LABORATORY DATA: Shows hemoglobin 14.5, hematocrit 45.7, WBC 7.3 and platelet is 135. Sodium 142, potassium 4.4, chloride 101, bicarbonate 30, BUN 23, creatinine 0.7, glucose 126, calcium 9.2, total bilirubin 1.4, AST 46, ALT 61, alkaline phosphatase is 80, albumin is 4.2. IMPRESSION AND PLAN: Morbid obesity, sleep apnea syndrome, chronic obstructive lung disease, ascites, pulmonary hypertension, anxiety disorder, depression, history of suicidal ideation in the past, ascites, status post volume paracentesis, lumbar radiculopathy. From pulmonary point of view, doing well. Urge him to stop smoking. Agree with discharge planning on inhaled bronchodilator, fall precautions, diuretics, outpatient PFT, also suggested to continue CPAP while sleeping. Thank you and we will follow with you. Juan Marie MD [facility] # [id number]
--- NOTE | 2017-11-18 00:30 | PN ---
DATE: SUBJECTIVE: This patient was seen and evaluated today. The patient is doing much better now. Tolerating the diet. No complaints of any abdominal pain, plan for discharge. PHYSICAL EXAMINATION VITAL SIGNS: Temperature 98.5, pulse 70, blood pressure 134/82, respirations 20, O2 salutation 96%. HEENT: Atraumatic. Anicteric. NECK: Supple. HEART: S1 and S2 heard. LUNGS: Bilateral air entry present. ABDOMEN: Soft, distended. Ascites present. EXTREMITIES: Edema significantly improved. LABORATORY DATA: Hemoglobin 14.5, hematocrit 45.7, WBC 7.3, and platelets 135. BUN 23, creatinine 0.7, total bilirubin 1.4. IMPRESSION: This 57-year-old patient with past medical history of decompensated cirrhosis, probably secondary to alcohol, status post large volume paracentesis which showed peritoneal fluid, mainly lymphocytosis, on antibiotics. The patient's antibiotics changed to Zithromax (Z-Brayan) and Augmentin. The patient has chronic obstructive pulmonary disease exacerbation, morbid obesity, depression, obstructive sleep apnea. RECOMMENDATIONS: The dose of the Aldactone has been increased to 100 mg and the patient is going to be discharged home and the discharge medication changed to 50 mg of Aldactone and also 40 mg of Lasix. The patient is continuing Zithromax and Augmentin. The patient is due to follow up with primary care and advised GI followup after seen by the primary physician. The importance of the medical followup and follow up of the electrolytes and blood test explained to the patient. The patient was strictly advised to avoid smoking and alcohol. Thank you very much for allowing us to participate in the care of the patient. Cielo Garcias MD
--- NOTE | 2017-11-20 03:59 | DS ---
CHIEF COMPLAINT: Shortness of breath. HISTORY OF PRESENT ILLNESS: Mr. Garth Kong is a 57-year-old male with history of ascites, cirrhosis of the liver, history of ethanol abuse, came in with shortness of breath for 4 to 5 days, worse with activity; currently shortness of breath at rest when I saw the patient, coughing lots of sputum production over the last few days. The patient is also noting worsening of weight gain and feeling abdominal tightness as well as lower extremity swelling. According to the patient, alcohol, last drink was a week ago. The patient states that he is not making any noises with breathing and no wheezing. The patient states that no fever or chills. No nausea, vomiting or diarrhea. We admitted the patient, the patient was in distress due to abdominal distention. Chest x-ray was done. Ultrasound-guided paracentesis was done by Dr. Drew Romero. The patient was seen by Dr. Garcias, GI; Dr. Tejada, Infectious Disease; and Dr. Marie for shortness of breath. The patient had cellulitis of leg; for that, Dr. Kannan Thomas saw the patient. The patient was given antibiotics with tapering dose of steroid, and for the patient's pain management, he has chronic back pain, stenosis of the vertebral. He is the regular patient of Dr. Jerome Gutierrez. We put consult with Dr. Jerome Gutierrez, he canceled the patient's pain management. The patient was given physical therapy, improved sent home with prescriptions and with followup. PAST MEDICAL HISTORY: History of peripheral edema; asthma, COPD; peripheral neuropathy; wears eye glasses; anemia; cirrhosis of the liver due to ethanol abuse; multiple healed leg ulcer wounds, likely stasis dermatitis, healed; arthritis; back pain; herniated disk; spinal stenosis; unsteady gait, using cane; ascites, no paracentesis in the past; swollen genitalia. FAMILY HISTORY: Father and mother noncontributory. HABITS: Currently smoking, we gave him nicotine patch. Alcohol, yes, amount 6 per day. Substance abuse, no. ALLERGIES: THE PATIENT IS NOT ALLERGIC WITH ANY MEDICATIONS. HOME MEDICATIONS: Albuterol, Klonopin, folic acid, Lasix, Neurontin, Seroquel, and . REVIEW OF SYSTEMS: The patient was seen and examined on the bedside, to go home. No shortness of breath. No nausea, vomiting or diarrhea. No hematuria or hematochezia. Swelling of the leg is better. No fever. No chills. Tolerating BiPAP very well. Cough improved. Shortness of breath improved. He is able to walk himself. Swelling of the leg improved. No testicular swelling. PHYSICAL EXAMINATION: VITAL SIGNS: Temperature is 98, heart rate 70, respiratory rate 20, blood pressure 134/82, and pulse oximetry 92% on room air. HEENT: Head normocephalic and atraumatic. Eyes: PERRLA. Extraocular muscles intact. Conjunctivae are clear. Nose patent. NECK: Supple. No carotid bruits, JVD, or thyromegaly. CHEST: Bilaterally symmetrical. HEART: S1 and S2 positive. LUNGS: Has fair airflow with rhonchi. ABDOMEN: Soft, nontender. No organomegaly. EXTREMITIES: Decreased edema. NEUROLOGICAL: Awake, alert, and follows simple commands. MEDICATIONS: Albuterol, Aldactone, Augmentin, Cymbalta, folic acid, Klonopin, Lasix, Lotrisone, gabapentin, Nicoderm, oxycodone, Seroquel; Solu-Medrol, and Zithromax. LABORATORY DATA: Hemoglobin 14.5, hematocrit 45.7, white blood cell 7.3, and platelets 135. Sodium 142, potassium 4.4, BUN 23, creatinine 0.7, AST 46, and ALT 61. ASSESSMENT: Mr. Garth Kong is a 57-year-old male with multiple medical problems, morbid obesity, sleep apnea syndrome, chronic obstructive lung disease, ascites status post volume paracentesis, pulmonary hypertension, anxiety disorder, depression, history of suicidal ideation in the past, lumbar radiculopathy., He is still actively smoking, got nicotine patch, urged to quit smoking and drinking. According to Dr. Marie, the patient should continue CPAP during sleep. Renal insufficiency, hyperglycemia, sepsis due to spontaneous bacterial peritonitis, body mass index 46, degenerative joint disease, and peripheral neuropathy. The patient got antibiotics in the hospital. PLAN: Continue Augmentin for 6 more days and then switch to p.o. Cipro weekly for prophylaxis. The patient is told to come back to my office. We will discuss more options about prescription of the medications given. The patient will follow up with Dr. Jerome Gutierrez for pain management and Dr. Marie for sleep apnea syndrome. GI and DVT prophylaxis given. We will follow up. Winsome Mackey MD
== END 2017-11-17 19:36 | disposition home or self-care (01) | DRG 871 ==
LOC: ED 09:59 → ERH 12:21 → 5RNO 13:38
PROVIDERS: ADMIT Internal Medicine; ATTEND Internal Medicine
PROC: BW40ZZZ Ultrasonography of Abdomen (ICD-10-PCS; 2017-11-10)
PROC: 0W9G3ZZ Drainage of Peritoneal Cavity, Percutaneous Approach (ICD-10-PCS; principal; 2017-11-10 12:00)
DX: A41.9 Sepsis, unspecified organism (principal); K65.2 Spontaneous bacterial peritonitis; I50.33 Acute on chronic diastolic (congestive) heart failure; J18.9 Pneumonia, unspecified organism; E66.01 Morbid (severe) obesity due to excess calories; I27.20 Pulmonary hypertension, unspecified; J44.0 Chronic obstructive pulmonary disease with (acute) lower respiratory infection; J98.11 Atelectasis; J44.1 Chronic obstructive pulmonary disease with (acute) exacerbation; L03.119 Cellulitis of unspecified part of limb; Z68.42 Body mass index [BMI] 45.0-49.9, adult; B35.1 Tinea unguium; D64.9 Anemia, unspecified; K70.31 Alcoholic cirrhosis of liver with ascites; L30.9 Dermatitis, unspecified; D72.820 Lymphocytosis (symptomatic); F10.10 Alcohol abuse, uncomplicated; F17.200 Nicotine dependence, unspecified, uncomplicated; F41.9 Anxiety disorder, unspecified; G47.00 Insomnia, unspecified; G47.33 Obstructive sleep apnea (adult) (pediatric); G57.11 Meralgia paresthetica, right lower limb; G62.9 Polyneuropathy, unspecified; I87.2 Venous insufficiency (chronic) (peripheral); L85.3 Xerosis cutis; M19.90 Unspecified osteoarthritis, unspecified site; M48.00 Spinal stenosis, site unspecified; M54.30 Sciatica, unspecified side; Z79.899 Other long term (current) drug therapy; R26.81 Unsteadiness on feet; R40.2412 Glasgow coma scale score 13-15, at arrival to emergency department; F39 Unspecified mood [affective] disorder